=== PATIENT | female | born 1960 | race Caucasian/White ===

== ENCOUNTER 2018-08-18 11:15 | Outpatient (RCR) | payer OTHER, MEDICAID, SELFPAY ==
--- NOTE | 2018-04-06 16:31 | PT.OPPOC ---
Current Diagnoses Intervertebral disc disorders with radiculopathy, lumbar region (04/06/18) Other intervertebral disc degeneration, lumbosacral region (04/06/18) Low back pain (04/06/18) Difficulty in walking, not elsewhere classified (04/06/18) Weakness (04/06/18) Sprain of ligaments of lumbar spine, subsequent encounter (04/06/18) Provider Visit Care Team Role Provider Type Apolinar Garvin MD Attending Provider Non-Staff Primary Care Provider Specialty: Medical Address: [facility] [address], [place], [address] Email: Plan Of Care PT-OP-T Assessment and Plan Start: 04/06/18 15:16 Freq: Status: Active Protocol: Document 04/06/18 15:52 SAK (Rec: 04/06/18 16:28 SAK [id number]) Physical Therapy Assessment Rehab Potential Rehabilitation Potential Fair Evaluation Complexity Number of Personal Factors/Comorbidities 3 or More Number of Body Systems Impaired 4 or More Clinical Presentation at Evaluation Evolving Impairments Impairments Activity Tolerance Pain ROM Strength Goals activity tolerance Impairment activity tolerance Fdc Goal (LTG) Patient able to tolerate 45 min aquatic exercise program without an increase in pain LTG Duration 2 months 4 Impairment Strength Fdc Goal (LTG) Improve strength bilateral LE' s and trunk to at least 4+/5 LTG Duration 2 months 3 Impairment ROM Fdc Goal (LTG) Improve lumbar ROM to WNL LTG Duration 2 months 2 Impairment LBP as high as 7/10 Short Term Goal (STG) Decrease LBP to no greater than 5/10 with usual activities STG Duration 1 month Bench Manager Goal (LTG) Decrease pain to no greater than 3/10 LTG Duration 2 months 1 Impairment Oswestry disability index score 40% Short Term Goal (STG) Decrease Oswestry disability index score to 30% STG Duration 1 month Bench Manager Goal (LTG) Decrease Oswestry disability index score to 20% with patient able to return to work LTG Duration 2 months Physical Therapy Plan Frequency and Duration Frequency of Treatment 2x/Week Duration of Treatment 12 visits Plan of Care Start Date 04/06/18 Plan of Care End Date 06/04/18 Therapeutic Interventions Therapeutic Interventions Aquatic Therapy Patient/Caregiver Education Self-Care/Home Management Next Visit Focus/Plan Next Note Type Treatment Note Next Visit Plan Initiate aquatic therapy Plan of Care Dates Plan of Care Start Date 04/06/18 Plan of Care End Date 06/04/18 Please Sign and Return: I have reviewed this Plan of Care and certify that the skilled therapy services above are required to meet the patient?s needs. Physician Signature Date Printed Name and Credentials Clinical Instructor Signature Printed Name and Credentials
--- NOTE | 2018-04-06 16:31 | PT.OIE ---
Current Diagnoses Intervertebral disc disorders with radiculopathy, lumbar region (04/06/18) Other intervertebral disc degeneration, lumbosacral region (04/06/18) Low back pain (04/06/18) Difficulty in walking, not elsewhere classified (04/06/18) Weakness (04/06/18) Sprain of ligaments of lumbar spine, subsequent encounter (04/06/18) Provider Visit Care Team Role Provider Type Apolinar Garvin MD Attending Provider Non-Staff Primary Care Provider Specialty: Medical Address: [address] [place], [place] [address], [place], [address] Email: Physical Therapy Initial Evaluation PT-OP-A Visit Information Start: 04/06/18 15:16 Freq: Status: Active Protocol: Document 04/06/18 15:52 SAK (Rec: 04/06/18 16:28 SAK [id number]) Out-Patient Physical Therapy Visit Information Visit Information Visit Type Initial Evaluation Visit Start Time 15:10 Visit Stop Time 15:50 Total Visit Minutes 40 Visit Number 1 Number of 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 Reports during a work shift her pain gradually worsened, severe pain that night. Hasn' t been able to work since. 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 At this time patient reports employer not willing to do any accomodation of light duty, shorter shifts, etc. Prior to exacerbation of pain September 2017 patient reports she was working 4 days per week. Long history LBP, history of knee injury with resulting complex regional pain syndrome left knee. Starting accupuncture trial today through L&I. Previously seen by this PT for aquatic PT. Patient unable to do aquatic exercise independently due to cost. Treatment Goals Patient/Caregiver Goals Decrease pain, improve activity tolerance including ability to return to work. Prior Functional Status Baseline Function- ADL's Independent Baseline Function- Mobility Independent Baseline Function- Gait indep no device Baseline Function- Work/School working 4 days per week Baseline Function- Recreation/Hobbies minimal Current Functional Impairments (Reported) Functional Limitations- ADL's painful Functional Limitations- Mobility/Gait painful Functional Limitations- Work/School unable due to pain Functional Limitations- Recreation/ painful Hobbies Personal Factors Other Personal Factors That May Effect Patient smokes 1/2 to 1 pack Therapy/Recovery per day PT-OP-C Subjective Start: 04/06/18 15:16 Freq: Status: Active Protocol: Document 04/06/18 15:52 [facility] (Rec: 04/06/18 16:28 [facility] [id number]) Patient Questionnaires Oswestry Low Back Index Oswestry Score 40 Oswestry Impairment 40 to 59% Impaired (Score 40- 59) OP-PT Pain Assessment Pain Assessment Grid Paper Pain Assessment Grid Completed Yes Location lumbar spine, radiation into rahul post thighs Pain Location Details 2-7/10 Scale Used Numeric (1 - 10) Description Aching Burning Chronic Pressure Radiating Spasm Tender Tightness Frequency Frequent Pain Aggravating Factors Activity Exercise Standing Walking Pain Alleviating Factors Medication Inactivity Home Pain Medication Use Pain Medications Used Yes Pain Behaviors Pain Behaviors Facial Grimacing Guarding Wincing PT-OP-G Mobility & Gait Start: 04/06/18 15:16 Freq: Status: Active Protocol: Document 04/06/18 15:52 [facility] (Rec: 04/06/18 16:28 [facility] [id number]) OP Gait Assessment Gait Deviations General Gait Pattern Antalgic Wide Based Gait Comments Gait Comments Increased ER bilateral LE's PT-OP-J Posture/Palpation/Skin Start: 04/06/18 15:16 Freq: Status: Active Protocol: Document 04/06/18 15:52 [facility] (Rec: 04/06/18 16:28 [facility] [id number]) Posture Evaluation Position Standing Head/C-Spine Posture Forward Head T-Spine Posture Increased Kyphosis L-Spine Posture Flattened Palpation Assessment Location bilateral lumbar spine Palpation Findings Soft Tissue Tightness Muscle Guarding PT-OP-K Range of Motion Start: 04/06/18 15:16 Freq: Status: Active Protocol: Document 04/06/18 15:52 [facility] (Rec: 04/06/18 16:28 [facility] [id number]) Lumbar Spine Range of Motion Lumbar Spine Active Testing Position Standing Flexion 70 Extension 0 Rotation Left 20 Rotation Right 20 Lateral Flexion Left 10 Lateral Flexion Right 20 ROM Limitations Soft Tissue Tightness Pain Comments flexion occurs at hips, not lumbar spine Hip Goniometric Range of Motion Hip Measured in Degrees rahul Hip ROM WFL Yes Hip ROM Limitations Comments patient hypermobile Knee Goniometric Range of Motion Knee Measured in Degrees rahul Knee ROM WFL Yes Ankle and Foot Goniometric Range of Motion Ankle and Foot Measured in Degrees rahul Ankle/Foot ROM WFL Yes PT-OP-L Special Tests Start: 04/06/18 15:16 Freq: Status: Active Protocol: Document 04/06/18 15:52 [facility] (Rec: 04/06/18 16:28 [facility] [id number]) Special Tests Lumbar Spine Special Tests Prone Press Up Test Results unable Straight Leg Raise Test Results positive rahul Neural Special Tests- Lower Body Sciatic Nerve Tension Test Results positive rahul PT-OP-M Strength Start: 04/06/18 15:16 Freq: Status: Active Protocol: Document 04/06/18 15:52 [facility] (Rec: 04/06/18 16:28 [facility] [id number]) Trunk Strength Trunk Manual Muscle Testing Core Stabilization fair Reason Not Measured Pain Hip Strength Hip Manual Muscle Testing Left Flexion (L2) 4- Good- Abduction 4- Good- External Rotation 4- Good- Internal Rotation 4 Good Comments back pain with all resisted motions Right Flexion (L2) 4 Good Abduction 4 Good External Rotation 4- Good- Internal Rotation 4- Good- Comments back pain with all resisted motions Knee Strength Knee Manual Muscle Testing Left Flexion (S2) 4- Good- Extension (L3) 4 Good Comments painful Right Flexion (S2) 4+ Good+ Extension (L3) 4+ Good+ Ankle/Foot Strength Ankle and Foot Manual Muscle Testing Left Dorsiflexion (L4) 4+ Good+ Plantarflexion (S1) 4+ Good+ Right Dorsiflexion (L4) 4+ Good+ Plantarflexion (S1) 4+ Good+ Toe Strength Toe Manual Muscle Testing Left Great Toe Flexion 4+ Good+ Extension 4+ Good+ Right Great Toe Flexion 4+ Good+ Extension 4+ Good+ PT-OP-Q Treatments Start: 04/06/18 15:16 Freq: Status: Active Protocol: Document 04/06/18 15:52 [facility] (Rec: 04/06/18 16:28 [facility] [id number]) Self-Care/Home Management Treatment Education Patient Education Home Exercise Program Other Education keep track of walking, gradually progressing distance /time Activities Self-Care/Home Management Activities use of heat PT-OP-T Assessment and Plan Start: 04/06/18 15:16 Freq: Status: Active Protocol: Document 04/06/18 15:52 [facility] (Rec: 04/06/18 16:28 [facility] [id number]) Physical Therapy Assessment Rehab Potential Rehabilitation Potential Fair Evaluation Complexity Number of Personal Factors/Comorbidities 3 or More Number of Body Systems Impaired 4 or More Clinical Presentation at Evaluation Evolving Impairments Impairments Activity Tolerance Pain ROM Strength Goals activity tolerance Impairment activity tolerance Child Care Attendant School Goal (LTG) Patient able to tolerate 45 min aquatic exercise program without an increase in pain LTG Duration 2 months 4 Impairment Strength Senior Care Goal (LTG) Improve strength bilateral LE' s and trunk to at least 4+/5 LTG Duration 2 months 3 Impairment ROM Child Care Attendant School Goal (LTG) Improve lumbar ROM to WNL LTG Duration 2 months 2 Impairment LBP as high as 7/10 Short Term Goal (STG) Decrease LBP to no greater than 5/10 with usual activities STG Duration 1 month Senior Care Goal (LTG) Decrease pain to no greater than 3/10 LTG Duration 2 months 1 Impairment Oswestry disability index score 40% Short Term Goal (STG) Decrease Oswestry disability index score to 30% STG Duration 1 month Senior Care Goal (LTG) Decrease Oswestry disability index score to 20% with patient able to return to work LTG Duration 2 months Physical Therapy Plan Frequency and Duration Frequency of Treatment 2x/Week Duration of Treatment 12 visits Plan of Care Start Date 04/06/18 Plan of Care End Date 06/04/18 Therapeutic Interventions Therapeutic Interventions Aquatic Therapy Patient/Caregiver Education Self-Care/Home Management Next Visit Focus/Plan Next Note Type Treatment Note Next Visit Plan Initiate aquatic therapy
--- NOTE | 2018-04-12 09:44 | PT.OTN ---
Current Diagnoses Intervertebral disc disorders with radiculopathy, lumbar region (04/11/18) Other intervertebral disc degeneration, lumbosacral region (04/11/18) Sprain of ligaments of lumbar spine, subsequent encounter (04/11/18) Physical Therapy Treatment Note PT-OP-A Visit Information Start: 04/06/18 15:16 Freq: Status: Active Protocol: Document 04/11/18 12:30 SAK (Rec: 04/12/18 09:40 SAK [id number]) Out-Patient Physical Therapy Visit Information Visit Information Visit Type Aquatic Treatment Note Visit Start Time 12:30 Visit Stop Time 13:15 Total Visit Minutes 45 Visit Number 2 Number of SHOTGUN SHELL ASSEMBLY MACHINE ADJUSTER Visits 0 PT-OP-B Current Condition Start: 04/06/18 15:16 Freq: Status: Active Protocol: Document 04/06/18 15:52 SAK (Rec: 04/06/18 16:28 SAK [id number]) Current Condition History of Current Condition Onset Date September 2017 Current Complaints low back pain with radicular symptoms History of Current Condition Patient reports gradual worsening of LBP starting in September 2017, no known cause. Reports during a work shift her pain gradually worsened, severe pain that night. Hasn' t been able to work since. 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 At this time patient reports employer not willing to do any accomodation of light duty, shorter shifts, etc. Prior to exacerbation of pain September 2017 patient reports she was working 4 days per week. Long history LBP, history of knee injury with resulting complex regional pain syndrome left knee. Starting accupuncture trial today through L&I. Previously seen by this PT for aquatic PT. Patient unable to do aquatic exercise independently due to cost. Treatment Goals Patient/Caregiver Goals Decrease pain, improve activity tolerance including ability to return to work. Prior Functional Status Baseline Function- ADL's Independent Baseline Function- Mobility Independent Baseline Function- Gait indep no device Baseline Function- Work/School working 4 days per week Baseline Function- Recreation/Hobbies minimal Current Functional Impairments (Reported) Functional Limitations- ADL's painful Functional Limitations- Mobility/Gait painful Functional Limitations- Work/School unable due to pain Functional Limitations- Recreation/ painful Hobbies Personal Factors Other Personal Factors That May Effect Patient smokes 1/2 to 1 pack Therapy/Recovery per day PT-OP-C Subjective Start: 04/06/18 15:16 Freq: Status: Active Protocol: Document 04/11/18 12:30 [facility] (Rec: 04/12/18 09:40 [facility] [id number]) OP-PT Subjective Patient Comments Patient Comments Went to first accupuncture appointment and reports good symptom relief, going back today after PT. PT-OP-G Mobility & Gait Start: 04/06/18 15:16 Freq: Status: Active Protocol: Document 04/06/18 15:52 [facility] (Rec: 04/06/18 16:28 [facility] [id number]) OP Gait Assessment Gait Deviations General Gait Pattern Antalgic Wide Based Gait Comments Gait Comments Increased ER bilateral LE's PT-OP-J Posture/Palpation/Skin Start: 04/06/18 15:16 Freq: Status: Active Protocol: Document 04/06/18 15:52 [facility] (Rec: 04/06/18 16:28 [facility] [id number]) Posture Evaluation Position Standing Head/C-Spine Posture Forward Head T-Spine Posture Increased Kyphosis L-Spine Posture Flattened Palpation Assessment Location bilateral lumbar spine Palpation Findings Soft Tissue Tightness Muscle Guarding PT-OP-K Range of Motion Start: 04/06/18 15:16 Freq: Status: Active Protocol: Document 04/06/18 15:52 [facility] (Rec: 04/06/18 16:28 [facility] [id number]) Lumbar Spine Range of Motion Lumbar Spine Active Testing Position Standing Flexion 70 Extension 0 Rotation Left 20 Rotation Right 20 Lateral Flexion Left 10 Lateral Flexion Right 20 ROM Limitations Soft Tissue Tightness Pain Comments flexion occurs at hips, not lumbar spine Hip Goniometric Range of Motion Hip Measured in Degrees rahul Hip ROM WFL Yes Hip ROM Limitations Comments patient hypermobile Knee Goniometric Range of Motion Knee Measured in Degrees rahul Knee ROM WFL Yes Ankle and Foot Goniometric Range of Motion Ankle and Foot Measured in Degrees rahul Ankle/Foot ROM WFL Yes PT-OP-L Special Tests Start: 04/06/18 15:16 Freq: Status: Active Protocol: Document 04/06/18 15:52 [facility] (Rec: 04/06/18 16:28 [facility] [id number]) Special Tests Lumbar Spine Special Tests Prone Press Up Test Results unable Straight Leg Raise Test Results positive rahul Neural Special Tests- Lower Body Sciatic Nerve Tension Test Results positive rahul PT-OP-M Strength Start: 04/06/18 15:16 Freq: Status: Active Protocol: Document 04/06/18 15:52 [facility] (Rec: 04/06/18 16:28 [facility] [id number]) Trunk Strength Trunk Manual Muscle Testing Core Stabilization fair Reason Not Measured Pain Hip Strength Hip Manual Muscle Testing Left Flexion (L2) 4- Good- Abduction 4- Good- External Rotation 4- Good- Internal Rotation 4 Good Comments back pain with all resisted motions Right Flexion (L2) 4 Good Abduction 4 Good External Rotation 4- Good- Internal Rotation 4- Good- Comments back pain with all resisted motions Knee Strength Knee Manual Muscle Testing Left Flexion (S2) 4- Good- Extension (L3) 4 Good Comments painful Right Flexion (S2) 4+ Good+ Extension (L3) 4+ Good+ Ankle/Foot Strength Ankle and Foot Manual Muscle Testing Left Dorsiflexion (L4) 4+ Good+ Plantarflexion (S1) 4+ Good+ Right Dorsiflexion (L4) 4+ Good+ Plantarflexion (S1) 4+ Good+ Toe Strength Toe Manual Muscle Testing Left Great Toe Flexion 4+ Good+ Extension 4+ Good+ Right Great Toe Flexion 4+ Good+ Extension 4+ Good+ PT-OP-Q Treatments Start: 04/06/18 15:16 Freq: Status: Active Protocol: Document 04/06/18 15:52 [facility] (Rec: 04/06/18 16:28 [facility] [id number]) Self-Care/Home Management Treatment Education Patient Education Home Exercise Program Other Education keep track of walking, gradually progressing distance /time Activities Self-Care/Home Management Activities use of heat PT-OP-S Aquatic Treatment Start: 04/06/18 15:16 Freq: Status: Active Protocol: Document 04/11/18 12:30 [facility] (Rec: 04/12/18 09:43 [facility] [id number]) Aquatics Treatment Pool Entry/Exit Pool Entry/Exit Method Stairs Assistance Independent Water Walking straight leg may Comments painful fwd,bck,side,may Water Level Chest Level Level of Assistance Verbal Cues Lower Extremity Exercises circles Details CW and CCW Body Position Standing Reps/Duration 10x ea hip ab/ad, flex/ext Body Position Standing Water Level Chest Level Reps/Duration 10xea Lower Extremity Stretches HS Body Position Standing Water Level [place] Reps/Duration 2 Comments wall Upper Extremity Exercises hor ab/ad, flex/ext Details DLS emphasis, rahul and unil Body Position Standing Water Level Chest Level Reps/Duration 10x ea [place] Activities [place] Activities Bicycle Bicycle Backwards [place] Running Hip Abduction/Adduction Equipment large noodle Duration 20 min Comments cues for core stabilization and postural alignment PT-OP-T Assessment and Plan Start: 04/06/18 15:16 Freq: Status: Active Protocol: Document 04/11/18 12:30 SAK (Rec: 04/12/18 09:40 SAK [id number]) Physical Therapy Assessment Goals activity tolerance Impairment activity tolerance Novelty Twister Operator Goal (LTG) Patient able to tolerate 45 min aquatic exercise program without an increase in pain LTG Duration 2 months 4 Impairment Strength Novelty Twister Operator Goal (LTG) Improve strength bilateral LE' s and trunk to at least 4+/5 LTG Duration 2 months 3 Impairment ROM Intermediate Goal (LTG) Improve lumbar ROM to WNL LTG Duration 2 months 2 Impairment LBP as high as 7/10 Short Term Goal (STG) Decrease LBP to no greater than 5/10 with usual activities STG Duration 1 month Novelty Twister Operator Goal (LTG) Decrease pain to no greater than 3/10 LTG Duration 2 months 1 Impairment Oswestry disability index score 40% Short Term Goal (STG) Decrease Oswestry disability index score to 30% STG Duration 1 month Novelty Twister Operator Goal (LTG) Decrease Oswestry disability index score to 20% with patient able to return to work LTG Duration 2 months Assessment Summary Assessment good tolerance for aquatic therapy session today, only activity painful was straight leg march in shallow Physical Therapy Plan Frequency and Duration Frequency of Treatment 2x/Week Duration of Treatment 12 visits Plan of Care Start Date 04/06/18 Plan of Care End Date 06/04/18 Next Visit Focus/Plan Next Note Type Treatment Note Next Visit Plan Progress aquatic therapy activities as tolerated. Manual techniques as needed for pain management.
--- NOTE | 2018-04-20 14:49 | PT.OTN ---
Current Diagnoses Intervertebral disc disorders with radiculopathy, lumbar region (04/20/18) Other intervertebral disc degeneration, lumbosacral region (04/20/18) Sprain of ligaments of lumbar spine, subsequent encounter (04/20/18) Physical Therapy Treatment Note PT-OP-A Visit Information Start: 04/06/18 15:16 Freq: Status: Active Protocol: Document 04/20/18 10:15 LJ (Rec: 04/20/18 14:48 LJ [id number]) Out-Patient Physical Therapy Visit Information Visit Information Visit Type Aquatic Treatment Note Visit Start Time 10:15 Visit Stop Time 11:00 Total Visit Minutes 45 Visit Number 3 Number of REGISTERED PUBLIC SUR[employer]YOR Visits 1 PT-OP-B Current Condition Start: 04/06/18 15:16 Freq: Status: Active Protocol: Document 04/06/18 15:52 SAK (Rec: 04/06/18 16:28 SAK [id number]) Current Condition History of Current Condition Onset Date September 2017 Current Complaints low back pain with radicular symptoms History of Current Condition Patient reports gradual worsening of LBP starting in September 2017, no known cause. Reports during a work shift her pain gradually worsened, severe pain that night. Hasn' t been able to work since. 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 At this time patient reports employer not willing to do any accomodation of light duty, shorter shifts, etc. Prior to exacerbation of pain September 2017 patient reports she was working 4 days per week. Long history LBP, history of knee injury with resulting complex regional pain syndrome left knee. Starting accupuncture trial today through [facility]. Previously seen by this PT for aquatic PT. Patient unable to do aquatic exercise independently due to cost. Treatment Goals Patient/Caregiver Goals Decrease pain, improve activity tolerance including ability to return to work. Prior Functional Status Baseline Function- ADL's Independent Baseline Function- Mobility Independent Baseline Function- Gait indep no device Baseline Function- Work/School working 4 days per week Baseline Function- Recreation/Hobbies minimal Current Functional Impairments (Reported) Functional Limitations- ADL's painful Functional Limitations- Mobility/Gait painful Functional Limitations- Work/School unable due to pain Functional Limitations- Recreation/ painful Hobbies Personal Factors Other Personal Factors That May Effect Patient smokes 1/2 to 1 pack Therapy/Recovery per day PT-OP-C Subjective Start: 04/06/18 15:16 Freq: Status: Active Protocol: Document 04/11/18 12:30 SAK (Rec: 04/12/18 09:40 [facility] [id number]) OP-PT Subjective Patient Comments Patient Comments Went to first accupuncture appointment and reports good symptom relief, going back today after PT. PT-OP-G Mobility & Gait Start: 04/06/18 15:16 Freq: Status: Active Protocol: Document 04/06/18 15:52 SAK (Rec: 04/06/18 16:28 [facility] [id number]) OP Gait Assessment Gait Deviations General Gait Pattern Antalgic Wide Based Gait Comments Gait Comments Increased ER bilateral LE's PT-OP-J Posture/Palpation/Skin Start: 04/06/18 15:16 Freq: Status: Active Protocol: Document 04/06/18 15:52 [facility] (Rec: 04/06/18 16:28 [facility] [id number]) Posture Evaluation Position Standing Head/C-Spine Posture Forward Head T-Spine Posture Increased Kyphosis L-Spine Posture Flattened Palpation Assessment Location bilateral lumbar spine Palpation Findings Soft Tissue Tightness Muscle Guarding PT-OP-K Range of Motion Start: 04/06/18 15:16 Freq: Status: Active Protocol: Document 04/06/18 15:52 [facility] (Rec: 04/06/18 16:28 [facility] [id number]) Lumbar Spine Range of Motion Lumbar Spine Active Testing Position Standing Flexion 70 Extension 0 Rotation Left 20 Rotation Right 20 Lateral Flexion Left 10 Lateral Flexion Right 20 ROM Limitations Soft Tissue Tightness Pain Comments flexion occurs at hips, not lumbar spine Hip Goniometric Range of Motion Hip Measured in Degrees rahul Hip ROM WFL Yes Hip ROM Limitations Comments patient hypermobile Knee Goniometric Range of Motion Knee Measured in Degrees rahul Knee ROM WFL Yes Ankle and Foot Goniometric Range of Motion Ankle and Foot Measured in Degrees rahul Ankle/Foot ROM WFL Yes PT-OP-L Special Tests Start: 04/06/18 15:16 Freq: Status: Active Protocol: Document 04/06/18 15:52 [facility] (Rec: 04/06/18 16:28 [facility] [id number]) Special Tests Lumbar Spine Special Tests Prone Press Up Test Results unable Straight Leg Raise Test Results positive rahul Neural Special Tests- Lower Body Sciatic Nerve Tension Test Results positive rahul PT-OP-M Strength Start: 04/06/18 15:16 Freq: Status: Active Protocol: Document 04/06/18 15:52 SAK (Rec: 04/06/18 16:28 SAK [id number]) Trunk Strength Trunk Manual Muscle Testing Core Stabilization fair Reason Not Measured Pain Hip Strength Hip Manual Muscle Testing Left Flexion (L2) 4- Good- Abduction 4- Good- External Rotation 4- Good- Internal Rotation 4 Good Comments back pain with all resisted motions Right Flexion (L2) 4 Good Abduction 4 Good External Rotation 4- Good- Internal Rotation 4- Good- Comments back pain with all resisted motions Knee Strength Knee Manual Muscle Testing Left Flexion (S2) 4- Good- Extension (L3) 4 Good Comments painful Right Flexion (S2) 4+ Good+ Extension (L3) 4+ Good+ Ankle/Foot Strength Ankle and Foot Manual Muscle Testing Left Dorsiflexion (L4) 4+ Good+ Plantarflexion (S1) 4+ Good+ Right Dorsiflexion (L4) 4+ Good+ Plantarflexion (S1) 4+ Good+ Toe Strength Toe Manual Muscle Testing Left Great Toe Flexion 4+ Good+ Extension 4+ Good+ Right Great Toe Flexion 4+ Good+ Extension 4+ Good+ PT-OP-Q Treatments Start: 04/06/18 15:16 Freq: Status: Active Protocol: Document 04/06/18 15:52 [facility] (Rec: 04/06/18 16:28 [facility] [id number]) Self-Care/Home Management Treatment Education Patient Education Home Exercise Program Other Education keep track of walking, gradually progressing distance /time Activities Self-Care/Home Management Activities use of heat PT-OP-S Aquatic Treatment Start: 04/06/18 15:16 Freq: Status: Active Protocol: Document 04/20/18 10:15 WILLIAM (Rec: 04/20/18 14:48 LJ [id number]) Aquatics Treatment Pool Entry/Exit Pool Entry/Exit Method Stairs Assistance Independent Water Walking fwd,bck, Water Level Chest Level Lower Extremity Exercises circles Details CW and CCW Body Position Standing Reps/Duration 10x ea hip ab/ad, flex/ext Body Position Standing Water Level Chest Level Reps/Duration 10xea Lower Extremity Stretches HS Water Level [place] Reps/Duration 2 Comments wall Upper Extremity Exercises lateral pull downs w/lg buoys Water Level [place] Reps/Duration 2 x5 reps [place] Activities [place] Activities Bicycle Bicycle Backwards [place] Running Hip Abduction/Adduction Sit Kicks Other Activities pendulum ab curls SLR in corner x 10 Equipment large noodle Duration 20 min Comments cues for core stabilization and postural alignment Manual Techniques Erin Bourne For lumbar flexibility and relaxation PT-OP-T Assessment and Plan Start: 04/06/18 15:16 Freq: Status: Active Protocol: Document 04/20/18 10:15 WILLIAM (Rec: 04/20/18 14:48 WILLIAM [id number]) Physical Therapy Assessment Rehab Potential Rehabilitation Potential Fair Evaluation Complexity Number of Personal Factors/Comorbidities 3 or More Number of Body Systems Impaired 4 or More Clinical Presentation at Evaluation Evolving Impairments Impairments Activity Tolerance Pain ROM Strength Goals activity tolerance Impairment activity tolerance Snf Goal (LTG) Patient able to tolerate 45 min aquatic exercise program without an increase in pain. Reluctant to attempt activities recommended by therapist. Tended to do what she had been doing in the past LTG Duration 2 months 4 Impairment Strength Snf Goal (LTG) Improve strength bilateral LE' s and trunk to at least 4+/5 LTG Duration 2 months 3 Impairment ROM Snf Goal (LTG) Improve lumbar ROM to WNL LTG Duration 2 months 2 Impairment LBP as high as 7/10 Short Term Goal (STG) Decrease LBP to no greater than 5/10 with usual activities STG Duration 1 month Baggage Clerk Goal (LTG) Decrease pain to no greater than 3/10 LTG Duration 2 months 1 Impairment Oswestry disability index score 40% Short Term Goal (STG) Decrease Oswestry disability index score to 30% STG Duration 1 month Snf Goal (LTG) Decrease Oswestry disability index score to 20% with patient able to return to work LTG Duration 2 months Assessment Summary Assessment Pt tolerated gentle exercises in deep and shallow. Tended to do the exercises she waned rather than exercises recommended by therapist. No c /o pain. Pt remained in pool to continue workout on her own . Demonstrated good body awareness and posture. Physical Therapy Plan Next Visit Focus/Plan Next Note Type Treatment Note Next Visit Plan Progress aquatic therapy activities as tolerated. Manual techniques as needed for pain management.
--- NOTE | 2018-04-20 14:49 | PT.OTN ---
Current Diagnoses Intervertebral disc disorders with radiculopathy, lumbar region (04/20/18) Other intervertebral disc degeneration, lumbosacral region (04/20/18) Sprain of ligaments of lumbar spine, subsequent encounter (04/20/18) Physical Therapy Treatment Note PT-OP-A Visit Information Start: 04/06/18 15:16 Freq: Status: Active Protocol: Document 04/20/18 10:15 LJ (Rec: 04/20/18 14:48 LJ [id number]) Out-Patient Physical Therapy Visit Information Visit Information Visit Type Aquatic Treatment Note Visit Start Time 10:15 Visit Stop Time 11:00 Total Visit Minutes 45 Visit Number 3 Number of ENVIRONMENTAL DEPARTMENT MANAGER Visits 1 PT-OP-B Current Condition Start: 04/06/18 15:16 Freq: Status: Active Protocol: Document 04/06/18 15:52 SAK (Rec: 04/06/18 16:28 SAK [id number]) Current Condition History of Current Condition Onset Date September 2017 Current Complaints low back pain with radicular symptoms History of Current Condition Patient reports gradual worsening of LBP starting in September 2017, no known cause. Reports during a work shift her pain gradually worsened, severe pain that night. Hasn' t been able to work since. 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 At this time patient reports employer not willing to do any accomodation of light duty, shorter shifts, etc. Prior to exacerbation of pain September 2017 patient reports she was working 4 days per week. Long history LBP, history of knee injury with resulting complex regional pain syndrome left knee. Starting accupuncture trial today through [facility]. Previously seen by this PT for aquatic PT. Patient unable to do aquatic exercise independently due to cost. Treatment Goals Patient/Caregiver Goals Decrease pain, improve activity tolerance including ability to return to work. Prior Functional Status Baseline Function- ADL's Independent Baseline Function- Mobility Independent Baseline Function- Gait indep no device Baseline Function- Work/School working 4 days per week Baseline Function- Recreation/Hobbies minimal Current Functional Impairments (Reported) Functional Limitations- ADL's painful Functional Limitations- Mobility/Gait painful Functional Limitations- Work/School unable due to pain Functional Limitations- Recreation/ painful Hobbies Personal Factors Other Personal Factors That May Effect Patient smokes 1/2 to 1 pack Therapy/Recovery per day PT-OP-C Subjective Start: 04/06/18 15:16 Freq: Status: Active Protocol: Document 04/20/18 14:48 LJ (Rec: 04/20/18 14:49 LJ [email or web address]) OP-PT Subjective Patient Comments Patient Comments no new complaints. 04/20/18 14:49 PT OP Treatment Note by Gertrudis Joseph Current Diagnoses Intervertebral disc disorders with radiculopathy, lumbar region (04/20/18) Other intervertebral disc degeneration, lumbosacral region (04/20/18) Sprain of ligaments of lumbar spine, subsequent encounter (04/20/18) Physical Therapy Treatment Note PT-OP-A Visit Information Start: 04/06/18 15:16 Freq: Status: Active Protocol: Document 04/20/18 10:15 LJ (Rec: 04/20/18 14:48 LJ [email or web address]) Out-Patient Physical Therapy Visit Information Visit Information Visit Type Aquatic Treatment Note Visit Start Time 10:15 Visit Stop Time 11:00 Total Visit Minutes 45 Visit Number 3 Number of ENVIRONMENTAL DEPARTMENT MANAGER Visits 1 PT-OP-B Current Condition Start: 04/06/18 15:16 Freq: Status: Active Protocol: Document 04/06/18 15:52 SAK (Rec: 04/06/18 16:28 SAK [id number]) Current Condition History of Current Condition Onset Date September 2017 Current Complaints low back pain with radicular symptoms History of Current Condition Patient reports gradual worsening of LBP starting in September 2017, no known cause. Reports during a work shift her pain gradually worsened, severe pain that night. Hasn' t been able to work since. 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 At this time patient reports employer not willing to do any accomodation of light duty, shorter shifts, etc. Prior to exacerbation of pain September 2017 patient reports she was working 4 days per week. Long history LBP, history of knee injury with resulting complex regional pain syndrome left knee. Starting accupuncture trial today through [facility]. Previously seen by this PT for aquatic PT. Patient unable to do aquatic exercise independently due to cost. Treatment Goals Patient/Caregiver Goals Decrease pain, improve activity tolerance including ability to return to work. Prior Functional Status Baseline Function- ADL's Independent Baseline Function- Mobility Independent Baseline Function- Gait indep no device Baseline Function- Work/School working 4 days per week Baseline Function- Recreation/Hobbies minimal Current Functional Impairments (Reported) Functional Limitations- ADL's painful Functional Limitations- Mobility/Gait painful Functional Limitations- Work/School unable due to pain Functional Limitations- Recreation/ painful Hobbies Personal Factors Other Personal Factors That May Effect Patient smokes 1/2 to 1 pack Therapy/Recovery per day PT-OP-C Subjective Start: 04/06/18 15:16 Freq: Status: Active Protocol: Document 04/11/18 12:30 SAK (Rec: 04/12/18 09:40 [facility] [id number]) OP-PT Subjective Patient Comments Patient Comments Went to first accupuncture appointment and reports good symptom relief, going back today after PT. PT-OP-G Mobility & Gait Start: 04/06/18 15:16 Freq: Status: Active Protocol: Document 04/06/18 15:52 SAK (Rec: 04/06/18 16:28 [facility] [id number]) OP Gait Assessment Gait Deviations General Gait Pattern Antalgic Wide Based Gait Comments Gait Comments Increased ER bilateral LE's PT-OP-J Posture/Palpation/Skin Start: 04/06/18 15:16 Freq: Status: Active Protocol: Document 04/06/18 15:52 SAK (Rec: 04/06/18 16:28 [facility] [id number]) Posture Evaluation Position Standing Head/C-Spine Posture Forward Head T-Spine Posture Increased Kyphosis L-Spine Posture Flattened Palpation Assessment Location bilateral lumbar spine Palpation Findings Soft Tissue Tightness Muscle Guarding PT-OP-K Range of Motion Start: 04/06/18 15:16 Freq: Status: Active Protocol: Document 04/06/18 15:52 [facility] (Rec: 04/06/18 16:28 [facility] [id number]) Lumbar Spine Range of Motion Lumbar Spine Active Testing Position Standing Flexion 70 Extension 0 Rotation Left 20 Rotation Right 20 Lateral Flexion Left 10 Lateral Flexion Right 20 ROM Limitations Soft Tissue Tightness Pain Comments flexion occurs at hips, not lumbar spine Hip Goniometric Range of Motion Hip Measured in Degrees rahul Hip ROM WFL Yes Hip ROM Limitations Comments patient hypermobile Knee Goniometric Range of Motion Knee Measured in Degrees rahul Knee ROM WFL Yes Ankle and Foot Goniometric Range of Motion Ankle and Foot Measured in Degrees rahul Ankle/Foot ROM WFL Yes PT-OP-L Special Tests Start: 04/06/18 15:16 Freq: Status: Active Protocol: Document 04/06/18 15:52 [facility] (Rec: 04/06/18 16:28 [facility] [id number]) Special Tests Lumbar Spine Special Tests Prone Press Up Test Results unable Straight Leg Raise Test Results positive rahul Neural Special Tests- Lower Body Sciatic Nerve Tension Test Results positive rahul PT-OP-M Strength Start: 04/06/18 15:16 Freq: Status: Active Protocol: Document 04/06/18 15:52 [facility] (Rec: 04/06/18 16:28 [facility] [id number]) Trunk Strength Trunk Manual Muscle Testing Core Stabilization fair Reason Not Measured Pain Hip Strength Hip Manual Muscle Testing Left Flexion (L2) 4- Good- Abduction 4- Good- External Rotation 4- Good- Internal Rotation 4 Good Comments back pain with all resisted motions Right Flexion (L2) 4 Good Abduction 4 Good External Rotation 4- Good- Internal Rotation 4- Good- Comments back pain with all resisted motions Knee Strength Knee Manual Muscle Testing Left Flexion (S2) 4- Good- Extension (L3) 4 Good Comments painful Right Flexion (S2) 4+ Good+ Extension (L3) 4+ Good+ Ankle/Foot Strength Ankle and Foot Manual Muscle Testing Left Dorsiflexion (L4) 4+ Good+ Plantarflexion (S1) 4+ Good+ Right Dorsiflexion (L4) 4+ Good+ Plantarflexion (S1) 4+ Good+ Toe Strength Toe Manual Muscle Testing Left Great Toe Flexion 4+ Good+ Extension 4+ Good+ Right Great Toe Flexion 4+ Good+ Extension 4+ Good+ PT-OP-Q Treatments Start: 04/06/18 15:16 Freq: Status: Active Protocol: Document 04/06/18 15:52 [facility] (Rec: 04/06/18 16:28 [facility] [id number]) Self-Care/Home Management Treatment Education Patient Education Home Exercise Program Other Education keep track of walking, gradually progressing distance /time Activities Self-Care/Home Management Activities use of heat PT-OP-S Aquatic Treatment Start: 04/06/18 15:16 Freq: Status: Active Protocol: Document 04/20/18 10:15 WILLIAM (Rec: 04/20/18 14:48 LJ [id number]) Aquatics Treatment Pool Entry/Exit Pool Entry/Exit Method Stairs Assistance Independent Water Walking fwd,bck, Water Level Chest Level Lower Extremity Exercises circles Details CW and CCW Body Position Standing Reps/Duration 10x ea hip ab/ad, flex/ext Body Position Standing Water Level Chest Level Reps/Duration 10xea Lower Extremity Stretches HS Water Level [place] Reps/Duration 2 Comments wall Upper Extremity Exercises lateral pull downs w/lg buoys Water Level [place] Reps/Duration 2 x5 reps [place] Activities [place] Activities Bicycle Bicycle Backwards [place] Running Hip Abduction/Adduction Sit Kicks Other Activities pendulum ab curls SLR in corner x 10 Equipment large noodle Duration 20 min Comments cues for core stabilization and postural alignment Manual Techniques Bad Ragaz For lumbar flexibility and relaxation PT-OP-T Assessment and Plan Start: 04/06/18 15:16 Freq: Status: Active Protocol: Document 04/20/18 10:15 WILLIAM (Rec: 04/20/18 14:48 WILLIAM [email or web address]) Physical Therapy Assessment Rehab Potential Rehabilitation Potential Fair Evaluation Complexity Number of Personal Factors/Comorbidities 3 or More Number of Body Systems Impaired 4 or More Clinical Presentation at Evaluation Evolving Impairments Impairments Activity Tolerance Pain ROM Strength Goals activity tolerance Impairment activity tolerance Jail Goal (LTG) Patient able to tolerate 45 min aquatic exercise program without an increase in pain. Reluctant to attempt activities recommended by therapist. Tended to do what she had been doing in the past LTG Duration 2 months 4 Impairment Strength Rn Internship Goal (LTG) Improve strength bilateral LE' s and trunk to at least 4+/5 LTG Duration 2 months 3 Impairment ROM Rn Internship Goal (LTG) Improve lumbar ROM to WNL LTG Duration 2 months 2 Impairment LBP as high as 7/10 Short Term Goal (STG) Decrease LBP to no greater than 5/10 with usual activities STG Duration 1 month Rn Internship Goal (LTG) Decrease pain to no greater than 3/10 LTG Duration 2 months 1 Impairment Oswestry disability index score 40% Short Term Goal (STG) Decrease Oswestry disability index score to 30% STG Duration 1 month Jail Goal (LTG) Decrease Oswestry disability index score to 20% with patient able to return to work LTG Duration 2 months Assessment Summary Assessment Pt tolerated gentle exercises in deep and shallow. Tended to do the exercises she waned rather than exercises recommended by therapist. No c /o pain. Pt remained in pool to continue workout on her own . Demonstrated good body awareness and posture. Physical Therapy Plan Next Visit Focus/Plan Next Note Type Treatment Note Next Visit Plan Progress aquatic therapy activities as tolerated. Manual techniques as needed for pain management. Initialized on 04/20/18 14:49 - END OF NOTE PT-OP-G Mobility & Gait Start: 04/06/18 15:16 Freq: Status: Active Protocol: Document 04/06/18 15:52 SAK (Rec: 04/06/18 16:28 SAK [id number]) OP Gait Assessment Gait Deviations General Gait Pattern Antalgic Wide Based Gait Comments Gait Comments Increased ER bilateral LE's PT-OP-J Posture/Palpation/Skin Start: 04/06/18 15:16 Freq: Status: Active Protocol: Document 04/06/18 15:52 SAK (Rec: 04/06/18 16:28 [facility] [id number]) Posture Evaluation Position Standing Head/C-Spine Posture Forward Head T-Spine Posture Increased Kyphosis L-Spine Posture Flattened Palpation Assessment Location bilateral lumbar spine Palpation Findings Soft Tissue Tightness Muscle Guarding PT-OP-K Range of Motion Start: 04/06/18 15:16 Freq: Status: Active Protocol: Document 04/06/18 15:52 SAK (Rec: 04/06/18 16:28 [facility] [id number]) Lumbar Spine Range of Motion Lumbar Spine Active Testing Position Standing Flexion 70 Extension 0 Rotation Left 20 Rotation Right 20 Lateral Flexion Left 10 Lateral Flexion Right 20 ROM Limitations Soft Tissue Tightness Pain Comments flexion occurs at hips, not lumbar spine Hip Goniometric Range of Motion Hip Measured in Degrees rahul Hip ROM WFL Yes Hip ROM Limitations Comments patient hypermobile Knee Goniometric Range of Motion Knee Measured in Degrees rahul Knee ROM WFL Yes Ankle and Foot Goniometric Range of Motion Ankle and Foot Measured in Degrees rahul Ankle/Foot ROM WFL Yes PT-OP-L Special Tests Start: 04/06/18 15:16 Freq: Status: Active Protocol: Document 04/06/18 15:52 SAK (Rec: 04/06/18 16:28 [facility] [id number]) Special Tests Lumbar Spine Special Tests Prone Press Up Test Results unable Straight Leg Raise Test Results positive rahul Neural Special Tests- Lower Body Sciatic Nerve Tension Test Results positive rahul PT-OP-M Strength Start: 04/06/18 15:16 Freq: Status: Active Protocol: Document 04/06/18 15:52 [facility] (Rec: 04/06/18 16:28 [facility] [id number]) Trunk Strength Trunk Manual Muscle Testing Core Stabilization fair Reason Not Measured Pain Hip Strength Hip Manual Muscle Testing Left Flexion (L2) 4- Good- Abduction 4- Good- External Rotation 4- Good- Internal Rotation 4 Good Comments back pain with all resisted motions Right Flexion (L2) 4 Good Abduction 4 Good External Rotation 4- Good- Internal Rotation 4- Good- Comments back pain with all resisted motions Knee Strength Knee Manual Muscle Testing Left Flexion (S2) 4- Good- Extension (L3) 4 Good Comments painful Right Flexion (S2) 4+ Good+ Extension (L3) 4+ Good+ Ankle/Foot Strength Ankle and Foot Manual Muscle Testing Left Dorsiflexion (L4) 4+ Good+ Plantarflexion (S1) 4+ Good+ Right Dorsiflexion (L4) 4+ Good+ Plantarflexion (S1) 4+ Good+ Toe Strength Toe Manual Muscle Testing Left Great Toe Flexion 4+ Good+ Extension 4+ Good+ Right Great Toe Flexion 4+ Good+ Extension 4+ Good+ PT-OP-Q Treatments Start: 04/06/18 15:16 Freq: Status: Active Protocol: Document 04/06/18 15:52 [facility] (Rec: 04/06/18 16:28 [facility] [id number]) Self-Care/Home Management Treatment Education Patient Education Home Exercise Program Other Education keep track of walking, gradually progressing distance /time Activities Self-Care/Home Management Activities use of heat PT-OP-S Aquatic Treatment Start: 04/06/18 15:16 Freq: Status: Active Protocol: Document 04/20/18 10:15 WILLIAM (Rec: 04/20/18 14:48 WILLIAM [email or web address]) Aquatics Treatment Pool Entry/Exit Pool Entry/Exit Method Stairs Assistance Independent Water Walking fwd,bck,,may Water Level Chest Level Lower Extremity Exercises circles Details CW and CCW Body Position Standing Reps/Duration 10x ea hip ab/ad, flex/ext Body Position Standing Water Level Chest Level Reps/Duration 10xea Lower Extremity Stretches HS Water Level [place] Reps/Duration 2 Comments wall Upper Extremity Exercises lateral pull downs w/lg buoys Water Level [place] Reps/Duration 2 x5 reps [place] Activities [place] Activities Bicycle Bicycle Backwards [place] Running Hip Abduction/Adduction Sit Kicks Other Activities pendulum ab curls SLR in corner x 10 Equipment large noodle Duration 20 min Comments cues for core stabilization and postural alignment Manual Techniques Erin Bourne For lumbar flexibility and relaxation PT-OP-T Assessment and Plan Start: 04/06/18 15:16 Freq: Status: Active Protocol: Document 04/20/18 10:15 WILLIAM (Rec: 04/20/18 14:48 WILLIAM [email or web address]) Physical Therapy Assessment Rehab Potential Rehabilitation Potential Fair Evaluation Complexity Number of Personal Factors/Comorbidities 3 or More Number of Body Systems Impaired 4 or More Clinical Presentation at Evaluation Evolving Impairments Impairments Activity Tolerance Pain ROM Strength Goals activity tolerance Impairment activity tolerance Rn Internship Goal (LTG) Patient able to tolerate 45 min aquatic exercise program without an increase in pain. Reluctant to attempt activities recommended by therapist. Tended to do what she had been doing in the past LTG Duration 2 months 4 Impairment Strength Jail Goal (LTG) Improve strength bilateral LE' s and trunk to at least 4+/5 LTG Duration 2 months 3 Impairment ROM Jail Goal (LTG) Improve lumbar ROM to WNL LTG Duration 2 months 2 Impairment LBP as high as 7/10 Short Term Goal (STG) Decrease LBP to no greater than 5/10 with usual activities STG Duration 1 month Rn Internship Goal (LTG) Decrease pain to no greater than 3/10 LTG Duration 2 months 1 Impairment Oswestry disability index score 40% Short Term Goal (STG) Decrease Oswestry disability index score to 30% STG Duration 1 month Jail Goal (LTG) Decrease Oswestry disability index score to 20% with patient able to return to work LTG Duration 2 months Assessment Summary Assessment Pt tolerated gentle exercises in deep and shallow. Tended to do the exercises she waned rather than exercises recommended by therapist. No c /o pain. Pt remained in pool to continue workout on her own . Demonstrated good body awareness and posture. Physical Therapy Plan Next Visit Focus/Plan Next Note Type Treatment Note Next Visit Plan Progress aquatic therapy activities as tolerated. Manual techniques as needed for pain management.
--- NOTE | 2018-04-25 15:14 | PT.OTN ---
Current Diagnoses Intervertebral disc disorders with radiculopathy, lumbar region (04/25/18) Other intervertebral disc degeneration, lumbosacral region (04/25/18) Sprain of ligaments of lumbar spine, subsequent encounter (04/25/18) Physical Therapy Treatment Note PT-OP-A Visit Information Start: 04/06/18 15:16 Freq: Status: Active Protocol: Document 04/25/18 12:30 [facility]AK (Rec: 04/25/18 15:14 [facility]AK [id number]) Out-Patient Physical Therapy Visit Information Visit Information Visit Type Aquatic Treatment Note Visit Start Time 12:30 Visit Stop Time 13:15 Total Visit Minutes 45 Visit Number 4 Number of POWER SYSTEM ELECTRICAL ENGINEER Visits 0 PT-OP-B Current Condition Start: 04/06/18 15:16 Freq: Status: Active Protocol: Document 04/06/18 15:52 SAK (Rec: 04/06/18 16:28 SAK [id number]) Current Condition History of Current Condition Onset Date September 2017 Current Complaints low back pain with radicular symptoms History of Current Condition Patient reports gradual worsening of LBP starting in September 2017, no known cause. Reports during a work shift her pain gradually worsened, severe pain that night. Hasn' t been able to work since. 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 At this time patient reports employer not willing to do any accomodation of light duty, shorter shifts, etc. Prior to exacerbation of pain September 2017 patient reports she was working 4 days per week. Long history LBP, history of knee injury with resulting complex regional pain syndrome left knee. Starting accupuncture trial today through L&I. Previously seen by this PT for aquatic PT. Patient unable to do aquatic exercise independently due to cost. Treatment Goals Patient/Caregiver Goals Decrease pain, improve activity tolerance including ability to return to work. Prior Functional Status Baseline Function- ADL's Independent Baseline Function- Mobility Independent Baseline Function- Gait indep no device Baseline Function- Work/School working 4 days per week Baseline Function- Recreation/Hobbies minimal Current Functional Impairments (Reported) Functional Limitations- ADL's painful Functional Limitations- Mobility/Gait painful Functional Limitations- Work/School unable due to pain Functional Limitations- Recreation/ painful Hobbies Personal Factors Other Personal Factors That May Effect Patient smokes 1/2 to 1 pack Therapy/Recovery per day PT-OP-C Subjective Start: 04/06/18 15:16 Freq: Status: Active Protocol: Document 04/25/18 12:30 SAK (Rec: 04/25/18 15:14 [facility] [id number]) OP-PT Subjective Patient Comments Patient Comments Reports it has been a hard week but is seeing her accupuncturist after PT today, feels that was very helpful. PT-OP-G Mobility & Gait Start: 04/06/18 15:16 Freq: Status: Active Protocol: Document 04/06/18 15:52 SAK (Rec: 04/06/18 16:28 [facility] [id number]) OP Gait Assessment Gait Deviations General Gait Pattern Antalgic Wide Based Gait Comments Gait Comments Increased ER bilateral LE's PT-OP-J Posture/Palpation/Skin Start: 04/06/18 15:16 Freq: Status: Active Protocol: Document 04/06/18 15:52 SAK (Rec: 04/06/18 16:28 [facility] [id number]) Posture Evaluation Position Standing Head/C-Spine Posture Forward Head T-Spine Posture Increased Kyphosis L-Spine Posture Flattened Palpation Assessment Location bilateral lumbar spine Palpation Findings Soft Tissue Tightness Muscle Guarding PT-OP-K Range of Motion Start: 04/06/18 15:16 Freq: Status: Active Protocol: Document 04/06/18 15:52 SAK (Rec: 04/06/18 16:28 [facility] [id number]) Lumbar Spine Range of Motion Lumbar Spine Active Testing Position Standing Flexion 70 Extension 0 Rotation Left 20 Rotation Right 20 Lateral Flexion Left 10 Lateral Flexion Right 20 ROM Limitations Soft Tissue Tightness Pain Comments flexion occurs at hips, not lumbar spine Hip Goniometric Range of Motion Hip Measured in Degrees rahul Hip ROM WFL Yes Hip ROM Limitations Comments patient hypermobile Knee Goniometric Range of Motion Knee Measured in Degrees rahul Knee ROM WFL Yes Ankle and Foot Goniometric Range of Motion Ankle and Foot Measured in Degrees rahul Ankle/Foot ROM WFL Yes PT-OP-L Special Tests Start: 04/06/18 15:16 Freq: Status: Active Protocol: Document 04/06/18 15:52 [facility] (Rec: 04/06/18 16:28 [facility] [id number]) Special Tests Lumbar Spine Special Tests Prone Press Up Test Results unable Straight Leg Raise Test Results positive rahul Neural Special Tests- Lower Body Sciatic Nerve Tension Test Results positive rahul PT-OP-M Strength Start: 04/06/18 15:16 Freq: Status: Active Protocol: Document 04/06/18 15:52 [facility] (Rec: 04/06/18 16:28 [facility] [id number]) Trunk Strength Trunk Manual Muscle Testing Core Stabilization fair Reason Not Measured Pain Hip Strength Hip Manual Muscle Testing Left Flexion (L2) 4- Good- Abduction 4- Good- External Rotation 4- Good- Internal Rotation 4 Good Comments back pain with all resisted motions Right Flexion (L2) 4 Good Abduction 4 Good External Rotation 4- Good- Internal Rotation 4- Good- Comments back pain with all resisted motions Knee Strength Knee Manual Muscle Testing Left Flexion (S2) 4- Good- Extension (L3) 4 Good Comments painful Right Flexion (S2) 4+ Good+ Extension (L3) 4+ Good+ Ankle/Foot Strength Ankle and Foot Manual Muscle Testing Left Dorsiflexion (L4) 4+ Good+ Plantarflexion (S1) 4+ Good+ Right Dorsiflexion (L4) 4+ Good+ Plantarflexion (S1) 4+ Good+ Toe Strength Toe Manual Muscle Testing Left Great Toe Flexion 4+ Good+ Extension 4+ Good+ Right Great Toe Flexion 4+ Good+ Extension 4+ Good+ PT-OP-Q Treatments Start: 04/06/18 15:16 Freq: Status: Active Protocol: Document 04/06/18 15:52 [facility] (Rec: 04/06/18 16:28 [facility] [id number]) Self-Care/Home Management Treatment Education Patient Education Home Exercise Program Other Education keep track of walking, gradually progressing distance /time Activities Self-Care/Home Management Activities use of heat PT-OP-S Aquatic Treatment Start: 04/06/18 15:16 Freq: Status: Active Protocol: Document 04/25/18 12:30 [facility] (Rec: 04/25/18 15:14 [facility] [id number]) Aquatics Treatment Pool Entry/Exit Pool Entry/Exit Method Stairs Assistance Independent Water Walking straight leg may Comments painful fwd,bck,side,may Water Level Chest Level Lower Extremity Exercises circles Details CW and CCW Body Position Standing Reps/Duration 10x ea hip ab/ad, flex/ext Body Position Standing Water Level Chest Level Reps/Duration 10xea Lower Extremity Stretches HS Water Level [place] Reps/Duration 2 Comments wall Upper Extremity Exercises lateral pull downs w/lg buoys Water Level [place] Reps/Duration 2 x5 reps hor ab/ad, flex/ext Details DLS emphasis, rahul and unil Body Position Standing Water Level Chest Level Reps/Duration 10x ea [place] Activities [place] Activities Bicycle Bicycle Backwards Cross [place] Running Hip Abduction/Adduction Sit Kicks Other Activities pendulum ab curls SLR in corner x 10 Equipment large noodle Duration 20 min Comments cues for core stabilization and postural alignment Manual Techniques Bad Ragaz For lumbar flexibility and relaxation WATSU for muscle relaxation, pain and pain management. Aquatic Massage for decreased paraspinal muscle spasm and pain PT-OP-T Assessment and Plan Start: 04/06/18 15:16 Freq: Status: Active Protocol: Document 04/25/18 12:30 SAK (Rec: 04/25/18 15:14 [facility] [id number]) Physical Therapy Assessment Goals activity tolerance Impairment activity tolerance [facility] Goal (LTG) Patient able to tolerate 45 min aquatic exercise program without an increase in pain. Reluctant to attempt activities recommended by therapist. Tended to do what she had been doing in the past LTG Duration 2 months 4 Impairment Strength Outside Machinist Supervisor Goal (LTG) Improve strength bilateral LE' s and trunk to at least 4+/5 LTG Duration 2 months 3 Impairment ROM Outside Machinist Supervisor Goal (LTG) Improve lumbar ROM to WNL LTG Duration 2 months 2 Impairment LBP as high as 7/10 Short Term Goal (STG) Decrease LBP to no greater than 5/10 with usual activities STG Duration 1 month Outside Machinist Supervisor Goal (LTG) Decrease pain to no greater than 3/10 LTG Duration 2 months 1 Impairment Oswestry disability index score 40% Short Term Goal (STG) Decrease Oswestry disability index score to 30% STG Duration 1 month [facility] Goal (LTG) Decrease Oswestry disability index score to 20% with patient able to return to work LTG Duration 2 months Assessment Summary Assessment Patient reported decreased ability to relax in PT today possibly due to cold air. Mod cues for alignment and exercise performance. Physical Therapy Plan Frequency and Duration Frequency of Treatment 2x/Week Duration of Treatment 12 visits Plan of Care Start Date 04/06/18 Plan of Care End Date 06/04/18 Next Visit Focus/Plan Next Note Type Treatment Note Next Visit Plan Initiate intervals in deep water.
--- NOTE | 2018-04-28 08:13 | PT.OTN ---
Current Diagnoses Intervertebral disc disorders with radiculopathy, lumbar region (04/27/18) Other intervertebral disc degeneration, lumbosacral region (04/27/18) Sprain of ligaments of lumbar spine, subsequent encounter (04/27/18) Physical Therapy Treatment Note PT-OP-A Visit Information Start: 04/06/18 15:16 Freq: Status: Active Protocol: Document 04/27/18 10:15 SAK (Rec: 04/28/18 08:13 [facility] [id number]) Out-Patient Physical Therapy Visit Information Visit Information Visit Type Aquatic Treatment Note Visit Start Time 10:15 Visit Stop Time 11:00 Total Visit Minutes 45 Visit Number 5 Number of AUDITOR Visits 0 PT-OP-B Current Condition Start: 04/06/18 15:16 Freq: Status: Active Protocol: Document 04/06/18 15:52 SAK (Rec: 04/06/18 16:28 [facility] [id number]) Current Condition History of Current Condition Onset Date September 2017 Current Complaints low back pain with radicular symptoms History of Current Condition Patient reports gradual worsening of LBP starting in September 2017, no known cause. Reports during a work shift her pain gradually worsened, severe pain that night. Hasn' t been able to work since. 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 At this time patient reports employer not willing to do any accomodation of light duty, shorter shifts, etc. Prior to exacerbation of pain September 2017 patient reports she was working 4 days per week. Long history LBP, history of knee injury with resulting complex regional pain syndrome left knee. Starting accupuncture trial today through [facility]I. Previously seen by this PT for aquatic PT. Patient unable to do aquatic exercise independently due to cost. Treatment Goals Patient/Caregiver Goals Decrease pain, improve activity tolerance including ability to return to work. Prior Functional Status Baseline Function- ADL's Independent Baseline Function- Mobility Independent Baseline Function- Gait indep no device Baseline Function- Work/School working 4 days per week Baseline Function- Recreation/Hobbies minimal Current Functional Impairments (Reported) Functional Limitations- ADL's painful Functional Limitations- Mobility/Gait painful Functional Limitations- Work/School unable due to pain Functional Limitations- Recreation/ painful Hobbies Personal Factors Other Personal Factors That May Effect Patient smokes 1/2 to 1 pack Therapy/Recovery per day PT-OP-C Subjective Start: 04/06/18 15:16 Freq: Status: Active Protocol: Document 04/27/18 10:15 SAK (Rec: 04/28/18 08:13 [facility] [id number]) OP-PT Subjective Patient Comments Patient Comments Reports didn't respond as well as usual to aquatic therapy due to cold temperature of air , was unable to fully relax during manual techniques PT-OP-G Mobility & Gait Start: 04/06/18 15:16 Freq: Status: Active Protocol: Document 04/06/18 15:52 SAK (Rec: 04/06/18 16:28 [facility] [id number]) OP Gait Assessment Gait Deviations General Gait Pattern Antalgic Wide Based Gait Comments Gait Comments Increased ER bilateral LE's PT-OP-J Posture/Palpation/Skin Start: 04/06/18 15:16 Freq: Status: Active Protocol: Document 04/06/18 15:52 SAK (Rec: 04/06/18 16:28 [facility] [id number]) Posture Evaluation Position Standing Head/C-Spine Posture Forward Head T-Spine Posture Increased Kyphosis L-Spine Posture Flattened Palpation Assessment Location bilateral lumbar spine Palpation Findings Soft Tissue Tightness Muscle Guarding PT-OP-K Range of Motion Start: 04/06/18 15:16 Freq: Status: Active Protocol: Document 04/06/18 15:52 [facility] (Rec: 04/06/18 16:28 [facility] [id number]) Lumbar Spine Range of Motion Lumbar Spine Active Testing Position Standing Flexion 70 Extension 0 Rotation Left 20 Rotation Right 20 Lateral Flexion Left 10 Lateral Flexion Right 20 ROM Limitations Soft Tissue Tightness Pain Comments flexion occurs at hips, not lumbar spine Hip Goniometric Range of Motion Hip Measured in Degrees rahul Hip ROM WFL Yes Hip ROM Limitations Comments patient hypermobile Knee Goniometric Range of Motion Knee Measured in Degrees rahul Knee ROM WFL Yes Ankle and Foot Goniometric Range of Motion Ankle and Foot Measured in Degrees rahul Ankle/Foot ROM WFL Yes PT-OP-L Special Tests Start: 04/06/18 15:16 Freq: Status: Active Protocol: Document 04/06/18 15:52 [facility] (Rec: 04/06/18 16:28 [facility] [id number]) Special Tests Lumbar Spine Special Tests Prone Press Up Test Results unable Straight Leg Raise Test Results positive rahul Neural Special Tests- Lower Body Sciatic Nerve Tension Test Results positive rahul PT-OP-M Strength Start: 04/06/18 15:16 Freq: Status: Active Protocol: Document 04/06/18 15:52 [facility] (Rec: 04/06/18 16:28 [facility] [id number]) Trunk Strength Trunk Manual Muscle Testing Core Stabilization fair Reason Not Measured Pain Hip Strength Hip Manual Muscle Testing Left Flexion (L2) 4- Good- Abduction 4- Good- External Rotation 4- Good- Internal Rotation 4 Good Comments back pain with all resisted motions Right Flexion (L2) 4 Good Abduction 4 Good External Rotation 4- Good- Internal Rotation 4- Good- Comments back pain with all resisted motions Knee Strength Knee Manual Muscle Testing Left Flexion (S2) 4- Good- Extension (L3) 4 Good Comments painful Right Flexion (S2) 4+ Good+ Extension (L3) 4+ Good+ Ankle/Foot Strength Ankle and Foot Manual Muscle Testing Left Dorsiflexion (L4) 4+ Good+ Plantarflexion (S1) 4+ Good+ Right Dorsiflexion (L4) 4+ Good+ Plantarflexion (S1) 4+ Good+ Toe Strength Toe Manual Muscle Testing Left Great Toe Flexion 4+ Good+ Extension 4+ Good+ Right Great Toe Flexion 4+ Good+ Extension 4+ Good+ PT-OP-Q Treatments Start: 04/06/18 15:16 Freq: Status: Active Protocol: Document 04/06/18 15:52 [facility] (Rec: 04/06/18 16:28 [facility] [id number]) Self-Care/Home Management Treatment Education Patient Education Home Exercise Program Other Education keep track of walking, gradually progressing distance /time Activities Self-Care/Home Management Activities use of heat PT-OP-S Aquatic Treatment Start: 04/06/18 15:16 Freq: Status: Active Protocol: Document 04/27/18 10:15 [facility] (Rec: 04/28/18 08:13 [facility] [id number]) Aquatics Treatment Pool Entry/Exit Pool Entry/Exit Method Stairs Assistance Independent Water Walking straight leg may Comments painful fwd,bck,side,may Water Level Chest Level Lower Extremity Exercises circles Details CW and CCW Body Position Standing Reps/Duration 10x ea hip ab/ad, flex/ext Body Position Standing Water Level Chest Level Reps/Duration 10xea Lower Extremity Stretches HS Water Level [place] Reps/Duration 2 Comments wall Upper Extremity Exercises lateral pull downs w/lg buoys Water Level [place] Reps/Duration 2 x5 reps hor ab/ad, flex/ext Details DLS emphasis, rahul and unil Body Position Standing Water Level Chest Level Reps/Duration 10x ea [place] Activities [place] Activities Bicycle Bicycle Backwards [place] Running Hip Abduction/Adduction Sit Kicks Other Activities pendulum ab curls SLR in corner x 10 Equipment large noodle, resistance fins Duration 20 min Comments Added 5 rounds 30:30 intervals. cues for core stabilization and postural alignment Manual Techniques Bad Ragaz For lumbar flexibility and relaxation WATSU for muscle relaxation, pain and pain management. Aquatic Massage for decreased paraspinal muscle spasm and pain PT-OP-T Assessment and Plan Start: 04/06/18 15:16 Freq: Status: Active Protocol: Document 04/27/18 10:15 [facility] (Rec: 04/28/18 08:13 [facility] [id number]) Physical Therapy Assessment Goals activity tolerance Impairment activity tolerance Compressed Gas Equipment Mechanic Goal (LTG) Patient able to tolerate 45 min aquatic exercise program without an increase in pain. Reluctant to attempt activities recommended by therapist. Tended to do what she had been doing in the past LTG Duration 2 months 4 Impairment Strength [facility] Goal (LTG) Improve strength bilateral LE' s and trunk to at least 4+/5 LTG Duration 2 months 3 Impairment ROM [facility] Goal (LTG) Improve lumbar ROM to WNL LTG Duration 2 months 2 Impairment LBP as high as 7/10 Short Term Goal (STG) Decrease LBP to no greater than 5/10 with usual activities STG Duration 1 month [employer] Equipment Mechanic Goal (LTG) Decrease pain to no greater than 3/10 LTG Duration 2 months 1 Impairment Oswestry disability index score 40% Short Term Goal (STG) Decrease Oswestry disability index score to 30% STG Duration 1 month [employer]ressed [employer] Equipment Mechanic Goal (LTG) Decrease Oswestry disability index score to 20% with patient able to return to work LTG Duration 2 months Assessment Summary Assessment Better tolerance today. Added 5 rounds of intervals in deep water today as well as small resistance fins to deep water activity with good tolerance. Physical Therapy Plan Frequency and Duration Frequency of Treatment 2x/Week Duration of Treatment 12 visits Plan of Care Start Date 04/06/18 Plan of Care End Date 06/04/18 Next Visit Focus/Plan Next Note Type Treatment Note Next Visit Plan Progress intervals as tolerated.
--- NOTE | 2018-05-11 15:14 | PT.OTN ---
Current Diagnoses Intervertebral disc disorders with radiculopathy, lumbar region (05/11/18) Other intervertebral disc degeneration, lumbosacral region (05/11/18) Sprain of ligaments of lumbar spine, subsequent encounter (05/11/18) Physical Therapy Treatment Note PT-OP-A Visit Information Start: 04/06/18 15:16 Freq: Status: Active Protocol: Document 05/11/18 15:10 SAK (Rec: 05/11/18 15:14 SAK [id number]) Out-Patient Physical Therapy Visit Information Visit Information Visit Type Treatment Note Visit Start Time 11:00 Visit Stop Time 11:45 Total Visit Minutes 45 Visit Number 6 Number of DIRECTOR OF EVENTS Visits 0 PT-OP-B Current Condition Start: 04/06/18 15:16 Freq: Status: Active Protocol: Document 04/06/18 15:52 SAK (Rec: 04/06/18 16:28 SAK [id number]) Current Condition History of Current Condition Onset Date September 2017 Current Complaints low back pain with radicular symptoms History of Current Condition Patient reports gradual worsening of LBP starting in September 2017, no known cause. Reports during a work shift her pain gradually worsened, severe pain that night. Hasn' t been able to work since. 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 At this time patient reports employer not willing to do any accomodation of light duty, shorter shifts, etc. Prior to exacerbation of pain September 2017 patient reports she was working 4 days per week. Long history LBP, history of knee injury with resulting complex regional pain syndrome left knee. Starting accupuncture trial today through [facility]&I. Previously seen by this PT for aquatic PT. Patient unable to do aquatic exercise independently due to cost. Treatment Goals Patient/Caregiver Goals Decrease pain, improve activity tolerance including ability to return to work. Prior Functional Status Baseline Function- ADL's Independent Baseline Function- Mobility Independent Baseline Function- Gait indep no device Baseline Function- Work/School working 4 days per week Baseline Function- Recreation/Hobbies minimal Current Functional Impairments (Reported) Functional Limitations- ADL's painful Functional Limitations- Mobility/Gait painful Functional Limitations- Work/School unable due to pain Functional Limitations- Recreation/ painful Hobbies Personal Factors Other Personal Factors That May Effect Patient smokes 1/2 to 1 pack Therapy/Recovery per day PT-OP-C Subjective Start: 04/06/18 15:16 Freq: Status: Active Protocol: Document 05/11/18 15:10 SAK (Rec: 05/11/18 15:14 [facility] [id number]) OP-PT Subjective Patient Comments Patient Comments Cancelled last visit due to snow. Has seen accupuncturist again with good response, less pain. PT-OP-G Mobility & Gait Start: 04/06/18 15:16 Freq: Status: Active Protocol: Document 04/06/18 15:52 SAK (Rec: 04/06/18 16:28 [facility] [id number]) OP Gait Assessment Gait Deviations General Gait Pattern Antalgic Wide Based Gait Comments Gait Comments Increased ER bilateral LE's PT-OP-J Posture/Palpation/Skin Start: 04/06/18 15:16 Freq: Status: Active Protocol: Document 04/06/18 15:52 [facility] (Rec: 04/06/18 16:28 [facility] [id number]) Posture Evaluation Position Standing Head/C-Spine Posture Forward Head T-Spine Posture Increased Kyphosis L-Spine Posture Flattened Palpation Assessment Location bilateral lumbar spine Palpation Findings Soft Tissue Tightness Muscle Guarding PT-OP-K Range of Motion Start: 04/06/18 15:16 Freq: Status: Active Protocol: Document 04/06/18 15:52 [facility] (Rec: 04/06/18 16:28 [facility] [id number]) Lumbar Spine Range of Motion Lumbar Spine Active Testing Position Standing Flexion 70 Extension 0 Rotation Left 20 Rotation Right 20 Lateral Flexion Left 10 Lateral Flexion Right 20 ROM Limitations Soft Tissue Tightness Pain Comments flexion occurs at hips, not lumbar spine Hip Goniometric Range of Motion Hip Measured in Degrees rahul Hip ROM WFL Yes Hip ROM Limitations Comments patient hypermobile Knee Goniometric Range of Motion Knee Measured in Degrees rahul Knee ROM WFL Yes Ankle and Foot Goniometric Range of Motion Ankle and Foot Measured in Degrees rahul Ankle/Foot ROM WFL Yes PT-OP-L Special Tests Start: 04/06/18 15:16 Freq: Status: Active Protocol: Document 04/06/18 15:52 [facility] (Rec: 04/06/18 16:28 [facility] [id number]) Special Tests Lumbar Spine Special Tests Prone Press Up Test Results unable Straight Leg Raise Test Results positive rahul Neural Special Tests- Lower Body Sciatic Nerve Tension Test Results positive rahul PT-OP-M Strength Start: 04/06/18 15:16 Freq: Status: Active Protocol: Document 04/06/18 15:52 [facility] (Rec: 04/06/18 16:28 [facility] [id number]) Trunk Strength Trunk Manual Muscle Testing Core Stabilization fair Reason Not Measured Pain Hip Strength Hip Manual Muscle Testing Left Flexion (L2) 4- Good- Abduction 4- Good- External Rotation 4- Good- Internal Rotation 4 Good Comments back pain with all resisted motions Right Flexion (L2) 4 Good Abduction 4 Good External Rotation 4- Good- Internal Rotation 4- Good- Comments back pain with all resisted motions Knee Strength Knee Manual Muscle Testing Left Flexion (S2) 4- Good- Extension (L3) 4 Good Comments painful Right Flexion (S2) 4+ Good+ Extension (L3) 4+ Good+ Ankle/Foot Strength Ankle and Foot Manual Muscle Testing Left Dorsiflexion (L4) 4+ Good+ Plantarflexion (S1) 4+ Good+ Right Dorsiflexion (L4) 4+ Good+ Plantarflexion (S1) 4+ Good+ Toe Strength Toe Manual Muscle Testing Left Great Toe Flexion 4+ Good+ Extension 4+ Good+ Right Great Toe Flexion 4+ Good+ Extension 4+ Good+ PT-OP-Q Treatments Start: 04/06/18 15:16 Freq: Status: Active Protocol: Document 04/06/18 15:52 [facility] (Rec: 04/06/18 16:28 [facility] [id number]) Self-Care/Home Management Treatment Education Patient Education Home Exercise Program Other Education keep track of walking, gradually progressing distance /time Activities Self-Care/Home Management Activities use of heat PT-OP-S Aquatic Treatment Start: 04/06/18 15:16 Freq: Status: Active Protocol: Document 05/11/18 15:10 [facility] (Rec: 05/11/18 15:14 [facility] [id number]) Aquatics Treatment Pool Entry/Exit Pool Entry/Exit Method Stairs Assistance Independent Water Walking straight leg may Comments painful fwd,bck,side,may Water Level Chest Level Lower Extremity Exercises circles Details CW and CCW Body Position Standing Reps/Duration 10x ea hip ab/ad, flex/ext Body Position Standing Water Level Chest Level Reps/Duration 10xea Lower Extremity Stretches HS Water Level [place] Reps/Duration 2 Comments wall Upper Extremity Exercises lateral pull downs w/lg buoys Water Level [place] Reps/Duration 2 x5 reps hor ab/ad, flex/ext Details DLS emphasis, rahul and unil Body Position Standing Water Level Chest Level Reps/Duration 10x ea [place] Activities [place] Activities Bicycle Bicycle Backwards [place] Running Hip Abduction/Adduction Sit Kicks Other Activities pendulum ab curls Equipment large noodle Duration 20 min Comments 11 rounds 30:30 intervals. cues for core stabilization and postural alignment Manual Techniques Bad Ragaz Active isometrics for core strengthening Passive for lumbar flexibility and relaxation Aquatic Massage for decreased paraspinal muscle spasm and pain PT-OP-T Assessment and Plan Start: 04/06/18 15:16 Freq: Status: Active Protocol: Document 05/11/18 15:10 [facility] (Rec: 05/11/18 15:14 [facility] [id number]) Physical Therapy Assessment Goals activity tolerance Impairment activity tolerance Nursery Nurse Goal (LTG) Patient able to tolerate 45 min aquatic exercise program without an increase in pain. Reluctant to attempt activities recommended by therapist. Tended to do what she had been doing in the past LTG Duration 2 months 4 Impairment Strength Nursery Nurse Goal (LTG) Improve strength bilateral LE' s and trunk to at least 4+/5 LTG Duration 2 months 3 Impairment ROM Nursery Nurse Goal (LTG) Improve lumbar ROM to WNL LTG Duration 2 months 2 Impairment LBP as high as 7/10 Short Term Goal (STG) Decrease LBP to no greater than 5/10 with usual activities STG Duration 1 month [facility] Goal (LTG) Decrease pain to no greater than 3/10 LTG Duration 2 months 1 Impairment Oswestry disability index score 40% Short Term Goal (STG) Decrease Oswestry disability index score to 30% STG Duration 1 month [facility] Goal (LTG) Decrease Oswestry disability index score to 20% with patient able to return to work LTG Duration 2 months Assessment Summary Assessment Tolerated progression of exercises well today, decreased pain with accupuncture. Physical Therapy Plan Frequency and Duration Frequency of Treatment 2x/Week Duration of Treatment 12 visits Plan of Care Start Date 04/06/18 Plan of Care End Date 06/04/18 Next Visit Focus/Plan Next Note Type Treatment Note Next Visit Plan Continue to progress ther ex and Bad Ragaz ex.
--- NOTE | 2018-05-16 17:13 | PT.OTN ---
Current Diagnoses Intervertebral disc disorders with radiculopathy, lumbar region (05/16/18) Other intervertebral disc degeneration, lumbosacral region (05/16/18) Sprain of ligaments of lumbar spine, subsequent encounter (05/16/18) Physical Therapy Treatment Note PT-OP-A Visit Information Start: 04/06/18 15:16 Freq: Status: Active Protocol: Document 05/16/18 17:08 SAK (Rec: 05/16/18 17:13 SAK [id number]) Out-Patient Physical Therapy Visit Information Visit Information Visit Type Aquatic Treatment Note Visit Start Time 11:00 Visit Stop Time 11:45 Total Visit Minutes 45 Visit Number 7 Number of INVESTMENT OFFICER Visits 0 PT-OP-B Current Condition Start: 04/06/18 15:16 Freq: Status: Active Protocol: Document 04/06/18 15:52 SAK (Rec: 04/06/18 16:28 SAK [id number]) Current Condition History of Current Condition Onset Date September 2017 Current Complaints low back pain with radicular symptoms History of Current Condition Patient reports gradual worsening of LBP starting in September 2017, no known cause. Reports during a work shift her pain gradually worsened, severe pain that night. Hasn' t been able to work since. 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 At this time patient reports employer not willing to do any accomodation of light duty, shorter shifts, etc. Prior to exacerbation of pain September 2017 patient reports she was working 4 days per week. Long history LBP, history of knee injury with resulting complex regional pain syndrome left knee. Starting accupuncture trial today through [facility]. Previously seen by this PT for aquatic PT. Patient unable to do aquatic exercise independently due to cost. Treatment Goals Patient/Caregiver Goals Decrease pain, improve activity tolerance including ability to return to work. Prior Functional Status Baseline Function- ADL's Independent Baseline Function- Mobility Independent Baseline Function- Gait indep no device Baseline Function- Work/School working 4 days per week Baseline Function- Recreation/Hobbies minimal Current Functional Impairments (Reported) Functional Limitations- ADL's painful Functional Limitations- Mobility/Gait painful Functional Limitations- Work/School unable due to pain Functional Limitations- Recreation/ painful Hobbies Personal Factors Other Personal Factors That May Effect Patient smokes 1/2 to 1 pack Therapy/Recovery per day PT-OP-C Subjective Start: 04/06/18 15:16 Freq: Status: Active Protocol: Document 05/16/18 17:08 [facility] (Rec: 05/16/18 17:13 [facility] [id number]) OP-PT Subjective Patient Comments Patient Comments Reports some muscle soreness after last session with addition of intervals but no increase in pain. PT-OP-G Mobility & Gait Start: 04/06/18 15:16 Freq: Status: Active Protocol: Document 04/06/18 15:52 [facility] (Rec: 04/06/18 16:28 [facility] [id number]) OP Gait Assessment Gait Deviations General Gait Pattern Antalgic Wide Based Gait Comments Gait Comments Increased ER bilateral LE's PT-OP-J Posture/Palpation/Skin Start: 04/06/18 15:16 Freq: Status: Active Protocol: Document 04/06/18 15:52 [facility] (Rec: 04/06/18 16:28 [facility] [id number]) Posture Evaluation Position Standing Head/C-Spine Posture Forward Head T-Spine Posture Increased Kyphosis L-Spine Posture Flattened Palpation Assessment Location bilateral lumbar spine Palpation Findings Soft Tissue Tightness Muscle Guarding PT-OP-K Range of Motion Start: 04/06/18 15:16 Freq: Status: Active Protocol: Document 04/06/18 15:52 [facility] (Rec: 04/06/18 16:28 [facility] [id number]) Lumbar Spine Range of Motion Lumbar Spine Active Testing Position Standing Flexion 70 Extension 0 Rotation Left 20 Rotation Right 20 Lateral Flexion Left 10 Lateral Flexion Right 20 ROM Limitations Soft Tissue Tightness Pain Comments flexion occurs at hips, not lumbar spine Hip Goniometric Range of Motion Hip Measured in Degrees rahul Hip ROM WFL Yes Hip ROM Limitations Comments patient hypermobile Knee Goniometric Range of Motion Knee Measured in Degrees rahul Knee ROM WFL Yes Ankle and Foot Goniometric Range of Motion Ankle and Foot Measured in Degrees rahul Ankle/Foot ROM WFL Yes PT-OP-L Special Tests Start: 04/06/18 15:16 Freq: Status: Active Protocol: Document 04/06/18 15:52 [facility] (Rec: 04/06/18 16:28 [facility] [id number]) Special Tests Lumbar Spine Special Tests Prone Press Up Test Results unable Straight Leg Raise Test Results positive rahul Neural Special Tests- Lower Body Sciatic Nerve Tension Test Results positive rahul PT-OP-M Strength Start: 04/06/18 15:16 Freq: Status: Active Protocol: Document 04/06/18 15:52 [facility] (Rec: 04/06/18 16:28 [facility] [id number]) Trunk Strength Trunk Manual Muscle Testing Core Stabilization fair Reason Not Measured Pain Hip Strength Hip Manual Muscle Testing Left Flexion (L2) 4- Good- Abduction 4- Good- External Rotation 4- Good- Internal Rotation 4 Good Comments back pain with all resisted motions Right Flexion (L2) 4 Good Abduction 4 Good External Rotation 4- Good- Internal Rotation 4- Good- Comments back pain with all resisted motions Knee Strength Knee Manual Muscle Testing Left Flexion (S2) 4- Good- Extension (L3) 4 Good Comments painful Right Flexion (S2) 4+ Good+ Extension (L3) 4+ Good+ Ankle/Foot Strength Ankle and Foot Manual Muscle Testing Left Dorsiflexion (L4) 4+ Good+ Plantarflexion (S1) 4+ Good+ Right Dorsiflexion (L4) 4+ Good+ Plantarflexion (S1) 4+ Good+ Toe Strength Toe Manual Muscle Testing Left Great Toe Flexion 4+ Good+ Extension 4+ Good+ Right Great Toe Flexion 4+ Good+ Extension 4+ Good+ PT-OP-Q Treatments Start: 04/06/18 15:16 Freq: Status: Active Protocol: Document 04/06/18 15:52 [facility] (Rec: 04/06/18 16:28 [facility] [id number]) Self-Care/Home Management Treatment Education Patient Education Home Exercise Program Other Education keep track of walking, gradually progressing distance /time Activities Self-Care/Home Management Activities use of heat PT-OP-S Aquatic Treatment Start: 04/06/18 15:16 Freq: Status: Active Protocol: Document 05/16/18 17:08 [facility] (Rec: 05/16/18 17:13 [facility] [id number]) Aquatics Treatment Pool Entry/Exit Pool Entry/Exit Method Stairs Assistance Independent Water Walking straight leg may Comments painful fwd,bck,side,may Water Level Chest Level Lower Extremity Exercises circles Details CW and CCW Body Position Standing Reps/Duration 10x ea hip ab/ad, flex/ext Body Position Standing Water Level Chest Level Reps/Duration 10xea Lower Extremity Stretches HS Water Level [place] Reps/Duration 2 Comments wall Upper Extremity Exercises lateral pull downs w/lg buoys Water Level [place] Reps/Duration 2 x5 reps hor ab/ad, flex/ext Details DLS emphasis, rahul and unil Body Position Standing Water Level Chest Level Reps/Duration 10x ea [place] Activities [place] Activities Bicycle Bicycle Backwards [place] Running Hip Abduction/Adduction Sit Kicks Other Activities pendulum ab curls Equipment large noodle Duration 20 min Comments 11 rounds 30:30 intervals. cues for core stabilization and postural alignment Manual Techniques Bad Ragaz Active isometrics for core strengthening Passive for lumbar flexibility and relaxation Aquatic Massage for decreased paraspinal muscle spasm and pain PT-OP-T Assessment and Plan Start: 04/06/18 15:16 Freq: Status: Active Protocol: Document 05/16/18 17:08 [facility] (Rec: 05/16/18 17:13 [facility] [id number]) Physical Therapy Assessment Goals activity tolerance Impairment activity tolerance [facility] Goal (LTG) Patient able to tolerate 45 min aquatic exercise program without an increase in pain. Reluctant to attempt activities recommended by therapist. Tended to do what she had been doing in the past LTG Duration 2 months 4 Impairment Strength Gravel Machine Operator Goal (LTG) Improve strength bilateral LE' s and trunk to at least 4+/5 LTG Duration 2 months 3 Impairment ROM [facility] Goal (LTG) Improve lumbar ROM to WNL LTG Duration 2 months 2 Impairment LBP as high as 7/10 Short Term Goal (STG) Decrease LBP to no greater than 5/10 with usual activities STG Duration 1 month [facility] Goal (LTG) Decrease pain to no greater than 3/10 LTG Duration 2 months 1 Impairment Oswestry disability index score 40% Short Term Goal (STG) Decrease Oswestry disability index score to 30% STG Duration 1 month [facility] Goal (LTG) Decrease Oswestry disability index score to 20% with patient able to return to work LTG Duration 2 months Assessment Summary Assessment Good tolerance for increasing intensity of aquatic exercise. Physical Therapy Plan Frequency and Duration Frequency of Treatment 2x/Week Duration of Treatment 12 visits Plan of Care Start Date 04/06/18 Plan of Care End Date 06/04/18 Next Visit Focus/Plan Next Note Type Treatment Note Next Visit Plan Continue to progress ther ex and Bad Ragaz ex.
--- NOTE | 2018-05-25 14:37 | PT.OTN ---
Current Diagnoses Intervertebral disc disorders with radiculopathy, lumbar region (05/25/18) Other intervertebral disc degeneration, lumbosacral region (05/25/18) Sprain of ligaments of lumbar spine, subsequent encounter (05/25/18) Physical Therapy Treatment Note PT-OP-A Visit Information Start: 04/06/18 15:16 Freq: Status: Active Protocol: Document 05/20/18 12:30 LJ (Rec: 05/25/18 14:37 LJ [id number]) Out-Patient Physical Therapy Visit Information Visit Information Visit Type Aquatic Treatment Note Visit Start Time 12:30 Visit Stop Time 13:15 Total Visit Minutes 45 Visit Number 8 Number of CATERING ASSOCIATE Visits 1 PT-OP-B Current Condition Start: 04/06/18 15:16 Freq: Status: Active Protocol: Document 04/06/18 15:52 SAK (Rec: 04/06/18 16:28 SAK [id number]) Current Condition History of Current Condition Onset Date September 2017 Current Complaints low back pain with radicular symptoms History of Current Condition Patient reports gradual worsening of LBP starting in September 2017, no known cause. Reports during a work shift her pain gradually worsened, severe pain that night. Hasn' t been able to work since. 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 At this time patient reports employer not willing to do any accomodation of light duty, shorter shifts, etc. Prior to exacerbation of pain September 2017 patient reports she was working 4 days per week. Long history LBP, history of knee injury with resulting complex regional pain syndrome left knee. Starting accupuncture trial today through L&I. Previously seen by this PT for aquatic PT. Patient unable to do aquatic exercise independently due to cost. Treatment Goals Patient/Caregiver Goals Decrease pain, improve activity tolerance including ability to return to work. Prior Functional Status Baseline Function- ADL's Independent Baseline Function- Mobility Independent Baseline Function- Gait indep no device Baseline Function- Work/School working 4 days per week Baseline Function- Recreation/Hobbies minimal Current Functional Impairments (Reported) Functional Limitations- ADL's painful Functional Limitations- Mobility/Gait painful Functional Limitations- Work/School unable due to pain Functional Limitations- Recreation/ painful Hobbies Personal Factors Other Personal Factors That May Effect Patient smokes 1/2 to 1 pack Therapy/Recovery per day PT-OP-C Subjective Start: 04/06/18 15:16 Freq: Status: Active Protocol: Document 05/20/18 12:30 LJ (Rec: 05/25/18 14:37 LJ [id number]) OP-PT Subjective Patient Comments Patient Comments Pt reports she is having pain in L knee due to an issue which has been going on for years. PT-OP-G Mobility & Gait Start: 04/06/18 15:16 Freq: Status: Active Protocol: Document 04/06/18 15:52 SAK (Rec: 04/06/18 16:28 SAK [id number]) OP Gait Assessment Gait Deviations General Gait Pattern Antalgic Wide Based Gait Comments Gait Comments Increased ER bilateral LE's PT-OP-J Posture/Palpation/Skin Start: 04/06/18 15:16 Freq: Status: Active Protocol: Document 04/06/18 15:52 SAK (Rec: 04/06/18 16:28 SAK [id number]) Posture Evaluation Position Standing Head/C-Spine Posture Forward Head T-Spine Posture Increased Kyphosis L-Spine Posture Flattened Palpation Assessment Location bilateral lumbar spine Palpation Findings Soft Tissue Tightness Muscle Guarding PT-OP-K Range of Motion Start: 04/06/18 15:16 Freq: Status: Active Protocol: Document 04/06/18 15:52 SAK (Rec: 04/06/18 16:28 SAK [id number]) Lumbar Spine Range of Motion Lumbar Spine Active Testing Position Standing Flexion 70 Extension 0 Rotation Left 20 Rotation Right 20 Lateral Flexion Left 10 Lateral Flexion Right 20 ROM Limitations Soft Tissue Tightness Pain Comments flexion occurs at hips, not lumbar spine Hip Goniometric Range of Motion Hip Measured in Degrees rahul Hip ROM WFL Yes Hip ROM Limitations Comments patient hypermobile Knee Goniometric Range of Motion Knee Measured in Degrees rahul Knee ROM WFL Yes Ankle and Foot Goniometric Range of Motion Ankle and Foot Measured in Degrees arhul Ankle/Foot ROM WFL Yes PT-OP-L Special Tests Start: 04/06/18 15:16 Freq: Status: Active Protocol: Document 04/06/18 15:52 SAK (Rec: 04/06/18 16:28 SAK [id number]) Special Tests Lumbar Spine Special Tests Prone Press Up Test Results unable Straight Leg Raise Test Results positive rahul Neural Special Tests- Lower Body Sciatic Nerve Tension Test Results positive rahul PT-OP-M Strength Start: 04/06/18 15:16 Freq: Status: Active Protocol: Document 04/06/18 15:52 SAK (Rec: 04/06/18 16:28 [facility] [id number]) Trunk Strength Trunk Manual Muscle Testing Core Stabilization fair Reason Not Measured Pain Hip Strength Hip Manual Muscle Testing Left Flexion (L2) 4- Good- Abduction 4- Good- External Rotation 4- Good- Internal Rotation 4 Good Comments back pain with all resisted motions Right Flexion (L2) 4 Good Abduction 4 Good External Rotation 4- Good- Internal Rotation 4- Good- Comments back pain with all resisted motions Knee Strength Knee Manual Muscle Testing Left Flexion (S2) 4- Good- Extension (L3) 4 Good Comments painful Right Flexion (S2) 4+ Good+ Extension (L3) 4+ Good+ Ankle/Foot Strength Ankle and Foot Manual Muscle Testing Left Dorsiflexion (L4) 4+ Good+ Plantarflexion (S1) 4+ Good+ Right Dorsiflexion (L4) 4+ Good+ Plantarflexion (S1) 4+ Good+ Toe Strength Toe Manual Muscle Testing Left Great Toe Flexion 4+ Good+ Extension 4+ Good+ Right Great Toe Flexion 4+ Good+ Extension 4+ Good+ PT-OP-Q Treatments Start: 04/06/18 15:16 Freq: Status: Active Protocol: Document 04/06/18 15:52 [facility] (Rec: 04/06/18 16:28 [facility] [id number]) Self-Care/Home Management Treatment Education Patient Education Home Exercise Program Other Education keep track of walking, gradually progressing distance /time Activities Self-Care/Home Management Activities use of heat PT-OP-S Aquatic Treatment Start: 04/06/18 15:16 Freq: Status: Active Protocol: Document 05/20/18 12:30 LJ (Rec: 05/25/18 14:37 LJ [id number]) Aquatics Treatment Pool Entry/Exit Pool Entry/Exit Method Stairs Assistance Independent Water Walking straight leg may Comments painful fwd,bck,side,may Water Level Chest Level Lower Extremity Exercises circles Details CW and CCW Body Position Standing Reps/Duration 10x ea hip ab/ad, flex/ext Body Position Standing Water Level Chest Level Reps/Duration 10xea Lower Extremity Stretches HS Water Level [place]ace Reps/Duration 2 Comments wall Upper Extremity Exercises lateral pull downs w/lg buoys Water Level [place]ace Reps/Duration 2 x5 reps hor ab/ad, flex/ext Details DLS emphasis, rahul and unil Body Position Standing Water Level Chest Level Reps/Duration 10x ea Pace Activities Pace Activities Bicycle Bicycle Backwards [place] Running Hip Abduction/Adduction Sit Kicks Other Activities pendulum ab curls Equipment large noodle Duration 20 min Comments 8 rounds 30:30 intervals. cues for core stabilization and postural alignment Manual Techniques Aquatic Manual Traction 10 min using lg blue float, neck float, and #2.5 on ankles PT-OP-T Assessment and Plan Start: 04/06/18 15:16 Freq: Status: Active Protocol: Document 05/20/18 12:30 LJ (Rec: 05/25/18 14:37 LJ [email or web address]) Physical Therapy Assessment Goals activity tolerance Impairment activity tolerance [place] Goal (LTG) Patient able to tolerate 45 min aquatic exercise program without an increase in pain. Reluctant to attempt activities recommended by therapist. Tended to do what she had been doing in the past LTG Duration 2 months 4 Impairment Strength [place] Goal (LTG) Improve strength bilateral LE' s and trunk to at least 4+/5 LTG Duration 2 months 3 Impairment ROM [place] Goal (LTG) Improve lumbar ROM to WNL LTG Duration 2 months 2 Impairment LBP as high as 7/10 Short Term Goal (STG) Decrease LBP to no greater than 5/10 with usual activities STG Duration 1 month [employer] Goal (LTG) Decrease pain to no greater than 3/10 LTG Duration 2 months 1 Impairment Oswestry disability index score 40% Short Term Goal (STG) Decrease Oswestry disability index score to 30% STG Duration 1 month [employer]cher Goal (LTG) Decrease Oswestry disability index score to 20% with patient able to return to work LTG Duration 2 months Assessment Summary Assessment Pt is self-directed with aquatic therapy. Uninterestedin deviating from exercises she always performs in the pool. Physical Therapy Plan Next Visit Focus/Plan Next Visit Plan Continue to progress ther ex and Bad Ragaz ex.
--- NOTE | 2018-05-25 16:37 | PT.OTN ---
Current Diagnoses Intervertebral disc disorders with radiculopathy, lumbar region (05/25/18) Other intervertebral disc degeneration, lumbosacral region (05/25/18) Sprain of ligaments of lumbar spine, subsequent encounter (05/25/18) Physical Therapy Treatment Note PT-OP-A Visit Information Start: 04/06/18 15:16 Freq: Status: Active Protocol: Document 05/25/18 11:00 SAK (Rec: 05/25/18 16:37 SAK [id number]) Out-Patient Physical Therapy Visit Information Visit Information Visit Type Aquatic Treatment Note Visit Start Time 11:00 Visit Stop Time 12:30 Total Visit Minutes 45 Visit Number 9 Number of TRAFFIC I MANAGER Visits 1 PT-OP-B Current Condition Start: 04/06/18 15:16 Freq: Status: Active Protocol: Document 04/06/18 15:52 SAK (Rec: 04/06/18 16:28 SAK [id number]) Current Condition History of Current Condition Onset Date September 2017 Current Complaints low back pain with radicular symptoms History of Current Condition Patient reports gradual worsening of LBP starting in September 2017, no known cause. Reports during a work shift her pain gradually worsened, severe pain that night. Hasn' t been able to work since. 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 At this time patient reports employer not willing to do any accomodation of light duty, shorter shifts, etc. Prior to exacerbation of pain September 2017 patient reports she was working 4 days per week. Long history LBP, history of knee injury with resulting complex regional pain syndrome left knee. Starting accupuncture trial today through L&I. Previously seen by this PT for aquatic PT. Patient unable to do aquatic exercise independently due to cost. Treatment Goals Patient/Caregiver Goals Decrease pain, improve activity tolerance including ability to return to work. Prior Functional Status Baseline Function- ADL's Independent Baseline Function- Mobility Independent Baseline Function- Gait indep no device Baseline Function- Work/School working 4 days per week Baseline Function- Recreation/Hobbies minimal Current Functional Impairments (Reported) Functional Limitations- ADL's painful Functional Limitations- Mobility/Gait painful Functional Limitations- Work/School unable due to pain Functional Limitations- Recreation/ painful Hobbies Personal Factors Other Personal Factors That May Effect Patient smokes 1/2 to 1 pack Therapy/Recovery per day PT-OP-C Subjective Start: 04/06/18 15:16 Freq: Status: Active Protocol: Document 05/25/18 11:00 SAK (Rec: 05/25/18 16:37 [facility] [id number]) OP-PT Subjective Patient Comments Patient Comments Reports didn't tolerate cooler water of pool last session. Poor sleep last night. PT-OP-G Mobility & Gait Start: 04/06/18 15:16 Freq: Status: Active Protocol: Document 04/06/18 15:52 SAK (Rec: 04/06/18 16:28 [facility] [id number]) OP Gait Assessment Gait Deviations General Gait Pattern Antalgic Wide Based Gait Comments Gait Comments Increased ER bilateral LE's PT-OP-J Posture/Palpation/Skin Start: 04/06/18 15:16 Freq: Status: Active Protocol: Document 04/06/18 15:52 [facility] (Rec: 04/06/18 16:28 [facility] [id number]) Posture Evaluation Position Standing Head/C-Spine Posture Forward Head T-Spine Posture Increased Kyphosis L-Spine Posture Flattened Palpation Assessment Location bilateral lumbar spine Palpation Findings Soft Tissue Tightness Muscle Guarding PT-OP-K Range of Motion Start: 04/06/18 15:16 Freq: Status: Active Protocol: Document 04/06/18 15:52 [facility] (Rec: 04/06/18 16:28 [facility] [id number]) Lumbar Spine Range of Motion Lumbar Spine Active Testing Position Standing Flexion 70 Extension 0 Rotation Left 20 Rotation Right 20 Lateral Flexion Left 10 Lateral Flexion Right 20 ROM Limitations Soft Tissue Tightness Pain Comments flexion occurs at hips, not lumbar spine Hip Goniometric Range of Motion Hip Measured in Degrees rahul Hip ROM WFL Yes Hip ROM Limitations Comments patient hypermobile Knee Goniometric Range of Motion Knee Measured in Degrees rahul Knee ROM WFL Yes Ankle and Foot Goniometric Range of Motion Ankle and Foot Measured in Degrees rahul Ankle/Foot ROM WFL Yes PT-OP-L Special Tests Start: 04/06/18 15:16 Freq: Status: Active Protocol: Document 04/06/18 15:52 [facility] (Rec: 04/06/18 16:28 [facility] [id number]) Special Tests Lumbar Spine Special Tests Prone Press Up Test Results unable Straight Leg Raise Test Results positive rahul Neural Special Tests- Lower Body Sciatic Nerve Tension Test Results positive rahul PT-OP-M Strength Start: 04/06/18 15:16 Freq: Status: Active Protocol: Document 04/06/18 15:52 [facility] (Rec: 04/06/18 16:28 [facility] [id number]) Trunk Strength Trunk Manual Muscle Testing Core Stabilization fair Reason Not Measured Pain Hip Strength Hip Manual Muscle Testing Left Flexion (L2) 4- Good- Abduction 4- Good- External Rotation 4- Good- Internal Rotation 4 Good Comments back pain with all resisted motions Right Flexion (L2) 4 Good Abduction 4 Good External Rotation 4- Good- Internal Rotation 4- Good- Comments back pain with all resisted motions Knee Strength Knee Manual Muscle Testing Left Flexion (S2) 4- Good- Extension (L3) 4 Good Comments painful Right Flexion (S2) 4+ Good+ Extension (L3) 4+ Good+ Ankle/Foot Strength Ankle and Foot Manual Muscle Testing Left Dorsiflexion (L4) 4+ Good+ Plantarflexion (S1) 4+ Good+ Right Dorsiflexion (L4) 4+ Good+ Plantarflexion (S1) 4+ Good+ Toe Strength Toe Manual Muscle Testing Left Great Toe Flexion 4+ Good+ Extension 4+ Good+ Right Great Toe Flexion 4+ Good+ Extension 4+ Good+ PT-OP-Q Treatments Start: 04/06/18 15:16 Freq: Status: Active Protocol: Document 04/06/18 15:52 [facility] (Rec: 04/06/18 16:28 [facility] [id number]) Self-Care/Home Management Treatment Education Patient Education Home Exercise Program Other Education keep track of walking, gradually progressing distance /time Activities Self-Care/Home Management Activities use of heat PT-OP-S Aquatic Treatment Start: 04/06/18 15:16 Freq: Status: Active Protocol: Document 05/25/18 11:00 [facility] (Rec: 05/25/18 16:37 [facility] [id number]) Aquatics Treatment Pool Entry/Exit Pool Entry/Exit Method Stairs Assistance Independent Lower Extremity Stretches HS Water Level [place] Reps/Duration 2 Comments wall Upper Extremity Exercises lateral pull downs w/lg buoys Water Level [place] Reps/Duration 2 x5 reps hor ab/ad, flex/ext Details DLS emphasis, rahul and unil Body Position Standing Water Level Chest Level Reps/Duration 10x ea [place] Activities [place] Activities Bicycle Bicycle Backwards [place] Running Hip Abduction/Adduction Sit Kicks Other Activities pendulum ab curls Equipment large noodle Duration 20 min Comments 12 rounds 30:30 intervals Manual Techniques Bad Ragaz Active isometrics for core strengthening Passive for lumbar flexibility and relaxation WATSU for muscle relaxation, pain and pain management. [ End ] Aquatic Massage for decreased paraspinal muscle spasm and pain PT-OP-T Assessment and Plan Start: 04/06/18 15:16 Freq: Status: Active Protocol: Document 05/25/18 11:00 SAK (Rec: 05/25/18 16:37 SAK [id number]) Physical Therapy Assessment Goals activity tolerance Impairment activity tolerance [employer]visor [employer] Goal (LTG) Patient able to tolerate 45 min aquatic exercise program without an increase in pain. Reluctant to attempt activities recommended by therapist. Tended to do what she had been doing in the past LTG Duration 2 months 4 Impairment Strength Supervisor [employer] Goal (LTG) Improve strength bilateral LE' s and trunk to at least 4+/5 LTG Duration 2 months 3 Impairment ROM Supervisor [employer] Goal (LTG) Improve lumbar ROM to WNL LTG Duration 2 months 2 Impairment LBP as high as 7/10 Short Term Goal (STG) Decrease LBP to no greater than 5/10 with usual activities STG Duration 1 month [facility] Goal (LTG) Decrease pain to no greater than 3/10 LTG Duration 2 months 1 Impairment Oswestry disability index score 40% Short Term Goal (STG) Decrease Oswestry disability index score to 30% STG Duration 1 month [employer]visor [employer] Goal (LTG) Decrease Oswestry disability index score to 20% with patient able to return to work LTG Duration 2 months Physical Therapy Plan Frequency and Duration Frequency of Treatment 2x/Week Duration of Treatment 12 visits Plan of Care Start Date 04/06/18 Plan of Care End Date 06/04/18 Next Visit Focus/Plan Next Note Type Treatment Note Next Visit Plan Continue aquatic PT per POC to decrease pain, improve strength and functional activity tolerance with goal of returning patient to work.
--- NOTE | 2018-06-02 08:25 | PT.OTN ---
Current Diagnoses Intervertebral disc disorders with radiculopathy, lumbar region (06/01/18) Other intervertebral disc degeneration, lumbosacral region (06/01/18) Sprain of ligaments of lumbar spine, subsequent encounter (06/01/18) Physical Therapy Treatment Note PT-OP-A Visit Information Start: 04/06/18 15:16 Freq: Status: Active Protocol: Document 06/01/18 12:30 [facility] (Rec: 06/02/18 08:22 [facility]AK [id number]) Out-Patient Physical Therapy Visit Information Visit Information Visit Type Aquatic Treatment Note Visit Start Time 12:30 Visit Stop Time 13:15 Total Visit Minutes 45 Visit Number 10 Number of NUCLEAR REACTOR OPERATOR Visits 1 PT-OP-B Current Condition Start: 04/06/18 15:16 Freq: Status: Active Protocol: Document 04/06/18 15:52 SAK (Rec: 04/06/18 16:28 SAK [id number]) Current Condition History of Current Condition Onset Date September 2017 Current Complaints low back pain with radicular symptoms History of Current Condition Patient reports gradual worsening of LBP starting in September 2017, no known cause. Reports during a work shift her pain gradually worsened, severe pain that night. Hasn' t been able to work since. 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 At this time patient reports employer not willing to do any accomodation of light duty, shorter shifts, etc. Prior to exacerbation of pain September 2017 patient reports she was working 4 days per week. Long history LBP, history of knee injury with resulting complex regional pain syndrome left knee. Starting accupuncture trial today through L&I. Previously seen by this PT for aquatic PT. Patient unable to do aquatic exercise independently due to cost. Treatment Goals Patient/Caregiver Goals Decrease pain, improve activity tolerance including ability to return to work. Prior Functional Status Baseline Function- ADL's Independent Baseline Function- Mobility Independent Baseline Function- Gait indep no device Baseline Function- Work/School working 4 days per week Baseline Function- Recreation/Hobbies minimal Current Functional Impairments (Reported) Functional Limitations- ADL's painful Functional Limitations- Mobility/Gait painful Functional Limitations- Work/School unable due to pain Functional Limitations- Recreation/ painful Hobbies Personal Factors Other Personal Factors That May Effect Patient smokes 1/2 to 1 pack Therapy/Recovery per day PT-OP-C Subjective Start: 04/06/18 15:16 Freq: Status: Active Protocol: Document 06/01/18 12:30 SAK (Rec: 06/02/18 08:22 [facility] [id number]) OP-PT Subjective Patient Comments Patient Comments Reports not having a good day, poor sleep last night. Feeling stressed about some financial issues and other things. PT-OP-G Mobility & Gait Start: 04/06/18 15:16 Freq: Status: Active Protocol: Document 04/06/18 15:52 [facility] (Rec: 04/06/18 16:28 [facility] [id number]) OP Gait Assessment Gait Deviations General Gait Pattern Antalgic Wide Based Gait Comments Gait Comments Increased ER bilateral LE's PT-OP-J Posture/Palpation/Skin Start: 04/06/18 15:16 Freq: Status: Active Protocol: Document 04/06/18 15:52 [facility] (Rec: 04/06/18 16:28 [facility] [id number]) Posture Evaluation Position Standing Head/C-Spine Posture Forward Head T-Spine Posture Increased Kyphosis L-Spine Posture Flattened Palpation Assessment Location bilateral lumbar spine Palpation Findings Soft Tissue Tightness Muscle Guarding PT-OP-K Range of Motion Start: 04/06/18 15:16 Freq: Status: Active Protocol: Document 04/06/18 15:52 [facility] (Rec: 04/06/18 16:28 [facility] [id number]) Lumbar Spine Range of Motion Lumbar Spine Active Testing Position Standing Flexion 70 Extension 0 Rotation Left 20 Rotation Right 20 Lateral Flexion Left 10 Lateral Flexion Right 20 ROM Limitations Soft Tissue Tightness Pain Comments flexion occurs at hips, not lumbar spine Hip Goniometric Range of Motion Hip Measured in Degrees rahul Hip ROM WFL Yes Hip ROM Limitations Comments patient hypermobile Knee Goniometric Range of Motion Knee Measured in Degrees rahul Knee ROM WFL Yes Ankle and Foot Goniometric Range of Motion Ankle and Foot Measured in Degrees rahul Ankle/Foot ROM WFL Yes PT-OP-L Special Tests Start: 04/06/18 15:16 Freq: Status: Active Protocol: Document 04/06/18 15:52 [facility] (Rec: 04/06/18 16:28 [facility] [id number]) Special Tests Lumbar Spine Special Tests Prone Press Up Test Results unable Straight Leg Raise Test Results positive rahul Neural Special Tests- Lower Body Sciatic Nerve Tension Test Results positive rahul PT-OP-M Strength Start: 04/06/18 15:16 Freq: Status: Active Protocol: Document 04/06/18 15:52 [facility] (Rec: 04/06/18 16:28 [facility] [id number]) Trunk Strength Trunk Manual Muscle Testing Core Stabilization fair Reason Not Measured Pain Hip Strength Hip Manual Muscle Testing Left Flexion (L2) 4- Good- Abduction 4- Good- External Rotation 4- Good- Internal Rotation 4 Good Comments back pain with all resisted motions Right Flexion (L2) 4 Good Abduction 4 Good External Rotation 4- Good- Internal Rotation 4- Good- Comments back pain with all resisted motions Knee Strength Knee Manual Muscle Testing Left Flexion (S2) 4- Good- Extension (L3) 4 Good Comments painful Right Flexion (S2) 4+ Good+ Extension (L3) 4+ Good+ Ankle/Foot Strength Ankle and Foot Manual Muscle Testing Left Dorsiflexion (L4) 4+ Good+ Plantarflexion (S1) 4+ Good+ Right Dorsiflexion (L4) 4+ Good+ Plantarflexion (S1) 4+ Good+ Toe Strength Toe Manual Muscle Testing Left Great Toe Flexion 4+ Good+ Extension 4+ Good+ Right Great Toe Flexion 4+ Good+ Extension 4+ Good+ PT-OP-Q Treatments Start: 04/06/18 15:16 Freq: Status: Active Protocol: Document 04/06/18 15:52 [facility] (Rec: 04/06/18 16:28 [facility] [id number]) Self-Care/Home Management Treatment Education Patient Education Home Exercise Program Other Education keep track of walking, gradually progressing distance /time Activities Self-Care/Home Management Activities use of heat PT-OP-S Aquatic Treatment Start: 04/06/18 15:16 Freq: Status: Active Protocol: Document 06/01/18 12:30 [facility] (Rec: 06/02/18 08:22 [facility] [id number]) Aquatics Treatment Pool Entry/Exit Pool Entry/Exit Method Stairs Assistance Independent Lower Extremity Exercises circles Details CW and CCW Body Position Standing Reps/Duration 10x ea hip ab/ad, flex/ext Body Position Standing Water Level Chest Level Reps/Duration 10xea Lower Extremity Stretches piriformis stretch Body Position Standing Water Level Chest Level DKTC, SKTC Water Level [place] Reps/Duration 2x Comments wall HS Water Level [place] Reps/Duration 2 Comments wall [place] Activities [place] Activities Bicycle Bicycle Backwards Cross Country Running Duration 15 min Comments during deep water x-country patient reported spasm left buttock Manual Techniques Bad [place]az Passive for lumbar flexibility and relaxation WATSU for muscle relaxation, pain and pain management. [ End ] Aquatic Massage for decreased paraspinal and buttock muscle spasm and pain PT-OP-T Assessment and Plan Start: 04/06/18 15:16 Freq: Status: Active Protocol: Document 06/01/18 12:30 [facility]AK (Rec: 06/02/18 08:22 [facility] [id number]) Physical Therapy Assessment Goals activity tolerance Impairment activity tolerance Software Performance Engineer Goal (LTG) Patient able to tolerate 45 min aquatic exercise program without an increase in pain. Reluctant to attempt activities recommended by therapist. Tended to do what she had been doing in the past LTG Duration 2 months 4 Impairment Strength Care Home Goal (LTG) Improve strength bilateral LE' s and trunk to at least 4+/5 LTG Duration 2 months 3 Impairment ROM Software Performance Engineer Goal (LTG) Improve lumbar ROM to WNL (06/01/18: had been making good progress, but muscle spasm limited all ROM today) LTG Duration 2 months 2 Impairment LBP as high as 7/10 Short Term Goal (STG) Decrease LBP to no greater than 5/10 with usual activities (06/01/18: had been making good progress, but activity very limited today due to muscle spasm) STG Duration 1 month Software Performance Engineer Goal (LTG) Decrease pain to no greater than 3/10 LTG Duration 2 months 1 Impairment Oswestry disability index score 40% Short Term Goal (STG) Decrease Oswestry disability index score to 30% (06/01/18: again making good progress overall until today) STG Duration 1 month Software Performance Engineer Goal (LTG) Decrease Oswestry disability index score to 20% with patient able to return to work LTG Duration 2 months Assessment Summary Assessment Patient started session very tense and stressed then experienced muscle spasms left buttock limiting tolerance to active exercise. Unable to achieve muscle relaxation or relief of muscle spasm left piriformis with stretching or manual techniques Physical Therapy Plan Frequency and Duration Frequency of Treatment 2x/Week Duration of Treatment 12 visits Plan of Care Start Date 04/06/18 Plan of Care End Date 06/04/18 Next Visit Focus/Plan Next Note Type Treatment Note Next Visit Plan Continue aquatic PT per POC to decrease pain, improve strength and functional activity tolerance with goal of returning patient to work.
--- NOTE | 2018-06-22 16:44 | PT.OTRE ---
Current Diagnoses Intervertebral disc disorders with radiculopathy, lumbar region (06/22/18) Other intervertebral disc degeneration, lumbosacral region (06/22/18) Sprain of ligaments of lumbar spine, subsequent encounter (06/22/18) Provider Visit Care Team Role Provider Type Apolinar Garvin MD Attending Provider Non-Staff Primary Care Provider Specialty: Medical Address: [facility] [address] , [place], [address] Email: Physical Therapy Re-Evaluation PT-OP-A Visit Information Start: 04/06/18 15:16 Freq: Status: Active Protocol: Document 06/22/18 11:45 [facility]AK (Rec: 06/26/18 09:26 [facility]AK [id number]) Out-Patient Physical Therapy Visit Information Visit Information Visit Type Re-Evaluation Visit Start Time 11:45 Visit Stop Time 12:30 Total Visit Minutes 45 Visit Number 11 Number of AVIONICS INTEGRATION ENGINEER Visits 0 PT-OP-B Current Condition Start: 04/06/18 15:16 Freq: Status: Active Protocol: Document 04/06/18 15:52 [facility]AK (Rec: 04/06/18 16:28 [facility]AK [id number]) Current Condition History of Current Condition Onset Date September 2017 Current Complaints low back pain with radicular symptoms History of Current Condition Patient reports gradual worsening of LBP starting in September 2017, no known cause. Reports during a work shift her pain gradually worsened, severe pain that night. Hasn' t been able to work since. 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 At this time patient reports employer not willing to do any accomodation of light duty, shorter shifts, etc. Prior to exacerbation of pain September 2017 patient reports she was working 4 days per week. Long history LBP, history of knee injury with resulting complex regional pain syndrome left knee. Starting accupuncture trial today through L&I. Previously seen by this PT for aquatic PT. Patient unable to do aquatic exercise independently due to cost. Treatment Goals Patient/Caregiver Goals Decrease pain, improve activity tolerance including ability to return to work. Prior Functional Status Baseline Function- ADL's Independent Baseline Function- Mobility Independent Baseline Function- Gait indep no device Baseline Function- Work/School working 4 days per week Baseline Function- Recreation/Hobbies minimal Current Functional Impairments (Reported) Functional Limitations- ADL's painful Functional Limitations- Mobility/Gait painful Functional Limitations- Work/School unable due to pain Functional Limitations- Recreation/ painful Hobbies Personal Factors Other Personal Factors That May Effect Patient smokes 1/2 to 1 pack Therapy/Recovery per day PT-OP-C Subjective Start: 04/06/18 15:16 Freq: Status: Active Protocol: Document 06/22/18 11:45 [facility] (Rec: 06/26/18 09:26 [facility] [id number]) OP-PT Subjective Patient Comments Patient Comments States she had some dental work done so had to cancel PT. No more L and I approval for accupuncture and she can't afford on her own. Reports pain persists at a high level, worse without accupuncture and aquatic therapy. Feels like injection has worn off and she is waiting for approval for another shot. Reports typically 1 day pain reduction after both accupuncture and aquatic PT PT-OP-G Mobility & Gait Start: 04/06/18 15:16 Freq: Status: Active Protocol: Document 04/06/18 15:52 [facility] (Rec: 04/06/18 16:28 [facility] [id number]) OP Gait Assessment Gait Deviations General Gait Pattern Antalgic Wide Based Gait Comments Gait Comments Increased ER bilateral LE's PT-OP-J Posture/Palpation/Skin Start: 04/06/18 15:16 Freq: Status: Active Protocol: Document 04/06/18 15:52 [facility] (Rec: 04/06/18 16:28 [facility] [id number]) Posture Evaluation Position Standing Head/C-Spine Posture Forward Head T-Spine Posture Increased Kyphosis L-Spine Posture Flattened Palpation Assessment Location bilateral lumbar spine Palpation Findings Soft Tissue Tightness Muscle Guarding PT-OP-K Range of Motion Start: 04/06/18 15:16 Freq: Status: Active Protocol: Document 04/06/18 15:52 [facility] (Rec: 04/06/18 16:28 [facility] [id number]) Lumbar Spine Range of Motion Lumbar Spine Active Testing Position Standing Flexion 70 Extension 0 Rotation Left 20 Rotation Right 20 Lateral Flexion Left 10 Lateral Flexion Right 20 ROM Limitations Soft Tissue Tightness Pain Comments flexion occurs at hips, not lumbar spine Hip Goniometric Range of Motion Hip Measured in Degrees rahul Hip ROM WFL Yes Hip ROM Limitations Comments patient hypermobile Knee Goniometric Range of Motion Knee Measured in Degrees rahul Knee ROM WFL Yes Ankle and Foot Goniometric Range of Motion Ankle and Foot Measured in Degrees rahul Ankle/Foot ROM WFL Yes PT-OP-L Special Tests Start: 04/06/18 15:16 Freq: Status: Active Protocol: Document 04/06/18 15:52 [facility] (Rec: 04/06/18 16:28 [facility] [id number]) Special Tests Lumbar Spine Special Tests Prone Press Up Test Results unable Straight Leg Raise Test Results positive rahul Neural Special Tests- Lower Body Sciatic Nerve Tension Test Results positive rahul PT-OP-M Strength Start: 04/06/18 15:16 Freq: Status: Active Protocol: Document 04/06/18 15:52 [facility] (Rec: 04/06/18 16:28 [facility] [id number]) Trunk Strength Trunk Manual Muscle Testing Core Stabilization fair Reason Not Measured Pain Hip Strength Hip Manual Muscle Testing Left Flexion (L2) 4- Good- Abduction 4- Good- External Rotation 4- Good- Internal Rotation 4 Good Comments back pain with all resisted motions Right Flexion (L2) 4 Good Abduction 4 Good External Rotation 4- Good- Internal Rotation 4- Good- Comments back pain with all resisted motions Knee Strength Knee Manual Muscle Testing Left Flexion (S2) 4- Good- Extension (L3) 4 Good Comments painful Right Flexion (S2) 4+ Good+ Extension (L3) 4+ Good+ Ankle/Foot Strength Ankle and Foot Manual Muscle Testing Left Dorsiflexion (L4) 4+ Good+ Plantarflexion (S1) 4+ Good+ Right Dorsiflexion (L4) 4+ Good+ Plantarflexion (S1) 4+ Good+ Toe Strength Toe Manual Muscle Testing Left Great Toe Flexion 4+ Good+ Extension 4+ Good+ Right Great Toe Flexion 4+ Good+ Extension 4+ Good+ PT-OP-Q Treatments Start: 04/06/18 15:16 Freq: Status: Active Protocol: Document 04/06/18 15:52 [facility] (Rec: 04/06/18 16:28 [facility] [id number]) Self-Care/Home Management Treatment Education Patient Education Home Exercise Program Other Education keep track of walking, gradually progressing distance /time Activities Self-Care/Home Management Activities use of heat PT-OP-T Assessment and Plan Start: 04/06/18 15:16 Freq: Status: Active Protocol: Document 06/22/18 11:45 [facility] (Rec: 06/26/18 09:26 [facility] [id number]) Physical Therapy Assessment Goals activity tolerance Impairment activity tolerance Fdc Goal (LTG) Patient able to tolerate 45 min aquatic ex program without an increase in pain 06/22/18: goal progress, sessions end with manual techniques for muscle relaxation and pain management which patient is not able to do on her own. Will need to progress to aquatic ex only to see how patient chelsie. LTG Duration 2 months 4 Impairment Strength Exploration Engineer Goal (LTG) Improve strength bilateral LE' s and trunk to at least 4+/5 06/22/18: goal progress, though reports pain with all resisted motions in trunk and hips, difficulty stabilizing core during testing LTG Duration 2 months 3 Impairment ROM Exploration Engineer Goal (LTG) Improve lumbar ROM to WNL (06/01/18: had been making good progress, but muscle spasm limited all ROM today) 06/22/18: goal progress all motions except spinal extension poor tolerance due to pain. LTG Duration 2 months 2 Impairment LBP as high as 7/10 Short Term Goal (STG) Decrease LBP to no greater than 5/10 with usual activities (06/01/18: had been making good progress, but activity very limited today due to muscle spasm) 06/22/18: not seen since 06/01/18 due to PT schedule and patient having dental work. Patient pain worsened back to at least 7/10 STG Duration 1 month Exploration Engineer Goal (LTG) Decrease pain to no greater than 3/10 (06/22/18: as above) LTG Duration 2 months 1 Impairment Oswestry disability index score 40% Short Term Goal (STG) Decrease Oswestry disability index score to 30% (06/01/18: again making good progress overall until today) STG Duration 1 month Exploration Engineer Goal (LTG) Decrease Oswestry disability index score to 20% with patient able to return to work LTG Duration 2 months Assessment Summary Assessment Patient returns to aquatic PT after not being seen for 3 wks and having accupuncture discontinued due to no further coverage. She is reporting an increase in pain and decrease in activity tolerance since last seen. She experiences 1 day of decrease in pain following aquatic PT sessions. She is waiting for approval for another injection to her spine. No significant progress in pain reduction or ability to return to work demonstrated today. Patient would benefit from continued aquatic exercise and manual techniques as it is the only activity she is able to tolerate, but at this time am doubtful patient will be able to return to her prior job without significant limitations but will require a job that is less physically demanding. Physical Therapy Plan Frequency and Duration Frequency of Treatment 2x/Week Duration of Treatment 12 visits Plan of Care Start Date 06/22/18 Plan of Care End Date 08/22/18 Next Visit Focus/Plan Next Note Type Treatment Note Next Visit Plan Aquatic PT with weaning of manual techniques, increased exercise component for further strengthening, core stabilization, progression of activity tolerance.
--- NOTE | 2018-06-26 09:26 | PT.OTRE ---
Current Diagnoses Intervertebral disc disorders with radiculopathy, lumbar region (06/22/18) Other intervertebral disc degeneration, lumbosacral region (06/22/18) Sprain of ligaments of lumbar spine, subsequent encounter (06/22/18) Provider Visit Care Team Role Provider Type Apolinar Garvin MD Attending Provider Non-Staff Primary Care Provider Specialty: Medical Address: [facility] [address] , [place], [address] Email: Physical Therapy Re-Evaluation PT-OP-A Visit Information Start: 04/06/18 15:16 Freq: Status: Active Protocol: Document 06/22/18 11:45 [facility]AK (Rec: 06/26/18 09:26 SAK [id number]) Out-Patient Physical Therapy Visit Information Visit Information Visit Type Re-Evaluation Visit Start Time 11:45 Visit Stop Time 12:30 Total Visit Minutes 45 Visit Number 11 Number of JAVA WEB SERVICES DEVELOPER Visits 0 PT-OP-B Current Condition Start: 04/06/18 15:16 Freq: Status: Active Protocol: Document 04/06/18 15:52 SAK (Rec: 04/06/18 16:28 SAK [id number]) Current Condition History of Current Condition Onset Date September 2017 Current Complaints low back pain with radicular symptoms History of Current Condition Patient reports gradual worsening of LBP starting in September 2017, no known cause. Reports during a work shift her pain gradually worsened, severe pain that night. Hasn' t been able to work since. 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 At this time patient reports employer not willing to do any accomodation of light duty, shorter shifts, etc. Prior to exacerbation of pain September 2017 patient reports she was working 4 days per week. Long history LBP, history of knee injury with resulting complex regional pain syndrome left knee. Starting accupuncture trial today through L&I. Previously seen by this PT for aquatic PT. Patient unable to do aquatic exercise independently due to cost. Treatment Goals Patient/Caregiver Goals Decrease pain, improve activity tolerance including ability to return to work. Prior Functional Status Baseline Function- ADL's Independent Baseline Function- Mobility Independent Baseline Function- Gait indep no device Baseline Function- Work/School working 4 days per week Baseline Function- Recreation/Hobbies minimal Current Functional Impairments (Reported) Functional Limitations- ADL's painful Functional Limitations- Mobility/Gait painful Functional Limitations- Work/School unable due to pain Functional Limitations- Recreation/ painful Hobbies Personal Factors Other Personal Factors That May Effect Patient smokes 1/2 to 1 pack Therapy/Recovery per day PT-OP-C Subjective Start: 04/06/18 15:16 Freq: Status: Active Protocol: Document 06/22/18 11:45 [facility] (Rec: 06/26/18 09:26 [facility] [id number]) OP-PT Subjective Patient Comments Patient Comments States she had some dental work done so had to cancel PT. No more L and I approval for accupuncture and she can't afford on her own. Reports pain persists at a high level, worse without accupuncture and aquatic therapy. Feels like injection has worn off and she is waiting for approval for another shot. Reports typically 1 day pain reduction after both accupuncture and aquatic PT PT-OP-G Mobility & Gait Start: 04/06/18 15:16 Freq: Status: Active Protocol: Document 04/06/18 15:52 [facility] (Rec: 04/06/18 16:28 [facility] [id number]) OP Gait Assessment Gait Deviations General Gait Pattern Antalgic Wide Based Gait Comments Gait Comments Increased ER bilateral LE's PT-OP-J Posture/Palpation/Skin Start: 04/06/18 15:16 Freq: Status: Active Protocol: Document 04/06/18 15:52 [facility] (Rec: 04/06/18 16:28 [facility] [id number]) Posture Evaluation Position Standing Head/C-Spine Posture Forward Head T-Spine Posture Increased Kyphosis L-Spine Posture Flattened Palpation Assessment Location bilateral lumbar spine Palpation Findings Soft Tissue Tightness Muscle Guarding PT-OP-K Range of Motion Start: 04/06/18 15:16 Freq: Status: Active Protocol: Document 04/06/18 15:52 [facility] (Rec: 04/06/18 16:28 [facility] [id number]) Lumbar Spine Range of Motion Lumbar Spine Active Testing Position Standing Flexion 70 Extension 0 Rotation Left 20 Rotation Right 20 Lateral Flexion Left 10 Lateral Flexion Right 20 ROM Limitations Soft Tissue Tightness Pain Comments flexion occurs at hips, not lumbar spine Hip Goniometric Range of Motion Hip Measured in Degrees rahul Hip ROM WFL Yes Hip ROM Limitations Comments patient hypermobile Knee Goniometric Range of Motion Knee Measured in Degrees rahul Knee ROM WFL Yes Ankle and Foot Goniometric Range of Motion Ankle and Foot Measured in Degrees rahul Ankle/Foot ROM WFL Yes PT-OP-L Special Tests Start: 04/06/18 15:16 Freq: Status: Active Protocol: Document 04/06/18 15:52 [facility]AK (Rec: 04/06/18 16:28 [facility] [id number]) Special Tests Lumbar Spine Special Tests Prone Press Up Test Results unable Straight Leg Raise Test Results positive rahul Neural Special Tests- Lower Body Sciatic Nerve Tension Test Results positive rahul PT-OP-M Strength Start: 04/06/18 15:16 Freq: Status: Active Protocol: Document 04/06/18 15:52 [facility]AK (Rec: 04/06/18 16:28 [facility] [id number]) Trunk Strength Trunk Manual Muscle Testing Core Stabilization fair Reason Not Measured Pain Hip Strength Hip Manual Muscle Testing Left Flexion (L2) 4- Good- Abduction 4- Good- External Rotation 4- Good- Internal Rotation 4 Good Comments back pain with all resisted motions Right Flexion (L2) 4 Good Abduction 4 Good External Rotation 4- Good- Internal Rotation 4- Good- Comments back pain with all resisted motions Knee Strength Knee Manual Muscle Testing Left Flexion (S2) 4- Good- Extension (L3) 4 Good Comments painful Right Flexion (S2) 4+ Good+ Extension (L3) 4+ Good+ Ankle/Foot Strength Ankle and Foot Manual Muscle Testing Left Dorsiflexion (L4) 4+ Good+ Plantarflexion (S1) 4+ Good+ Right Dorsiflexion (L4) 4+ Good+ Plantarflexion (S1) 4+ Good+ Toe Strength Toe Manual Muscle Testing Left Great Toe Flexion 4+ Good+ Extension 4+ Good+ Right Great Toe Flexion 4+ Good+ Extension 4+ Good+ PT-OP-Q Treatments Start: 04/06/18 15:16 Freq: Status: Active Protocol: Document 04/06/18 15:52 [facility] (Rec: 04/06/18 16:28 [facility] [id number]) Self-Care/Home Management Treatment Education Patient Education Home Exercise Program Other Education keep track of walking, gradually progressing distance /time Activities Self-Care/Home Management Activities use of heat PT-OP-T Assessment and Plan Start: 04/06/18 15:16 Freq: Status: Active Protocol: Document 06/22/18 11:45 [facility]AK (Rec: 06/26/18 09:26 [facility] [id number]) Physical Therapy Assessment Goals activity tolerance Impairment activity tolerance Long-Term Goal (LTG) Patient able to tolerate 45 min aquatic ex program without an increase in pain 06/22/18: goal progress, sessions end with manual techniques for muscle relaxation and pain management which patient is not able to do on her own. Will need to progress to aquatic ex only to see how patient chelsie. LTG Duration 2 months 4 Impairment Strength Social Services Director Goal (LTG) Improve strength bilateral LE' s and trunk to at least 4+/5 06/22/18: goal progress, though reports pain with all resisted motions in trunk and hips, difficulty stabilizing core during testing LTG Duration 2 months 3 Impairment ROM Social Services Director Goal (LTG) Improve lumbar ROM to WNL (06/01/18: had been making good progress, but muscle spasm limited all ROM today) 06/22/18: goal progress all motions except spinal extension poor tolerance due to pain. LTG Duration 2 months 2 Impairment LBP as high as 7/10 Short Term Goal (STG) Decrease LBP to no greater than 5/10 with usual activities (06/01/18: had been making good progress, but activity very limited today due to muscle spasm) 06/22/18: not seen since 06/01/18 due to PT schedule and patient having dental work. Patient pain worsened back to at least 7/10 STG Duration 1 month Social Services Director Goal (LTG) Decrease pain to no greater than 3/10 (06/22/18: as above) LTG Duration 2 months 1 Impairment Oswestry disability index score 40% Short Term Goal (STG) Decrease Oswestry disability index score to 30% (06/01/18: again making good progress overall until today) STG Duration 1 month Social Services Director Goal (LTG) Decrease Oswestry disability index score to 20% with patient able to return to work LTG Duration 2 months Assessment Summary Assessment Patient returns to aquatic PT after not being seen for 3 wks and having accupuncture discontinued due to no further coverage. She is reporting an increase in pain and decrease in activity tolerance since last seen. She experiences 1 day of decrease in pain following aquatic PT sessions. She is waiting for approval for another injection to her spine. No significant progress in pain reduction or ability to return to work demonstrated today. Patient would benefit from continued aquatic exercise and manual techniques as it is the only activity she is able to tolerate, but long-term return to work potential is questionable. Physical Therapy Plan Frequency and Duration Frequency of Treatment 2x/Week Duration of Treatment 12 visits Plan of Care Start Date 06/22/18 Plan of Care End Date 08/22/18 Next Visit Focus/Plan Next Note Type Treatment Note Next Visit Plan Aquatic PT with weaning of manual techniques, increased exercise component for further strengthening, core stabilization, progression of activity tolerance.
--- NOTE | 2018-06-29 13:32 | PT.OTN ---
Current Diagnoses Intervertebral disc disorders with radiculopathy, lumbar region (06/29/18) Other intervertebral disc degeneration, lumbosacral region (06/29/18) Sprain of ligaments of lumbar spine, subsequent encounter (06/29/18) Physical Therapy Treatment Note PT-OP-A Visit Information Start: 04/06/18 15:16 Freq: Status: Active Protocol: Document 06/29/18 11:45 [facility] (Rec: 06/30/18 13:31 [facility] [id number]) Out-Patient Physical Therapy Visit Information Visit Information Visit Type Treatment Note Visit Start Time 11:45 Visit Stop Time 12:30 Total Visit Minutes 45 Visit Number 12 Number of FORMATION FRACTURING OPERATOR Visits 0 PT-OP-B Current Condition Start: 04/06/18 15:16 Freq: Status: Active Protocol: Document 04/06/18 15:52 [facility]AK (Rec: 04/06/18 16:28 [facility] [id number]) Current Condition History of Current Condition Onset Date September 2017 Current Complaints low back pain with radicular symptoms History of Current Condition Patient reports gradual worsening of LBP starting in September 2017, no known cause. Reports during a work shift her pain gradually worsened, severe pain that night. Hasn' t been able to work since. 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 At this time patient reports employer not willing to do any accomodation of light duty, shorter shifts, etc. Prior to exacerbation of pain September 2017 patient reports she was working 4 days per week. Long history LBP, history of knee injury with resulting complex regional pain syndrome left knee. Starting accupuncture trial today through L&I. Previously seen by this PT for aquatic PT. Patient unable to do aquatic exercise independently due to cost. Treatment Goals Patient/Caregiver Goals Decrease pain, improve activity tolerance including ability to return to work. Prior Functional Status Baseline Function- ADL's Independent Baseline Function- Mobility Independent Baseline Function- Gait indep no device Baseline Function- Work/School working 4 days per week Baseline Function- Recreation/Hobbies minimal Current Functional Impairments (Reported) Functional Limitations- ADL's painful Functional Limitations- Mobility/Gait painful Functional Limitations- Work/School unable due to pain Functional Limitations- Recreation/ painful Hobbies Personal Factors Other Personal Factors That May Effect Patient smokes 1/2 to 1 pack Therapy/Recovery per day PT-OP-C Subjective Start: 04/06/18 15:16 Freq: Status: Active Protocol: Document 06/29/18 11:45 [facility]AK (Rec: 06/30/18 13:31 [facility] [id number]) OP-PT Subjective Patient Comments Patient Comments Reports she got good sleep last night, came to pool a couple days ago on her own. Decreased pain level today: it's so nice to feel relatively good. PT-OP-G Mobility & Gait Start: 04/06/18 15:16 Freq: Status: Active Protocol: Document 04/06/18 15:52 [facility]AK (Rec: 04/06/18 16:28 [facility] [id number]) OP Gait Assessment Gait Deviations General Gait Pattern Antalgic Wide Based Gait Comments Gait Comments Increased ER bilateral LE's PT-OP-J Posture/Palpation/Skin Start: 04/06/18 15:16 Freq: Status: Active Protocol: Document 04/06/18 15:52 [facility]AK (Rec: 04/06/18 16:28 [facility] [id number]) Posture Evaluation Position Standing Head/C-Spine Posture Forward Head T-Spine Posture Increased Kyphosis L-Spine Posture Flattened Palpation Assessment Location bilateral lumbar spine Palpation Findings Soft Tissue Tightness Muscle Guarding PT-OP-K Range of Motion Start: 04/06/18 15:16 Freq: Status: Active Protocol: Document 04/06/18 15:52 [facility] (Rec: 04/06/18 16:28 [facility] [id number]) Lumbar Spine Range of Motion Lumbar Spine Active Testing Position Standing Flexion 70 Extension 0 Rotation Left 20 Rotation Right 20 Lateral Flexion Left 10 Lateral Flexion Right 20 ROM Limitations Soft Tissue Tightness Pain Comments flexion occurs at hips, not lumbar spine Hip Goniometric Range of Motion Hip Measured in Degrees rahul Hip ROM WFL Yes Hip ROM Limitations Comments patient hypermobile Knee Goniometric Range of Motion Knee Measured in Degrees rahul Knee ROM WFL Yes Ankle and Foot Goniometric Range of Motion Ankle and Foot Measured in Degrees rahul Ankle/Foot ROM WFL Yes PT-OP-L Special Tests Start: 04/06/18 15:16 Freq: Status: Active Protocol: Document 04/06/18 15:52 [facility] (Rec: 04/06/18 16:28 [facility] [id number]) Special Tests Lumbar Spine Special Tests Prone Press Up Test Results unable Straight Leg Raise Test Results positive rahul Neural Special Tests- Lower Body Sciatic Nerve Tension Test Results positive rahul PT-OP-M Strength Start: 04/06/18 15:16 Freq: Status: Active Protocol: Document 04/06/18 15:52 [facility] (Rec: 04/06/18 16:28 [facility] [id number]) Trunk Strength Trunk Manual Muscle Testing Core Stabilization fair Reason Not Measured Pain Hip Strength Hip Manual Muscle Testing Left Flexion (L2) 4- Good- Abduction 4- Good- External Rotation 4- Good- Internal Rotation 4 Good Comments back pain with all resisted motions Right Flexion (L2) 4 Good Abduction 4 Good External Rotation 4- Good- Internal Rotation 4- Good- Comments back pain with all resisted motions Knee Strength Knee Manual Muscle Testing Left Flexion (S2) 4- Good- Extension (L3) 4 Good Comments painful Right Flexion (S2) 4+ Good+ Extension (L3) 4+ Good+ Ankle/Foot Strength Ankle and Foot Manual Muscle Testing Left Dorsiflexion (L4) 4+ Good+ Plantarflexion (S1) 4+ Good+ Right Dorsiflexion (L4) 4+ Good+ Plantarflexion (S1) 4+ Good+ Toe Strength Toe Manual Muscle Testing Left Great Toe Flexion 4+ Good+ Extension 4+ Good+ Right Great Toe Flexion 4+ Good+ Extension 4+ Good+ PT-OP-Q Treatments Start: 04/06/18 15:16 Freq: Status: Active Protocol: Document 04/06/18 15:52 [facility] (Rec: 04/06/18 16:28 [facility] [id number]) Self-Care/Home Management Treatment Education Patient Education Home Exercise Program Other Education keep track of walking, gradually progressing distance /time Activities Self-Care/Home Management Activities use of heat PT-OP-S Aquatic Treatment Start: 04/06/18 15:16 Freq: Status: Active Protocol: Document 06/29/18 11:45 [facility] (Rec: 06/30/18 13:31 [facility] [id number]) Aquatics Treatment Pool Entry/Exit Pool Entry/Exit Method Stairs Assistance Independent Lower Extremity Exercises circles Details CW and CCW Body Position Standing Reps/Duration 10x ea hip ab/ad, flex/ext Body Position Standing Water Level Chest Level Reps/Duration 10xea Lower Extremity Stretches piriformis stretch Body Position Standing Water Level Chest Level DKTC, SKTC Water Level Julian Reps/Duration 2x Comments wall HS Water Level Julian Reps/Duration 2 Comments wall Upper Extremity Exercises lateral pull downs w/lg buoys Water Level Julian Reps/Duration 10x hor ab/ad, flex/ext Details DLS emphasis, rahul and unil Body Position Standing Water Level Chest Level Reps/Duration 10x ea Julian Activities Julian Activities Bicycle Bicycle Backwards Cross [place] Running Hip Abduction/Adduction Sit Kicks Other Activities bicycle with arms at sides holding barbells submerged deep water DLS: med barbells ( added partial supine to partial prone pendulums) Duration 20 min Comments 10 rounds 30:30 intervals Manual Techniques Bad Ragaz Passive for lumbar flexibility and relaxation WATSU for muscle relaxation, pain and pain management. (no hip or trunk rotation) [ End ] Aquatic Massage for decreased paraspinal and buttock pain. PT-OP-T Assessment and Plan Start: 04/06/18 15:16 Freq: Status: Active Protocol: Document 06/29/18 11:45 [facility] (Rec: 06/30/18 13:31 [facility] [id number]) Physical Therapy Assessment Goals activity tolerance Impairment activity tolerance Senior Care Goal (LTG) Patient able to tolerate 45 min aquatic ex program without an increase in pain 06/22/18: goal progress, sessions end with manual techniques for muscle relaxation and pain management which patient is not able to do on her own. Will need to progress to aquatic ex only to see how patient chelsie. LTG Duration 2 months 4 Impairment Strength Senior Care Goal (LTG) Improve strength bilateral LE' s and trunk to at least 4+/5 06/22/18: goal progress, though reports pain with all resisted motions in trunk and hips, difficulty stabilizing core during testing LTG Duration 2 months 3 Impairment ROM Slab Lifting Engineer Goal (LTG) Improve lumbar ROM to WNL (06/01/18: had been making good progress, but muscle spasm limited all ROM today) 06/22/18: goal progress all motions except spinal extension poor tolerance due to pain. LTG Duration 2 months 2 Impairment LBP as high as 7/10 Short Term Goal (STG) Decrease LBP to no greater than 5/10 with usual activities (06/01/18: had been making good progress, but activity very limited today due to muscle spasm) 06/22/18: not seen since 06/01/18 due to PT schedule and patient having dental work. Patient pain worsened back to at least 7/10 STG Duration 1 month Slab Lifting Engineer Goal (LTG) Decrease pain to no greater than 3/10 (06/22/18: as above) LTG Duration 2 months 1 Impairment Oswestry disability index score 40% Short Term Goal (STG) Decrease Oswestry disability index score to 30% (06/01/18: again making good progress overall until today) STG Duration 1 month Senior Care Goal (LTG) Decrease Oswestry disability index score to 20% with patient able to return to work LTG Duration 2 months Assessment Summary Assessment Much improved today, lower stress level, positive affect, able to progress ther aquatic ex with no c/o pain. Physical Therapy Plan Hold Physical Therapy Reason For Hold awaiting insurance approval for more visits. Next Visit Focus/Plan Next Note Type Treatment Note Next Visit Plan await approval from L and I for more PT visits. Will progress to land-based PT as tolerated with continued PT to try to transition patient back to work.
--- NOTE | 2018-06-30 13:31 | PT.OTN ---
Current Diagnoses Intervertebral disc disorders with radiculopathy, lumbar region (06/29/18) Other intervertebral disc degeneration, lumbosacral region (06/29/18) Sprain of ligaments of lumbar spine, subsequent encounter (06/29/18) Physical Therapy Treatment Note PT-OP-A Visit Information Start: 04/06/18 15:16 Freq: Status: Active Protocol: Document 06/29/18 11:45 SAK (Rec: 06/30/18 13:31 SAK [id number]) Out-Patient Physical Therapy Visit Information Visit Information Visit Type Treatment Note Visit Start Time 11:45 Visit Stop Time 12:30 Total Visit Minutes 45 Visit Number 12 Number of CONCRETE SWIMMING POOL INSTALLER Visits 0 PT-OP-B Current Condition Start: 04/06/18 15:16 Freq: Status: Active Protocol: Document 04/06/18 15:52 SAK (Rec: 04/06/18 16:28 SAK [id number]) Current Condition History of Current Condition Onset Date September 2017 Current Complaints low back pain with radicular symptoms History of Current Condition Patient reports gradual worsening of LBP starting in September 2017, no known cause. Reports during a work shift her pain gradually worsened, severe pain that night. Hasn' t been able to work since. 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 At this time patient reports employer not willing to do any accomodation of light duty, shorter shifts, etc. Prior to exacerbation of pain September 2017 patient reports she was working 4 days per week. Long history LBP, history of knee injury with resulting complex regional pain syndrome left knee. Starting accupuncture trial today through [facility]I. Previously seen by this PT for aquatic PT. Patient unable to do aquatic exercise independently due to cost. Treatment Goals Patient/Caregiver Goals Decrease pain, improve activity tolerance including ability to return to work. Prior Functional Status Baseline Function- ADL's Independent Baseline Function- Mobility Independent Baseline Function- Gait indep no device Baseline Function- Work/School working 4 days per week Baseline Function- Recreation/Hobbies minimal Current Functional Impairments (Reported) Functional Limitations- ADL's painful Functional Limitations- Mobility/Gait painful Functional Limitations- Work/School unable due to pain Functional Limitations- Recreation/ painful Hobbies Personal Factors Other Personal Factors That May Effect Patient smokes 1/2 to 1 pack Therapy/Recovery per day PT-OP-C Subjective Start: 04/06/18 15:16 Freq: Status: Active Protocol: Document 06/29/18 11:45 SAK (Rec: 06/30/18 13:31 [facility] [id number]) OP-PT Subjective Patient Comments Patient Comments Reports she got good sleep last night, came to pool a couple days ago on her own. Decreased pain level today: it's so nice to feel relatively good. PT-OP-G Mobility & Gait Start: 04/06/18 15:16 Freq: Status: Active Protocol: Document 04/06/18 15:52 SAK (Rec: 04/06/18 16:28 [facility] [id number]) OP Gait Assessment Gait Deviations General Gait Pattern Antalgic Wide Based Gait Comments Gait Comments Increased ER bilateral LE's PT-OP-J Posture/Palpation/Skin Start: 04/06/18 15:16 Freq: Status: Active Protocol: Document 04/06/18 15:52 SAK (Rec: 04/06/18 16:28 [facility] [id number]) Posture Evaluation Position Standing Head/C-Spine Posture Forward Head T-Spine Posture Increased Kyphosis L-Spine Posture Flattened Palpation Assessment Location bilateral lumbar spine Palpation Findings Soft Tissue Tightness Muscle Guarding PT-OP-K Range of Motion Start: 04/06/18 15:16 Freq: Status: Active Protocol: Document 04/06/18 15:52 [facility] (Rec: 04/06/18 16:28 [facility] [id number]) Lumbar Spine Range of Motion Lumbar Spine Active Testing Position Standing Flexion 70 Extension 0 Rotation Left 20 Rotation Right 20 Lateral Flexion Left 10 Lateral Flexion Right 20 ROM Limitations Soft Tissue Tightness Pain Comments flexion occurs at hips, not lumbar spine Hip Goniometric Range of Motion Hip Measured in Degrees rahul Hip ROM WFL Yes Hip ROM Limitations Comments patient hypermobile Knee Goniometric Range of Motion Knee Measured in Degrees rahul Knee ROM WFL Yes Ankle and Foot Goniometric Range of Motion Ankle and Foot Measured in Degrees rahul Ankle/Foot ROM WFL Yes PT-OP-L Special Tests Start: 04/06/18 15:16 Freq: Status: Active Protocol: Document 04/06/18 15:52 SAK (Rec: 04/06/18 16:28 [facility] [id number]) Special Tests Lumbar Spine Special Tests Prone Press Up Test Results unable Straight Leg Raise Test Results positive rahul Neural Special Tests- Lower Body Sciatic Nerve Tension Test Results positive rahul PT-OP-M Strength Start: 04/06/18 15:16 Freq: Status: Active Protocol: Document 04/06/18 15:52 [facility] (Rec: 04/06/18 16:28 [facility] [id number]) Trunk Strength Trunk Manual Muscle Testing Core Stabilization fair Reason Not Measured Pain Hip Strength Hip Manual Muscle Testing Left Flexion (L2) 4- Good- Abduction 4- Good- External Rotation 4- Good- Internal Rotation 4 Good Comments back pain with all resisted motions Right Flexion (L2) 4 Good Abduction 4 Good External Rotation 4- Good- Internal Rotation 4- Good- Comments back pain with all resisted motions Knee Strength Knee Manual Muscle Testing Left Flexion (S2) 4- Good- Extension (L3) 4 Good Comments painful Right Flexion (S2) 4+ Good+ Extension (L3) 4+ Good+ Ankle/Foot Strength Ankle and Foot Manual Muscle Testing Left Dorsiflexion (L4) 4+ Good+ Plantarflexion (S1) 4+ Good+ Right Dorsiflexion (L4) 4+ Good+ Plantarflexion (S1) 4+ Good+ Toe Strength Toe Manual Muscle Testing Left Great Toe Flexion 4+ Good+ Extension 4+ Good+ Right Great Toe Flexion 4+ Good+ Extension 4+ Good+ PT-OP-Q Treatments Start: 04/06/18 15:16 Freq: Status: Active Protocol: Document 04/06/18 15:52 [facility] (Rec: 04/06/18 16:28 [facility] [id number]) Self-Care/Home Management Treatment Education Patient Education Home Exercise Program Other Education keep track of walking, gradually progressing distance /time Activities Self-Care/Home Management Activities use of heat PT-OP-S Aquatic Treatment Start: 04/06/18 15:16 Freq: Status: Active Protocol: Document 06/29/18 11:45 [facility] (Rec: 06/30/18 13:31 [facility] [id number]) Aquatics Treatment Pool Entry/Exit Pool Entry/Exit Method Stairs Assistance Independent Lower Extremity Exercises circles Details CW and CCW Body Position Standing Reps/Duration 10x ea hip ab/ad, flex/ext Body Position Standing Water Level Chest Level Reps/Duration 10xea Lower Extremity Stretches piriformis stretch Body Position Standing Water Level Chest Level DKTC, SKTC Water Level [place] Reps/Duration 2x Comments wall HS Water Level [place] Reps/Duration 2 Comments wall Upper Extremity Exercises lateral pull downs w/lg buoys Water Level [place] Reps/Duration 10x hor ab/ad, flex/ext Details DLS emphasis, rahul and unil Body Position Standing Water Level Chest Level Reps/Duration 10x ea [place] Activities [place] Activities Bicycle Bicycle Backwards [place] Running Hip Abduction/Adduction Sit Kicks Other Activities bicycle with arms at sides holding barbells submerged deep water DLS: med barbells ( added partial supine to partial prone pendulums) Duration 20 min Comments 10 rounds 30:30 intervals Manual Techniques Bad Ragaz Passive for lumbar flexibility and relaxation WATSU for muscle relaxation, pain and pain management. (no hip or trunk rotation) [ End ] Aquatic Massage for decreased paraspinal and buttock pain. PT-OP-T Assessment and Plan Start: 04/06/18 15:16 Freq: Status: Active Protocol: Document 06/29/18 11:45 SAK (Rec: 06/30/18 13:31 SAK [id number]) Physical Therapy Assessment Goals activity tolerance Impairment activity tolerance Assisted Goal (LTG) Patient able to tolerate 45 min aquatic ex program without an increase in pain 06/22/18: goal progress, sessions end with manual techniques for muscle relaxation and pain management which patient is not able to do on her own. Will need to progress to aquatic ex only to see how patient chelsie. LTG Duration 2 months 4 Impairment Strength Assisted Goal (LTG) Improve strength bilateral LE' s and trunk to at least 4+/5 06/22/18: goal progress, though reports pain with all resisted motions in trunk and hips, difficulty stabilizing core during testing LTG Duration 2 months 3 Impairment ROM Bead Filler Goal (LTG) Improve lumbar ROM to WNL (06/01/18: had been making good progress, but muscle spasm limited all ROM today) 06/22/18: goal progress all motions except spinal extension poor tolerance due to pain. LTG Duration 2 months 2 Impairment LBP as high as 7/10 Short Term Goal (STG) Decrease LBP to no greater than 5/10 with usual activities (06/01/18: had been making good progress, but activity very limited today due to muscle spasm) 06/22/18: not seen since 06/01/18 due to PT schedule and patient having dental work. Patient pain worsened back to at least 7/10 STG Duration 1 month Bead Filler Goal (LTG) Decrease pain to no greater than 3/10 (06/22/18: as above) LTG Duration 2 months 1 Impairment Oswestry disability index score 40% Short Term Goal (STG) Decrease Oswestry disability index score to 30% (06/01/18: again making good progress overall until today) STG Duration 1 month Assisted Goal (LTG) Decrease Oswestry disability index score to 20% with patient able to return to work LTG Duration 2 months Assessment Summary Assessment Much improved today, lower stress level, positive affect, able to progress ther aquatic ex with no c/o pain. Physical Therapy Plan Hold Physical Therapy Reason For Hold awaiting insurance approval for more visits. Next Visit Focus/Plan Next Note Type Treatment Note Next Visit Plan await approval from L and I for more PT visits. Will progress to land-based PT as tolerated with continued PT to try to transition patient back to work.
--- NOTE | 2018-07-08 14:45 | PT.OTN ---
Current Diagnoses Intervertebral disc disorders with radiculopathy, lumbar region (07/08/18) Other intervertebral disc degeneration, lumbosacral region (07/08/18) Sprain of ligaments of lumbar spine, subsequent encounter (07/08/18) Physical Therapy Treatment Note PT-OP-A Visit Information Start: 04/06/18 15:16 Freq: Status: Active Protocol: Document 07/08/18 14:37 SAK (Rec: 07/08/18 14:45 SAK [id number]) Out-Patient Physical Therapy Visit Information Visit Information Visit Type Treatment Note Visit Start Time 12:30 Visit Stop Time 13:15 Total Visit Minutes 45 Visit Number 13 Number of CLINIC PHYSICIAN DIRECTOR Visits 0 PT-OP-B Current Condition Start: 04/06/18 15:16 Freq: Status: Active Protocol: Document 04/06/18 15:52 SAK (Rec: 04/06/18 16:28 SAK [id number]) Current Condition History of Current Condition Onset Date September 2017 Current Complaints low back pain with radicular symptoms History of Current Condition Patient reports gradual worsening of LBP starting in September 2017, no known cause. Reports during a work shift her pain gradually worsened, severe pain that night. Hasn' t been able to work since. 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 At this time patient reports employer not willing to do any accomodation of light duty, shorter shifts, etc. Prior to exacerbation of pain September 2017 patient reports she was working 4 days per week. Long history LBP, history of knee injury with resulting complex regional pain syndrome left knee. Starting accupuncture trial today through [facility]. Previously seen by this PT for aquatic PT. Patient unable to do aquatic exercise independently due to cost. Treatment Goals Patient/Caregiver Goals Decrease pain, improve activity tolerance including ability to return to work. Prior Functional Status Baseline Function- ADL's Independent Baseline Function- Mobility Independent Baseline Function- Gait indep no device Baseline Function- Work/School working 4 days per week Baseline Function- Recreation/Hobbies minimal Current Functional Impairments (Reported) Functional Limitations- ADL's painful Functional Limitations- Mobility/Gait painful Functional Limitations- Work/School unable due to pain Functional Limitations- Recreation/ painful Hobbies Personal Factors Other Personal Factors That May Effect Patient smokes 1/2 to 1 pack Therapy/Recovery per day PT-OP-C Subjective Start: 04/06/18 15:16 Freq: Status: Active Protocol: Document 07/08/18 14:37 SAK (Rec: 07/08/18 14:45 [facility] [id number]) OP-PT Subjective Patient Comments Patient Comments States she is having an injection 07/12/18. Hoping to go back to work end of next month starting with light duty . PT-OP-G Mobility & Gait Start: 04/06/18 15:16 Freq: Status: Active Protocol: Document 04/06/18 15:52 SAK (Rec: 04/06/18 16:28 [facility] [id number]) OP Gait Assessment Gait Deviations General Gait Pattern Antalgic Wide Based Gait Comments Gait Comments Increased ER bilateral LE's PT-OP-J Posture/Palpation/Skin Start: 04/06/18 15:16 Freq: Status: Active Protocol: Document 04/06/18 15:52 SAK (Rec: 04/06/18 16:28 [facility] [id number]) Posture Evaluation Position Standing Head/C-Spine Posture Forward Head T-Spine Posture Increased Kyphosis L-Spine Posture Flattened Palpation Assessment Location bilateral lumbar spine Palpation Findings Soft Tissue Tightness Muscle Guarding PT-OP-K Range of Motion Start: 04/06/18 15:16 Freq: Status: Active Protocol: Document 04/06/18 15:52 SAK (Rec: 04/06/18 16:28 [facility] [id number]) Lumbar Spine Range of Motion Lumbar Spine Active Testing Position Standing Flexion 70 Extension 0 Rotation Left 20 Rotation Right 20 Lateral Flexion Left 10 Lateral Flexion Right 20 ROM Limitations Soft Tissue Tightness Pain Comments flexion occurs at hips, not lumbar spine Hip Goniometric Range of Motion Hip Measured in Degrees rahul Hip ROM WFL Yes Hip ROM Limitations Comments patient hypermobile Knee Goniometric Range of Motion Knee Measured in Degrees rahul Knee ROM WFL Yes Ankle and Foot Goniometric Range of Motion Ankle and Foot Measured in Degrees rahul Ankle/Foot ROM WFL Yes PT-OP-L Special Tests Start: 04/06/18 15:16 Freq: Status: Active Protocol: Document 04/06/18 15:52 SAK (Rec: 04/06/18 16:28 [facility] [id number]) Special Tests Lumbar Spine Special Tests Prone Press Up Test Results unable Straight Leg Raise Test Results positive rahul Neural Special Tests- Lower Body Sciatic Nerve Tension Test Results positive rahul PT-OP-M Strength Start: 04/06/18 15:16 Freq: Status: Active Protocol: Document 04/06/18 15:52 [facility] (Rec: 04/06/18 16:28 [facility] [id number]) Trunk Strength Trunk Manual Muscle Testing Core Stabilization fair Reason Not Measured Pain Hip Strength Hip Manual Muscle Testing Left Flexion (L2) 4- Good- Abduction 4- Good- External Rotation 4- Good- Internal Rotation 4 Good Comments back pain with all resisted motions Right Flexion (L2) 4 Good Abduction 4 Good External Rotation 4- Good- Internal Rotation 4- Good- Comments back pain with all resisted motions Knee Strength Knee Manual Muscle Testing Left Flexion (S2) 4- Good- Extension (L3) 4 Good Comments painful Right Flexion (S2) 4+ Good+ Extension (L3) 4+ Good+ Ankle/Foot Strength Ankle and Foot Manual Muscle Testing Left Dorsiflexion (L4) 4+ Good+ Plantarflexion (S1) 4+ Good+ Right Dorsiflexion (L4) 4+ Good+ Plantarflexion (S1) 4+ Good+ Toe Strength Toe Manual Muscle Testing Left Great Toe Flexion 4+ Good+ Extension 4+ Good+ Right Great Toe Flexion 4+ Good+ Extension 4+ Good+ PT-OP-Q Treatments Start: 04/06/18 15:16 Freq: Status: Active Protocol: Document 04/06/18 15:52 [facility] (Rec: 04/06/18 16:28 [facility] [id number]) Self-Care/Home Management Treatment Education Patient Education Home Exercise Program Other Education keep track of walking, gradually progressing distance /time Activities Self-Care/Home Management Activities use of heat PT-OP-S Aquatic Treatment Start: 04/06/18 15:16 Freq: Status: Active Protocol: Document 07/08/18 14:37 [facility] (Rec: 07/08/18 14:45 [facility] [id number]) Aquatics Treatment Pool Entry/Exit Pool Entry/Exit Method Stairs Assistance Independent Lower Extremity Stretches piriformis stretch Body Position Standing Water Level Chest Level DKTC, SKTC Water Level [place] Reps/Duration 2x Comments wall HS Water Level [place] Reps/Duration 2 Comments wall Upper Extremity Exercises lateral pull downs w/lg buoys Water Level [place] Reps/Duration 10x [place] Activities [place] Activities Bicycle Bicycle Backwards [place] Running Hip Abduction/Adduction Sit Kicks Other Activities bicycle with arms at sides holding barbells submerged deep water DLS: med barbells. Progressed side pendulums with isometric hold with lower leg lowering and raising. Duration 20 min Comments 12 rounds 30:30 intervals Manual Techniques Bad Ragaz Passive for lumbar flexibility and relaxation WATSU for muscle relaxation, pain and pain management. (no hip or trunk rotation) [ End ] Aquatic Joint Mobilizations counternutation of sacrum. Aquatic Massage for decreased paraspinal and buttock pain. PT-OP-T Assessment and Plan Start: 04/06/18 15:16 Freq: Status: Active Protocol: Document 07/08/18 14:37 SAK (Rec: 07/08/18 14:45 [facility] [id number]) Physical Therapy Assessment Goals activity tolerance Impairment activity tolerance Boat Driver Goal (LTG) Patient able to tolerate 45 min aquatic ex program without an increase in pain 06/22/18: goal progress, sessions end with manual techniques for muscle relaxation and pain management which patient is not able to do on her own. Will need to progress to aquatic ex only to see how patient chelsie. LTG Duration 2 months 4 Impairment Strength Mcfp Goal (LTG) Improve strength bilateral LE' s and trunk to at least 4+/5 06/22/18: goal progress, though reports pain with all resisted motions in trunk and hips, difficulty stabilizing core during testing LTG Duration 2 months 3 Impairment ROM Boat Driver Goal (LTG) Improve lumbar ROM to WNL (06/01/18: had been making good progress, but muscle spasm limited all ROM today) 06/22/18: goal progress all motions except spinal extension poor tolerance due to pain. LTG Duration 2 months 2 Impairment LBP as high as 7/10 Short Term Goal (STG) Decrease LBP to no greater than 5/10 with usual activities (06/01/18: had been making good progress, but activity very limited today due to muscle spasm) 06/22/18: not seen since 06/01/18 due to PT schedule and patient having dental work. Patient pain worsened back to at least 7/10 STG Duration 1 month Boat Driver Goal (LTG) Decrease pain to no greater than 3/10 (06/22/18: as above) LTG Duration 2 months 1 Impairment Oswestry disability index score 40% Short Term Goal (STG) Decrease Oswestry disability index score to 30% (06/01/18: again making good progress overall until today) STG Duration 1 month Mcfp Goal (LTG) Decrease Oswestry disability index score to 20% with patient able to return to work LTG Duration 2 months Assessment Summary Assessment Good tolerance for progression of ther ex with improved A/P pendulums. Physical Therapy Plan Frequency and Duration Frequency of Treatment 2x/Week Duration of Treatment 12 visits Plan of Care Start Date 06/22/18 Plan of Care End Date 08/22/18 Next Visit Focus/Plan Next Note Type Treatment Note Next Visit Plan Continue to progress aquatic exercise and transition to land-based PT as visits become available.
--- NOTE | 2018-07-11 15:26 | PT.OTN ---
Current Diagnoses Intervertebral disc disorders with radiculopathy, lumbar region (07/08/18) Other intervertebral disc degeneration, lumbosacral region (07/08/18) Sprain of ligaments of lumbar spine, subsequent encounter (07/08/18) Physical Therapy Treatment Note PT-OP-A Visit Information Start: 04/06/18 15:16 Freq: Status: Active Protocol: Document 07/11/18 12:30 LJ (Rec: 07/11/18 15:26 LJ [id number]) Out-Patient Physical Therapy Visit Information Visit Information Visit Type Aquatic Treatment Note Visit Start Time 12:30 Visit Stop Time 13:15 Total Visit Minutes 45 Visit Number 14 Number of CLINIC DIRECTOR Visits 1 PT-OP-B Current Condition Start: 04/06/18 15:16 Freq: Status: Active Protocol: Document 04/06/18 15:52 SAK (Rec: 04/06/18 16:28 SAK [id number]) Current Condition History of Current Condition Onset Date September 2017 Current Complaints low back pain with radicular symptoms History of Current Condition Patient reports gradual worsening of LBP starting in September 2017, no known cause. Reports during a work shift her pain gradually worsened, severe pain that night. Hasn' t been able to work since. 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 At this time patient reports employer not willing to do any accomodation of light duty, shorter shifts, etc. Prior to exacerbation of pain September 2017 patient reports she was working 4 days per week. Long history LBP, history of knee injury with resulting complex regional pain syndrome left knee. Starting accupuncture trial today through L&I. Previously seen by this PT for aquatic PT. Patient unable to do aquatic exercise independently due to cost. Treatment Goals Patient/Caregiver Goals Decrease pain, improve activity tolerance including ability to return to work. Prior Functional Status Baseline Function- ADL's Independent Baseline Function- Mobility Independent Baseline Function- Gait indep no device Baseline Function- Work/School working 4 days per week Baseline Function- Recreation/Hobbies minimal Current Functional Impairments (Reported) Functional Limitations- ADL's painful Functional Limitations- Mobility/Gait painful Functional Limitations- Work/School unable due to pain Functional Limitations- Recreation/ painful Hobbies Personal Factors Other Personal Factors That May Effect Patient smokes 1/2 to 1 pack Therapy/Recovery per day PT-OP-C Subjective Start: 04/06/18 15:16 Freq: Status: Active Protocol: Document 07/11/18 12:30 LJ (Rec: 07/11/18 15:26 LJ [id number]) OP-PT Subjective Patient Comments Patient Comments States she is having an injection 07/12/18. States she was sore for the weekend after Wednesday aquatic session. She wanted to take it easier today so as not to be so tight before the injection. PT-OP-G Mobility & Gait Start: 04/06/18 15:16 Freq: Status: Active Protocol: Document 04/06/18 15:52 SAK (Rec: 04/06/18 16:28 SAK [id number]) OP Gait Assessment Gait Deviations General Gait Pattern Antalgic Wide Based Gait Comments Gait Comments Increased ER bilateral LE's PT-OP-J Posture/Palpation/Skin Start: 04/06/18 15:16 Freq: Status: Active Protocol: Document 04/06/18 15:52 SAK (Rec: 04/06/18 16:28 SAK [id number]) Posture Evaluation Position Standing Head/C-Spine Posture Forward Head T-Spine Posture Increased Kyphosis L-Spine Posture Flattened Palpation Assessment Location bilateral lumbar spine Palpation Findings Soft Tissue Tightness Muscle Guarding PT-OP-K Range of Motion Start: 04/06/18 15:16 Freq: Status: Active Protocol: Document 04/06/18 15:52 SAK (Rec: 04/06/18 16:28 SAK [id number]) Lumbar Spine Range of Motion Lumbar Spine Active Testing Position Standing Flexion 70 Extension 0 Rotation Left 20 Rotation Right 20 Lateral Flexion Left 10 Lateral Flexion Right 20 ROM Limitations Soft Tissue Tightness Pain Comments flexion occurs at hips, not lumbar spine Hip Goniometric Range of Motion Hip Measured in Degrees rahul Hip ROM WFL Yes Hip ROM Limitations Comments patient hypermobile Knee Goniometric Range of Motion Knee Measured in Degrees rahul Knee ROM WFL Yes Ankle and Foot Goniometric Range of Motion Ankle and Foot Measured in Degrees rahul Ankle/Foot ROM WFL Yes PT-OP-L Special Tests Start: 04/06/18 15:16 Freq: Status: Active Protocol: Document 04/06/18 15:52 SAK (Rec: 04/06/18 16:28 SAK [id number]) Special Tests Lumbar Spine Special Tests Prone Press Up Test Results unable Straight Leg Raise Test Results positive rahul Neural Special Tests- Lower Body Sciatic Nerve Tension Test Results positive rahul PT-OP-M Strength Start: 04/06/18 15:16 Freq: Status: Active Protocol: Document 04/06/18 15:52 SAK (Rec: 04/06/18 16:28 SAK [id number]) Trunk Strength Trunk Manual Muscle Testing Core Stabilization fair Reason Not Measured Pain Hip Strength Hip Manual Muscle Testing Left Flexion (L2) 4- Good- Abduction 4- Good- External Rotation 4- Good- Internal Rotation 4 Good Comments back pain with all resisted motions Right Flexion (L2) 4 Good Abduction 4 Good External Rotation 4- Good- Internal Rotation 4- Good- Comments back pain with all resisted motions Knee Strength Knee Manual Muscle Testing Left Flexion (S2) 4- Good- Extension (L3) 4 Good Comments painful Right Flexion (S2) 4+ Good+ Extension (L3) 4+ Good+ Ankle/Foot Strength Ankle and Foot Manual Muscle Testing Left Dorsiflexion (L4) 4+ Good+ Plantarflexion (S1) 4+ Good+ Right Dorsiflexion (L4) 4+ Good+ Plantarflexion (S1) 4+ Good+ Toe Strength Toe Manual Muscle Testing Left Great Toe Flexion 4+ Good+ Extension 4+ Good+ Right Great Toe Flexion 4+ Good+ Extension 4+ Good+ PT-OP-Q Treatments Start: 04/06/18 15:16 Freq: Status: Active Protocol: Document 04/06/18 15:[address] [facility] (Rec: 04/06/18 16:[address] [facility] [id number]) Self-Care/Home Management Treatment Education Patient Education Home Exercise Program Other Education keep track of walking, gradually progressing distance /time Activities Self-Care/Home Management Activities use of heat PT-OP-S Aquatic Treatment Start: 04/06/18 15:16 Freq: Status: Active Protocol: Document 07/11/18 12:30 LJ (Rec: 07/11/18 15:26 LJ [id number]) Aquatics Treatment Pool Entry/Exit Pool Entry/Exit Method Stairs Assistance Independent Upper Extremity Exercises lateral pull downs w/lg buoys Water Level [place] Reps/Duration 10x Heath Activities Heath Activities Bicycle Bicycle Backwards Cross [place] Running Hip Abduction/Adduction Sit Kicks Other Activities bicycle with arms at sides holding barbells submerged deep water DLS: med barbells. Progressed side pendulums with isometric hold with lower leg lowering and raising. Duration 30 min Manual Techniques [place] Passive for lumbar flexibility and relaxation WATSU for muscle relaxation, pain and pain management. (no hip or trunk rotation) [ End ] PT-OP-T Assessment and Plan Start: 04/06/18 15:16 Freq: Status: Active Protocol: Document 07/11/18 12:30 WILLIAM (Rec: 07/11/18 15:26 LJ [id number]) Physical Therapy Assessment Goals activity tolerance Impairment activity tolerance Nursing Home Goal (LTG) Patient able to tolerate 45 min aquatic ex program without an increase in pain 06/22/18: goal progress, sessions end with manual techniques for muscle relaxation and pain management which patient is not able to do on her own. Will need to progress to aquatic ex only to see how patient chelsie. LTG Duration 2 months 4 Impairment Strength Nursing Home Goal (LTG) Improve strength bilateral LE' s and trunk to at least 4+/5 06/22/18: goal progress, though reports pain with all resisted motions in trunk and hips, difficulty stabilizing core during testing LTG Duration 2 months 3 Impairment ROM Nursing Home Goal (LTG) Improve lumbar ROM to WNL (06/01/18: had been making good progress, but muscle spasm limited all ROM today) 06/22/18: goal progress all motions except spinal extension poor tolerance due to pain. LTG Duration 2 months 2 Impairment LBP as high as 7/10 Short Term Goal (STG) Decrease LBP to no greater than 5/10 with usual activities (06/01/18: had been making good progress, but activity very limited today due to muscle spasm) 06/22/18: not seen since 06/01/18 due to PT schedule and patient having dental work. 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 No complaints of pain or fatigue Physical Therapy Plan Next Visit Focus/Plan Next Note Type Treatment Note Next Visit Plan Continue to progress aquatic exercise as tolerated. Transition to land-based PT as visits become available.
--- NOTE | 2018-07-15 14:53 | PT.OTN ---
Current Diagnoses Intervertebral disc disorders with radiculopathy, lumbar region (07/15/18) Other intervertebral disc degeneration, lumbosacral region (07/15/18) Sprain of ligaments of lumbar spine, subsequent encounter (07/15/18) Physical Therapy Treatment Note PT-OP-A Visit Information Start: 04/06/18 15:16 Freq: Status: Active Protocol: Document 07/15/18 14:47 SAK (Rec: 07/15/18 14:53 SAK [id number]) Out-Patient Physical Therapy Visit Information Visit Information Visit Type Aquatic Treatment Note Visit Start Time 11:45 Visit Stop Time 12:30 Total Visit Minutes 45 Visit Number 15 Number of COUNTER HOP Visits 0 PT-OP-B Current Condition Start: 04/06/18 15:16 Freq: Status: Active Protocol: Document 04/06/18 15:52 SAK (Rec: 04/06/18 16:28 SAK [id number]) Current Condition History of Current Condition Onset Date September 2017 Current Complaints low back pain with radicular symptoms History of Current Condition Patient reports gradual worsening of LBP starting in September 2017, no known cause. Reports during a work shift her pain gradually worsened, severe pain that night. Hasn' t been able to work since. 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 At this time patient reports employer not willing to do any accomodation of light duty, shorter shifts, etc. Prior to exacerbation of pain September 2017 patient reports she was working 4 days per week. Long history LBP, history of knee injury with resulting complex regional pain syndrome left knee. Starting accupuncture trial today through L&I. Previously seen by this PT for aquatic PT. Patient unable to do aquatic exercise independently due to cost. Treatment Goals Patient/Caregiver Goals Decrease pain, improve activity tolerance including ability to return to work. Prior Functional Status Baseline Function- ADL's Independent Baseline Function- Mobility Independent Baseline Function- Gait indep no device Baseline Function- Work/School working 4 days per week Baseline Function- Recreation/Hobbies minimal Current Functional Impairments (Reported) Functional Limitations- ADL's painful Functional Limitations- Mobility/Gait painful Functional Limitations- Work/School unable due to pain Functional Limitations- Recreation/ painful Hobbies Personal Factors Other Personal Factors That May Effect Patient smokes 1/2 to 1 pack Therapy/Recovery per day PT-OP-C Subjective Start: 04/06/18 15:16 Freq: Status: Active Protocol: Document 07/15/18 14:47 [facility] (Rec: 07/15/18 14:53 [facility] [id number]) OP-PT Subjective Patient Comments Patient Comments Had injection 07/12/18, pain dec to 05/01. Physician instructed gentle activity. PT-OP-G Mobility & Gait Start: 04/06/18 15:16 Freq: Status: Active Protocol: Document 04/06/18 15:52 [facility] (Rec: 04/06/18 16:28 [facility] [id number]) OP Gait Assessment Gait Deviations General Gait Pattern Antalgic Wide Based Gait Comments Gait Comments Increased ER bilateral LE's PT-OP-J Posture/Palpation/Skin Start: 04/06/18 15:16 Freq: Status: Active Protocol: Document 04/06/18 15:52 [facility] (Rec: 04/06/18 16:28 [facility] [id number]) Posture Evaluation Position Standing Head/C-Spine Posture Forward Head T-Spine Posture Increased Kyphosis L-Spine Posture Flattened Palpation Assessment Location bilateral lumbar spine Palpation Findings Soft Tissue Tightness Muscle Guarding PT-OP-K Range of Motion Start: 04/06/18 15:16 Freq: Status: Active Protocol: Document 04/06/18 15:52 [facility] (Rec: 04/06/18 16:28 [facility] [id number]) Lumbar Spine Range of Motion Lumbar Spine Active Testing Position Standing Flexion 70 Extension 0 Rotation Left 20 Rotation Right 20 Lateral Flexion Left 10 Lateral Flexion Right 20 ROM Limitations Soft Tissue Tightness Pain Comments flexion occurs at hips, not lumbar spine Hip Goniometric Range of Motion Hip Measured in Degrees rahul Hip ROM WFL Yes Hip ROM Limitations Comments patient hypermobile Knee Goniometric Range of Motion Knee Measured in Degrees rahul Knee ROM WFL Yes Ankle and Foot Goniometric Range of Motion Ankle and Foot Measured in Degrees rahul Ankle/Foot ROM WFL Yes PT-OP-L Special Tests Start: 04/06/18 15:16 Freq: Status: Active Protocol: Document 04/06/18 15:52 [facility] (Rec: 04/06/18 16:28 [facility] [id number]) Special Tests Lumbar Spine Special Tests Prone Press Up Test Results unable Straight Leg Raise Test Results positive rahul Neural Special Tests- Lower Body Sciatic Nerve Tension Test Results positive rahul PT-OP-M Strength Start: 04/06/18 15:16 Freq: Status: Active Protocol: Document 04/06/18 15:52 [facility] (Rec: 04/06/18 16:28 [facility] [id number]) Trunk Strength Trunk Manual Muscle Testing Core Stabilization fair Reason Not Measured Pain Hip Strength Hip Manual Muscle Testing Left Flexion (L2) 4- Good- Abduction 4- Good- External Rotation 4- Good- Internal Rotation 4 Good Comments back pain with all resisted motions Right Flexion (L2) 4 Good Abduction 4 Good External Rotation 4- Good- Internal Rotation 4- Good- Comments back pain with all resisted motions Knee Strength Knee Manual Muscle Testing Left Flexion (S2) 4- Good- Extension (L3) 4 Good Comments painful Right Flexion (S2) 4+ Good+ Extension (L3) 4+ Good+ Ankle/Foot Strength Ankle and Foot Manual Muscle Testing Left Dorsiflexion (L4) 4+ Good+ Plantarflexion (S1) 4+ Good+ Right Dorsiflexion (L4) 4+ Good+ Plantarflexion (S1) 4+ Good+ Toe Strength Toe Manual Muscle Testing Left Great Toe Flexion 4+ Good+ Extension 4+ Good+ Right Great Toe Flexion 4+ Good+ Extension 4+ Good+ PT-OP-Q Treatments Start: 04/06/18 15:16 Freq: Status: Active Protocol: Document 04/06/18 15:52 [facility] (Rec: 04/06/18 16:28 [facility] [id number]) Self-Care/Home Management Treatment Education Patient Education Home Exercise Program Other Education keep track of walking, gradually progressing distance /time Activities Self-Care/Home Management Activities use of heat PT-OP-S Aquatic Treatment Start: 04/06/18 15:16 Freq: Status: Active Protocol: Document 07/15/18 14:47 [facility] (Rec: 07/15/18 14:53 [facility] [id number]) Aquatics Treatment Pool Entry/Exit Pool Entry/Exit Method Stairs Assistance Independent Lower Extremity Stretches piriformis stretch Body Position Standing Water Level Chest Level Comments large noodle DKTC, SKTC Water Level [place] Reps/Duration 2x Comments wall HS Water Level [place] Reps/Duration 2 Comments wall, shallow with large noodle [place] Activities [place] Activities Bicycle Cross [place] Other Activities Gentle deep water DLS Comments decreased speed, emphasis on core stab Manual Techniques [place]az Passive for lumbar flexibility and relaxation WATSU for muscle relaxation, pain and pain management. (no hip or trunk rotation) [ End ] PT-OP-T Assessment and Plan Start: 04/06/18 15:16 Freq: Status: Active Protocol: Document 07/15/18 14:47 [facility] (Rec: 07/15/18 14:53 [facility] [id number]) Physical Therapy Assessment Goals activity tolerance Impairment activity tolerance [facility] Goal (LTG) Patient able to tolerate 45 min aquatic ex program without an increase in pain 06/22/18: goal progress, sessions end with manual techniques for muscle relaxation and pain management which patient is not able to do on her own. Will need to progress to aquatic ex only to see how patient chelsie. LTG Duration 2 months 4 Impairment Strength [facility] Goal (LTG) Improve strength bilateral LE' s and trunk to at least 4+/5 06/22/18: goal progress, though reports pain with all resisted motions in trunk and hips, difficulty stabilizing core during testing LTG Duration 2 months 3 Impairment ROM Alcohol Rubber Goal (LTG) Improve lumbar ROM to WNL (06/01/18: had been making good progress, but muscle spasm limited all ROM today) 06/22/18: goal progress all motions except spinal extension poor tolerance due to pain. LTG Duration 2 months 2 Impairment LBP as high as 7/10 Short Term Goal (STG) Decrease LBP to no greater than 5/10 with usual activities (06/01/18: had been making good progress, but activity very limited today due to muscle spasm) 06/22/18: not seen since 06/01/18 due to PT schedule and patient having dental work. Patient pain worsened back to at least 7/10 STG Duration 1 month [facility] Goal (LTG) Decrease pain to no greater than 3/10 (06/22/18: as above) LTG Duration 2 months 1 Impairment Oswestry disability index score 40% Short Term Goal (STG) Decrease Oswestry disability index score to 30% (06/01/18: again making good progress overall until today) STG Duration 1 month [facility] Goal (LTG) Decrease Oswestry disability index score to 20% with patient able to return to work LTG Duration 2 months Assessment Summary Assessment Cristela pleased with decrease in pain, hoping to get back to work next week. Cues for decreased intensity this session per physician order. She is highly motivated to return to work. Continues to attend PT sessions consistently, arriving early. Physical Therapy Plan Frequency and Duration Frequency of Treatment 2x/Week Duration of Treatment 12 visits Plan of Care Start Date 06/22/18 Plan of Care End Date 08/22/18 Therapeutic Interventions Therapeutic Interventions Aquatic Therapy Patient/Caregiver Education Self-Care/Home Management Next Visit Focus/Plan Next Note Type Treatment Note Next Visit Plan Transitioning to land-based PT as tolerated when appointments available.
--- NOTE | 2018-07-20 15:22 | PT.OTN ---
Current Diagnoses Intervertebral disc disorders with radiculopathy, lumbar region (07/20/18) Other intervertebral disc degeneration, lumbosacral region (07/20/18) Sprain of ligaments of lumbar spine, subsequent encounter (07/20/18) Physical Therapy Treatment Note PT-OP-A Visit Information Start: 04/06/18 15:16 Freq: Status: Active Protocol: Document 07/20/18 11:45 LJ (Rec: 07/20/18 15:22 LJ [id number]) Out-Patient Physical Therapy Visit Information Visit Information Visit Type Aquatic Treatment Note Visit Start Time 11:45 Visit Stop Time 12:30 Total Visit Minutes 45 Visit Number 16 Number of PAYMENT POSTER Visits 1 PT-OP-B Current Condition Start: 04/06/18 15:16 Freq: Status: Active Protocol: Document 04/06/18 15:52 SAK (Rec: 04/06/18 16:28 SAK [id number]) Current Condition History of Current Condition Onset Date September 2017 Current Complaints low back pain with radicular symptoms History of Current Condition Patient reports gradual worsening of LBP starting in September 2017, no known cause. Reports during a work shift her pain gradually worsened, severe pain that night. Hasn' t been able to work since. 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 At this time patient reports employer not willing to do any accomodation of light duty, shorter shifts, etc. Prior to exacerbation of pain September 2017 patient reports she was working 4 days per week. Long history LBP, history of knee injury with resulting complex regional pain syndrome left knee. Starting accupuncture trial today through L&I. Previously seen by this PT for aquatic PT. Patient unable to do aquatic exercise independently due to cost. Treatment Goals Patient/Caregiver Goals Decrease pain, improve activity tolerance including ability to return to work. Prior Functional Status Baseline Function- ADL's Independent Baseline Function- Mobility Independent Baseline Function- Gait indep no device Baseline Function- Work/School working 4 days per week Baseline Function- Recreation/Hobbies minimal Current Functional Impairments (Reported) Functional Limitations- ADL's painful Functional Limitations- Mobility/Gait painful Functional Limitations- Work/School unable due to pain Functional Limitations- Recreation/ painful Hobbies Personal Factors Other Personal Factors That May Effect Patient smokes 1/2 to 1 pack Therapy/Recovery per day PT-OP-C Subjective Start: 04/06/18 15:16 Freq: Status: Active Protocol: Document 07/20/18 11:45 LJ (Rec: 07/20/18 15:22 LJ [id number]) OP-PT Subjective Patient Comments Patient Comments Pt feeling better with injection. States she will work harder this session. PT-OP-G Mobility & Gait Start: 04/06/18 15:16 Freq: Status: Active Protocol: Document 04/06/18 15:52 SAK (Rec: 04/06/18 16:28 SAK [id number]) OP Gait Assessment Gait Deviations General Gait Pattern Antalgic Wide Based Gait Comments Gait Comments Increased ER bilateral LE's PT-OP-J Posture/Palpation/Skin Start: 04/06/18 15:16 Freq: Status: Active Protocol: Document 04/06/18 15:52 SAK (Rec: 04/06/18 16:28 SAK [id number]) Posture Evaluation Position Standing Head/C-Spine Posture Forward Head T-Spine Posture Increased Kyphosis L-Spine Posture Flattened Palpation Assessment Location bilateral lumbar spine Palpation Findings Soft Tissue Tightness Muscle Guarding PT-OP-K Range of Motion Start: 04/06/18 15:16 Freq: Status: Active Protocol: Document 04/06/18 15:52 SAK (Rec: 04/06/18 16:28 SAK [id number]) Lumbar Spine Range of Motion Lumbar Spine Active Testing Position Standing Flexion 70 Extension 0 Rotation Left 20 Rotation Right 20 Lateral Flexion Left 10 Lateral Flexion Right 20 ROM Limitations Soft Tissue Tightness Pain Comments flexion occurs at hips, not lumbar spine Hip Goniometric Range of Motion Hip Measured in Degrees rahul Hip ROM WFL Yes Hip ROM Limitations Comments patient hypermobile Knee Goniometric Range of Motion Knee Measured in Degrees rahul Knee ROM WFL Yes Ankle and Foot Goniometric Range of Motion Ankle and Foot Measured in Degrees rahul Ankle/Foot ROM WFL Yes PT-OP-L Special Tests Start: 04/06/18 15:16 Freq: Status: Active Protocol: Document 04/06/18 15:52 SAK (Rec: 04/06/18 16:28 SAK [id number]) Special Tests Lumbar Spine Special Tests Prone Press Up Test Results unable Straight Leg Raise Test Results positive rahul Neural Special Tests- Lower Body Sciatic Nerve Tension Test Results positive rahul PT-OP-M Strength Start: 04/06/18 15:16 Freq: Status: Active Protocol: Document 04/06/18 15:52 [facility] (Rec: 04/06/18 16:28 SAK [id number]) Trunk Strength Trunk Manual Muscle Testing Core Stabilization fair Reason Not Measured Pain Hip Strength Hip Manual Muscle Testing Left Flexion (L2) 4- Good- Abduction 4- Good- External Rotation 4- Good- Internal Rotation 4 Good Comments back pain with all resisted motions Right Flexion (L2) 4 Good Abduction 4 Good External Rotation 4- Good- Internal Rotation 4- Good- Comments back pain with all resisted motions Knee Strength Knee Manual Muscle Testing Left Flexion (S2) 4- Good- Extension (L3) 4 Good Comments painful Right Flexion (S2) 4+ Good+ Extension (L3) 4+ Good+ Ankle/Foot Strength Ankle and Foot Manual Muscle Testing Left Dorsiflexion (L4) 4+ Good+ Plantarflexion (S1) 4+ Good+ Right Dorsiflexion (L4) 4+ Good+ Plantarflexion (S1) 4+ Good+ Toe Strength Toe Manual Muscle Testing Left Great Toe Flexion 4+ Good+ Extension 4+ Good+ Right Great Toe Flexion 4+ Good+ Extension 4+ Good+ PT-OP-Q Treatments Start: 04/06/18 15:16 Freq: Status: Active Protocol: Document 04/06/18 15:52 [facility] (Rec: 04/06/18 16:28 [facility] [id number]) Self-Care/Home Management Treatment Education Patient Education Home Exercise Program Other Education keep track of walking, gradually progressing distance /time Activities Self-Care/Home Management Activities use of heat PT-OP-S Aquatic Treatment Start: 04/06/18 15:16 Freq: Status: Active Protocol: Document 07/20/18 11:45 WILLIAM (Rec: 07/20/18 15:22 LJ [id number]) Aquatics Treatment Pool Entry/Exit Pool Entry/Exit Method Stairs Assistance Independent Lower Extremity Exercises circles Details CW and CCW Body Position Standing Reps/Duration 10x ea hip ab/ad, flex/ext Body Position Standing Water Level Chest Level Reps/Duration 10xea Lower Extremity Stretches piriformis stretch Body Position Standing Water Level Chest Level Comments large noodle DKTC, SKTC Water Level [place] Reps/Duration 2x Comments wall HS Water Level [place] Reps/Duration 2 Comments wall, shallow with large noodle Upper Extremity Exercises lateral pull downs w/lg buoys Water Level [place] Reps/Duration 10x hor ab/ad, flex/ext Details DLS emphasis, rahul and unil Body Position Standing Water Level Chest Level Reps/Duration 10x ea [place] Activities [place] Activities Bicycle [place] Running Hip Abduction/Adduction Other Activities bicycle with arms at sides holding barbells submerged. side pendulums with isometric hold with lower leg lowering and raising. Plank with BBs held underwater PT-OP-T Assessment and Plan Start: 04/06/18 15:16 Freq: Status: Active Protocol: Document 07/20/18 11:45 WILLIAM (Rec: 07/20/18 15:22 LJ [id number]) Physical Therapy Assessment Goals activity tolerance Impairment activity tolerance Senior Care Goal (LTG) Patient able to tolerate 45 min aquatic ex program without an increase in pain 06/22/18: goal progress, sessions end with manual techniques for muscle relaxation and pain management which patient is not able to do on her own. Will need to progress to aquatic ex only to see how patient chelsie. LTG Duration 2 months 4 Impairment Strength Senior Care Goal (LTG) Improve strength bilateral LE' s and trunk to at least 4+/5 06/22/18: goal progress, though reports pain with all resisted motions in trunk and hips, difficulty stabilizing core during testing LTG Duration 2 months 3 Impairment ROM Senior Care Goal (LTG) Improve lumbar ROM to WNL (06/01/18: had been making good progress, but muscle spasm limited all ROM today) 06/22/18: goal progress all motions except spinal extension poor tolerance due to pain. LTG Duration 2 months 2 Impairment LBP as high as 7/10 Short Term Goal (STG) Decrease LBP to no greater than 5/10 with usual activities (06/01/18: had been making good progress, but activity very limited today due to muscle spasm) 06/22/18: not seen since 06/01/18 due to PT schedule and patient having dental work. Patient pain worsened back to at least 7/10 STG Duration 1 month Senior Care Goal (LTG) Decrease pain to no greater than 3/10 (06/22/18: as above) LTG Duration 2 months 1 Impairment Oswestry disability index score 40% Short Term Goal (STG) Decrease Oswestry disability index score to 30% (06/01/18: again making good progress overall until today) STG Duration 1 month Economic Historian Goal (LTG) Decrease Oswestry disability index score to 20% with patient able to return to work LTG Duration 2 months Assessment Summary Assessment Pt demonstrated ability to perform self-guided exercises and unwilling to perform other suggested beneficial exercises in deep water. Pt appropriate for aquatic HEP. Physical Therapy Plan Frequency and Duration Frequency of Treatment 2x/Week Duration of Treatment 12 visits Plan of Care Start Date 06/22/18 Plan of Care End Date 08/22/18 Therapeutic Interventions Therapeutic Interventions Aquatic Therapy Patient/Caregiver Education Self-Care/Home Management Next Visit Focus/Plan Next Note Type Treatment Note Next Visit Plan Transitioning to land-based PT as tolerated when appointments available.
--- NOTE | 2018-07-22 15:25 | PT.OTN ---
Current Diagnoses Intervertebral disc disorders with radiculopathy, lumbar region (07/22/18) Other intervertebral disc degeneration, lumbosacral region (07/22/18) Sprain of ligaments of lumbar spine, subsequent encounter (07/22/18) Physical Therapy Treatment Note PT-OP-A Visit Information Start: 04/06/18 15:16 Freq: Status: Active Protocol: Document 07/22/18 15:19 SAK (Rec: 07/22/18 15:25 SAK [id number]) Out-Patient Physical Therapy Visit Information Visit Information Visit Type Aquatic Treatment Note Visit Start Time 12:30 Visit Stop Time 13:20 Total Visit Minutes 45 Visit Number 17 Number of LINSEED OIL REFINER Visits 0 PT-OP-B Current Condition Start: 04/06/18 15:16 Freq: Status: Active Protocol: Document 04/06/18 15:52 SAK (Rec: 04/06/18 16:28 SAK [id number]) Current Condition History of Current Condition Onset Date September 2017 Current Complaints low back pain with radicular symptoms History of Current Condition Patient reports gradual worsening of LBP starting in September 2017, no known cause. Reports during a work shift her pain gradually worsened, severe pain that night. Hasn' t been able to work since. 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 At this time patient reports employer not willing to do any accomodation of light duty, shorter shifts, etc. Prior to exacerbation of pain September 2017 patient reports she was working 4 days per week. Long history LBP, history of knee injury with resulting complex regional pain syndrome left knee. Starting accupuncture trial today through L&I. Previously seen by this PT for aquatic PT. Patient unable to do aquatic exercise independently due to cost. Treatment Goals Patient/Caregiver Goals Decrease pain, improve activity tolerance including ability to return to work. Prior Functional Status Baseline Function- ADL's Independent Baseline Function- Mobility Independent Baseline Function- Gait indep no device Baseline Function- Work/School working 4 days per week Baseline Function- Recreation/Hobbies minimal Current Functional Impairments (Reported) Functional Limitations- ADL's painful Functional Limitations- Mobility/Gait painful Functional Limitations- Work/School unable due to pain Functional Limitations- Recreation/ painful Hobbies Personal Factors Other Personal Factors That May Effect Patient smokes 1/2 to 1 pack Therapy/Recovery per day PT-OP-C Subjective Start: 04/06/18 15:16 Freq: Status: Active Protocol: Document 07/22/18 15:19 [facility] (Rec: 07/22/18 15:25 [facility] [id number]) OP-PT Subjective Patient Comments Patient Comments Reports she feels like she may be getting her son's cold, very tired. C/o increased soreness and pain after last PT session, cold from pool temperature taking rest of day to warm up. PT-OP-G Mobility & Gait Start: 04/06/18 15:16 Freq: Status: Active Protocol: Document 04/06/18 15:52 [facility] (Rec: 04/06/18 16:28 [facility] [id number]) OP Gait Assessment Gait Deviations General Gait Pattern Antalgic Wide Based Gait Comments Gait Comments Increased ER bilateral LE's PT-OP-J Posture/Palpation/Skin Start: 04/06/18 15:16 Freq: Status: Active Protocol: Document 04/06/18 15:52 [facility] (Rec: 04/06/18 16:28 [facility] [id number]) Posture Evaluation Position Standing Head/C-Spine Posture Forward Head T-Spine Posture Increased Kyphosis L-Spine Posture Flattened Palpation Assessment Location bilateral lumbar spine Palpation Findings Soft Tissue Tightness Muscle Guarding PT-OP-K Range of Motion Start: 04/06/18 15:16 Freq: Status: Active Protocol: Document 04/06/18 15:52 [facility] (Rec: 04/06/18 16:28 [facility] [id number]) Lumbar Spine Range of Motion Lumbar Spine Active Testing Position Standing Flexion 70 Extension 0 Rotation Left 20 Rotation Right 20 Lateral Flexion Left 10 Lateral Flexion Right 20 ROM Limitations Soft Tissue Tightness Pain Comments flexion occurs at hips, not lumbar spine Hip Goniometric Range of Motion Hip Measured in Degrees rahul Hip ROM WFL Yes Hip ROM Limitations Comments patient hypermobile Knee Goniometric Range of Motion Knee Measured in Degrees rahul Knee ROM WFL Yes Ankle and Foot Goniometric Range of Motion Ankle and Foot Measured in Degrees rahul Ankle/Foot ROM WFL Yes PT-OP-L Special Tests Start: 04/06/18 15:16 Freq: Status: Active Protocol: Document 04/06/18 15:52 [facility] (Rec: 04/06/18 16:28 [facility] [id number]) Special Tests Lumbar Spine Special Tests Prone Press Up Test Results unable Straight Leg Raise Test Results positive rahul Neural Special Tests- Lower Body Sciatic Nerve Tension Test Results positive rahul PT-OP-M Strength Start: 04/06/18 15:16 Freq: Status: Active Protocol: Document 04/06/18 15:52 [facility] (Rec: 04/06/18 16:28 [facility] [id number]) Trunk Strength Trunk Manual Muscle Testing Core Stabilization fair Reason Not Measured Pain Hip Strength Hip Manual Muscle Testing Left Flexion (L2) 4- Good- Abduction 4- Good- External Rotation 4- Good- Internal Rotation 4 Good Comments back pain with all resisted motions Right Flexion (L2) 4 Good Abduction 4 Good External Rotation 4- Good- Internal Rotation 4- Good- Comments back pain with all resisted motions Knee Strength Knee Manual Muscle Testing Left Flexion (S2) 4- Good- Extension (L3) 4 Good Comments painful Right Flexion (S2) 4+ Good+ Extension (L3) 4+ Good+ Ankle/Foot Strength Ankle and Foot Manual Muscle Testing Left Dorsiflexion (L4) 4+ Good+ Plantarflexion (S1) 4+ Good+ Right Dorsiflexion (L4) 4+ Good+ Plantarflexion (S1) 4+ Good+ Toe Strength Toe Manual Muscle Testing Left Great Toe Flexion 4+ Good+ Extension 4+ Good+ Right Great Toe Flexion 4+ Good+ Extension 4+ Good+ PT-OP-Q Treatments Start: 04/06/18 15:16 Freq: Status: Active Protocol: Document 04/06/18 15:52 [facility] (Rec: 04/06/18 16:28 [facility] [id number]) Self-Care/Home Management Treatment Education Patient Education Home Exercise Program Other Education keep track of walking, gradually progressing distance /time Activities Self-Care/Home Management Activities use of heat PT-OP-S Aquatic Treatment Start: 04/06/18 15:16 Freq: Status: Active Protocol: Document 07/22/18 15:19 [facility] (Rec: 07/22/18 15:25 [facility] [id number]) Aquatics Treatment Pool Entry/Exit Pool Entry/Exit Method Stairs Assistance Independent Water Walking quick reverses walk Water Level Chest Level Comments for core engagement Lower Extremity Exercises step-ups Equipment 8 boxes Reps/Duration 10x Lower Extremity Stretches piriformis stretch Body Position Standing Water Level Chest Level Comments large noodle DKTC, SKTC Water Level [place] Reps/Duration 2x Comments wall HS Water Level [place] Reps/Duration 2 Comments wall, shallow with large noodle Upper Extremity Exercises forward pull downs Body Position Standing Water Level Chest Level Equipment med barbells Reps/Duration 12x Comments DLS emphasis hor ab/ad, flex/ext Details DLS emphasis, rahul and unil Body Position Standing Water Level Chest Level Reps/Duration 10x ea [place] Activities [place] Activities Bicycle Cross [place] Running Hip Abduction/Adduction Sit Kicks Other Activities bicycle with arms at sides holding barbells submerged. side pendulums with isometric hold with lower leg lowering and raising. Plank with BBs held underwater Comments 11 rounds intervals Manual Techniques [place] Passive for lumbar flexibility and relaxation WATSU for muscle relaxation, pain and pain management. (no hip or trunk rotation) [ End ] Aquatic Joint Mobilizations counternutation of sacrum Aquatic Massage for decreased paraspinal and buttock pain. PT-OP-T Assessment and Plan Start: 04/06/18 15:16 Freq: Status: Active Protocol: Document 07/22/18 15:19 [facility] (Rec: 07/22/18 15:25 [facility] [id number]) Physical Therapy Assessment Goals activity tolerance Impairment activity tolerance Fpc Goal (LTG) Patient able to tolerate 45 min aquatic ex program without an increase in pain 06/22/18: goal progress, sessions end with manual techniques for muscle relaxation and pain management which patient is not able to do on her own. Will need to progress to aquatic ex only to see how patient chelsie. LTG Duration 2 months 4 Impairment Strength Fpc Goal (LTG) Improve strength bilateral LE' s and trunk to at least 4+/5 06/22/18: goal progress, though reports pain with all resisted motions in trunk and hips, difficulty stabilizing core during testing LTG Duration 2 months 3 Impairment ROM Java Software Engineer Goal (LTG) Improve lumbar ROM to WNL (06/01/18: had been making good progress, but muscle spasm limited all ROM today) 06/22/18: goal progress all motions except spinal extension poor tolerance due to pain. LTG Duration 2 months 2 Impairment LBP as high as 7/10 Short Term Goal (STG) Decrease LBP to no greater than 5/10 with usual activities (06/01/18: had been making good progress, but activity very limited today due to muscle spasm) 06/22/18: not seen since 06/01/18 due to PT schedule and patient having dental work. Patient pain worsened back to at least 7/10 STG Duration 1 month Fpc Goal (LTG) Decrease pain to no greater than 3/10 (06/22/18: as above) LTG Duration 2 months 1 Impairment Oswestry disability index score 40% Short Term Goal (STG) Decrease Oswestry disability index score to 30% (06/01/18: again making good progress overall until today) STG Duration 1 month Java Software Engineer Goal (LTG) Decrease Oswestry disability index score to 20% with patient able to return to work LTG Duration 2 months Assessment Summary Assessment Patient tolerated all ex well except c/o pain with step-ups, was unable to complete using right LE. Physical Therapy Plan Frequency and Duration Frequency of Treatment 2x/Week Duration of Treatment 12 visits Plan of Care Start Date 06/22/18 Plan of Care End Date 08/22/18 Therapeutic Interventions Therapeutic Interventions Aquatic Therapy Patient/Caregiver Education Self-Care/Home Management Next Visit Focus/Plan Next Note Type Treatment Note Next Visit Plan Continue PT per POC, aquatic and land-based PT.
--- NOTE | 2018-08-03 16:19 | PT.OTN ---
Current Diagnoses Intervertebral disc disorders with radiculopathy, lumbar region (08/03/18) Other intervertebral disc degeneration, lumbosacral region (08/03/18) Sprain of ligaments of lumbar spine, subsequent encounter (08/03/18) Physical Therapy Treatment Note PT-OP-A Visit Information Start: 04/06/18 15:16 Freq: Status: Active Protocol: Document 08/03/18 16:09 [facility] (Rec: 08/03/18 16:19 [facility] [id number]) Out-Patient Physical Therapy Visit Information Visit Information Visit Type Aquatic Treatment Note Visit Start Time 12:30 Visit Stop Time 13:15 Total Visit Minutes 45 Visit Number 18 Number of GUARD DANCE HALL Visits 0 PT-OP-B Current Condition Start: 04/06/18 15:16 Freq: Status: Active Protocol: Document 04/06/18 15:52 [facility] (Rec: 04/06/18 16:28 [facility] [id number]) Current Condition History of Current Condition Onset Date September 2017 Current Complaints low back pain with radicular symptoms History of Current Condition Patient reports gradual worsening of LBP starting in September 2017, no known cause. Reports during a work shift her pain gradually worsened, severe pain that night. Hasn' t been able to work since. 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 At this time patient reports employer not willing to do any accomodation of light duty, shorter shifts, etc. Prior to exacerbation of pain September 2017 patient reports she was working 4 days per week. Long history LBP, history of knee injury with resulting complex regional pain syndrome left knee. Starting accupuncture trial today through L&I. Previously seen by this PT for aquatic PT. Patient unable to do aquatic exercise independently due to cost. Treatment Goals Patient/Caregiver Goals Decrease pain, improve activity tolerance including ability to return to work. Prior Functional Status Baseline Function- ADL's Independent Baseline Function- Mobility Independent Baseline Function- Gait indep no device Baseline Function- Work/School working 4 days per week Baseline Function- Recreation/Hobbies minimal Current Functional Impairments (Reported) Functional Limitations- ADL's painful Functional Limitations- Mobility/Gait painful Functional Limitations- Work/School unable due to pain Functional Limitations- Recreation/ painful Hobbies Personal Factors Other Personal Factors That May Effect Patient smokes 1/2 to 1 pack Therapy/Recovery per day PT-OP-C Subjective Start: 04/06/18 15:16 Freq: Status: Active Protocol: Document 08/03/18 16:09 [facility] (Rec: 08/03/18 16:19 [facility] [id number]) OP-PT Subjective Patient Comments Patient Comments Apologized for missing her PT appointments last week, had bad cold. Better but still some symptoms. Also missed appointment with Dr. Saunders; next appt with him now 08/17/18 . PT-OP-G Mobility & Gait Start: 04/06/18 15:16 Freq: Status: Active Protocol: Document 04/06/18 15:52 [facility] (Rec: 04/06/18 16:28 [facility] [id number]) OP Gait Assessment Gait Deviations General Gait Pattern Antalgic Wide Based Gait Comments Gait Comments Increased ER bilateral LE's PT-OP-J Posture/Palpation/Skin Start: 04/06/18 15:16 Freq: Status: Active Protocol: Document 04/06/18 15:52 [facility] (Rec: 04/06/18 16:28 [facility] [id number]) Posture Evaluation Position Standing Head/C-Spine Posture Forward Head T-Spine Posture Increased Kyphosis L-Spine Posture Flattened Palpation Assessment Location bilateral lumbar spine Palpation Findings Soft Tissue Tightness Muscle Guarding PT-OP-K Range of Motion Start: 04/06/18 15:16 Freq: Status: Active Protocol: Document 04/06/18 15:52 [facility] (Rec: 04/06/18 16:28 [facility] [id number]) Lumbar Spine Range of Motion Lumbar Spine Active Testing Position Standing Flexion 70 Extension 0 Rotation Left 20 Rotation Right 20 Lateral Flexion Left 10 Lateral Flexion Right 20 ROM Limitations Soft Tissue Tightness Pain Comments flexion occurs at hips, not lumbar spine Hip Goniometric Range of Motion Hip Measured in Degrees rahul Hip ROM WFL Yes Hip ROM Limitations Comments patient hypermobile Knee Goniometric Range of Motion Knee Measured in Degrees rahul Knee ROM WFL Yes Ankle and Foot Goniometric Range of Motion Ankle and Foot Measured in Degrees rahul Ankle/Foot ROM WFL Yes PT-OP-L Special Tests Start: 04/06/18 15:16 Freq: Status: Active Protocol: Document 04/06/18 15:52 [facility] (Rec: 04/06/18 16:28 [facility] [id number]) Special Tests Lumbar Spine Special Tests Prone Press Up Test Results unable Straight Leg Raise Test Results positive rahul Neural Special Tests- Lower Body Sciatic Nerve Tension Test Results positive rahul PT-OP-M Strength Start: 04/06/18 15:16 Freq: Status: Active Protocol: Document 04/06/18 15:52 [facility] (Rec: 04/06/18 16:28 [facility] [id number]) Trunk Strength Trunk Manual Muscle Testing Core Stabilization fair Reason Not Measured Pain Hip Strength Hip Manual Muscle Testing Left Flexion (L2) 4- Good- Abduction 4- Good- External Rotation 4- Good- Internal Rotation 4 Good Comments back pain with all resisted motions Right Flexion (L2) 4 Good Abduction 4 Good External Rotation 4- Good- Internal Rotation 4- Good- Comments back pain with all resisted motions Knee Strength Knee Manual Muscle Testing Left Flexion (S2) 4- Good- Extension (L3) 4 Good Comments painful Right Flexion (S2) 4+ Good+ Extension (L3) 4+ Good+ Ankle/Foot Strength Ankle and Foot Manual Muscle Testing Left Dorsiflexion (L4) 4+ Good+ Plantarflexion (S1) 4+ Good+ Right Dorsiflexion (L4) 4+ Good+ Plantarflexion (S1) 4+ Good+ Toe Strength Toe Manual Muscle Testing Left Great Toe Flexion 4+ Good+ Extension 4+ Good+ Right Great Toe Flexion 4+ Good+ Extension 4+ Good+ PT-OP-Q Treatments Start: 04/06/18 15:16 Freq: Status: Active Protocol: Document 04/06/18 15:52 [facility] (Rec: 04/06/18 16:28 [facility] [id number]) Self-Care/Home Management Treatment Education Patient Education Home Exercise Program Other Education keep track of walking, gradually progressing distance /time Activities Self-Care/Home Management Activities use of heat PT-OP-S Aquatic Treatment Start: 04/06/18 15:16 Freq: Status: Active Protocol: Document 08/03/18 16:09 [facility] (Rec: 08/03/18 16:19 [facility] [id number]) Aquatics Treatment Pool Entry/Exit Pool Entry/Exit Method Stairs Assistance Independent Water Walking lung walk Walking Equipment 5# Level of Assistance Standby Assistance Verbal Cues Comments reported increased LBP quick reverses walk Water Level Chest Level Comments for core engagement Lower Extremity Exercises squats Body Position Standing Water Level Chest Level Equipment 5# Reps/Duration 10x2 Comments reported increased LBP step-ups Equipment 8 boxes Reps/Duration 10x Lower Extremity Stretches piriformis stretch Body Position Standing Water Level Chest Level Comments large noodle DKTC, SKTC Water Level [place] Reps/Duration 2x Comments wall HS Water Level [place] Reps/Duration 2 Comments wall, shallow with large noodle Upper Extremity Exercises hor ab/ad, flex/ext Details DLS emphasis, rahul and unil Body Position Standing Water Level Chest Level Equipment paddles closed Reps/Duration 10x ea [place] Activities [place] Activities Bicycle Cross Country Running Hip Abduction/Adduction Sit Kicks Other Activities bicycle with arms at sides holding barbells submerged. side pendulums with isometric hold with lower leg lowering and raising. Plank with BBs held underwater Comments 11 rounds intervals PT-OP-T Assessment and Plan Start: 04/06/18 15:16 Freq: Status: Active Protocol: Document 08/03/18 16:09 [facility] (Rec: 08/03/18 16:19 [facility] [id number]) Physical Therapy Assessment Goals activity tolerance Impairment activity tolerance Retirement Goal (LTG) Patient able to tolerate 45 min aquatic ex program without an increase in pain 06/22/18: goal progress, sessions end with manual techniques for muscle relaxation and pain management which patient is not able to do on her own. Will need to progress to aquatic ex only to see how patient chelsie. LTG Duration 2 months 4 Impairment Strength Retirement Goal (LTG) Improve strength bilateral LE' s and trunk to at least 4+/5 06/22/18: goal progress, though reports pain with all resisted motions in trunk and hips, difficulty stabilizing core during testing LTG Duration 2 months 3 Impairment ROM Retirement Goal (LTG) Improve lumbar ROM to WNL (06/01/18: had been making good progress, but muscle spasm limited all ROM today) 06/22/18: goal progress all motions except spinal extension poor tolerance due to pain. LTG Duration 2 months 2 Impairment LBP as high as 7/10 Short Term Goal (STG) Decrease LBP to no greater than 5/10 with usual activities (06/01/18: had been making good progress, but activity very limited today due to muscle spasm) 06/22/18: not seen since 06/01/18 due to PT schedule and patient having dental work. Patient pain worsened back to at least 7/10 STG Duration 1 month Bump Grader Operator Goal (LTG) Decrease pain to no greater than 3/10 (4/3/19: as above) LTG Duration 2 months 1 Impairment Oswestry disability index score 40% Short Term Goal (STG) Decrease Oswestry disability index score to 30% (06/01/18: again making good progress overall until today) STG Duration 1 month Retirement Goal (LTG) Decrease Oswestry disability index score to 20% with patient able to return to work LTG Duration 2 months Assessment Summary Assessment Decreased exercise tolerance due to illness, c/o inc pain with squats and lunge walking. Continues to report that overall since her shot her pain has decreased to about 3/ 10. With squats and lunge walks today reports increased to 5/10. Has not been able to increase her activity level significantly outside of the pool especially due to illness . Physical Therapy Plan Frequency and Duration Frequency of Treatment 2x/Week Duration of Treatment 12 visits Plan of Care Start Date 06/22/18 Plan of Care End Date 08/22/18 Therapeutic Interventions Therapeutic Interventions Aquatic Therapy Patient/Caregiver Education Self-Care/Home Management Next Visit Focus/Plan Next Note Type Treatment Note Next Visit Plan next session land-based PT.
--- NOTE | 2018-08-05 14:04 | PT.OTN ---
Current Diagnoses Intervertebral disc disorders with radiculopathy, lumbar region (08/05/18) Other intervertebral disc degeneration, lumbosacral region (08/05/18) Sprain of ligaments of lumbar spine, subsequent encounter (08/05/18) Physical Therapy Treatment Note PT-OP-A Visit Information Start: 04/06/18 15:16 Freq: Status: Active Protocol: Document 08/05/18 13:12 [facility] (Rec: 08/05/18 13:16 [facility] [id number]) Out-Patient Physical Therapy Visit Information Visit Information Visit Type Treatment Note Visit Note 10 min late Visit Start Time 13:10 Visit Stop Time 13:45 Total Visit Minutes 35 Visit Number 19 Number of E LEARNING DEVELOPER Visits 0 PT-OP-B Current Condition Start: 04/06/18 15:16 Freq: Status: Active Protocol: Document 04/06/18 15:52 [facility] (Rec: 04/06/18 16:28 [facility] [id number]) Current Condition History of Current Condition Onset Date September 2017 Current Complaints low back pain with radicular symptoms History of Current Condition Patient reports gradual worsening of LBP starting in September 2017, no known cause. Reports during a work shift her pain gradually worsened, severe pain that night. Hasn' t been able to work since. 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 At this time patient reports employer not willing to do any accomodation of light duty, shorter shifts, etc. Prior to exacerbation of pain September 2017 patient reports she was working 4 days per week. Long history LBP, history of knee injury with resulting complex regional pain syndrome left knee. Starting accupuncture trial today through [facility]. Previously seen by this PT for aquatic PT. Patient unable to do aquatic exercise independently due to cost. Treatment Goals Patient/Caregiver Goals Decrease pain, improve activity tolerance including ability to return to work. Prior Functional Status Baseline Function- ADL's Independent Baseline Function- Mobility Independent Baseline Function- Gait indep no device Baseline Function- Work/School working 4 days per week Baseline Function- Recreation/Hobbies minimal Current Functional Impairments (Reported) Functional Limitations- ADL's painful Functional Limitations- Mobility/Gait painful Functional Limitations- Work/School unable due to pain Functional Limitations- Recreation/ painful Hobbies Personal Factors Other Personal Factors That May Effect Patient smokes 1/2 to 1 pack Therapy/Recovery per day PT-OP-C Subjective Start: 04/06/18 15:16 Freq: Status: Active Protocol: Document 08/05/18 13:12 [facility] (Rec: 08/05/18 13:16 [facility] [id number]) OP-PT Subjective Patient Comments Patient Comments Patient reports increased pain after last session with trial of squats and lunge walk. Has bands and ball at home for exercises. Unable to quantify how much she is able to stand or walk on land. Sees Dr. Garvin 08/17/18 to discuss possible return to work with [employer]. C /o stress at home with her son , COLEEN upset, still getting over her cold. not feeling well, don't want to do anything that might hurt me. PT-OP-G Mobility & Gait Start: 04/06/18 15:16 Freq: Status: Active Protocol: Document 04/06/18 15:52 [facility] (Rec: 04/06/18 16:28 [facility] [id number]) OP Gait Assessment Gait Deviations General Gait Pattern Antalgic Wide Based Gait Comments Gait Comments Increased ER bilateral LE's PT-OP-J Posture/Palpation/Skin Start: 04/06/18 15:16 Freq: Status: Active Protocol: Document 04/06/18 15:52 [facility] (Rec: 04/06/18 16:28 [facility] [id number]) Posture Evaluation Position Standing Head/C-Spine Posture Forward Head T-Spine Posture Increased Kyphosis L-Spine Posture Flattened Palpation Assessment Location bilateral lumbar spine Palpation Findings Soft Tissue Tightness Muscle Guarding PT-OP-K Range of Motion Start: 04/06/18 15:16 Freq: Status: Active Protocol: Document 04/06/18 15:52 [facility] (Rec: 04/06/18 16:28 [facility] [id number]) Lumbar Spine Range of Motion Lumbar Spine Active Testing Position Standing Flexion 70 Extension 0 Rotation Left 20 Rotation Right 20 Lateral Flexion Left 10 Lateral Flexion Right 20 ROM Limitations Soft Tissue Tightness Pain Comments flexion occurs at hips, not lumbar spine Hip Goniometric Range of Motion Hip Measured in Degrees rahul Hip ROM WFL Yes Hip ROM Limitations Comments patient hypermobile Knee Goniometric Range of Motion Knee Measured in Degrees rahul Knee ROM WFL Yes Ankle and Foot Goniometric Range of Motion Ankle and Foot Measured in Degrees rahul Ankle/Foot ROM WFL Yes PT-OP-L Special Tests Start: 04/06/18 15:16 Freq: Status: Active Protocol: Document 04/06/18 15:52 [facility] (Rec: 04/06/18 16:28 [facility] [id number]) Special Tests Lumbar Spine Special Tests Prone Press Up Test Results unable Straight Leg Raise Test Results positive rahul Neural Special Tests- Lower Body Sciatic Nerve Tension Test Results positive rahul PT-OP-M Strength Start: 04/06/18 15:16 Freq: Status: Active Protocol: Document 04/06/18 15:52 [facility] (Rec: 04/06/18 16:28 [facility] [id number]) Trunk Strength Trunk Manual Muscle Testing Core Stabilization fair Reason Not Measured Pain Hip Strength Hip Manual Muscle Testing Left Flexion (L2) 4- Good- Abduction 4- Good- External Rotation 4- Good- Internal Rotation 4 Good Comments back pain with all resisted motions Right Flexion (L2) 4 Good Abduction 4 Good External Rotation 4- Good- Internal Rotation 4- Good- Comments back pain with all resisted motions Knee Strength Knee Manual Muscle Testing Left Flexion (S2) 4- Good- Extension (L3) 4 Good Comments painful Right Flexion (S2) 4+ Good+ Extension (L3) 4+ Good+ Ankle/Foot Strength Ankle and Foot Manual Muscle Testing Left Dorsiflexion (L4) 4+ Good+ Plantarflexion (S1) 4+ Good+ Right Dorsiflexion (L4) 4+ Good+ Plantarflexion (S1) 4+ Good+ Toe Strength Toe Manual Muscle Testing Left Great Toe Flexion 4+ Good+ Extension 4+ Good+ Right Great Toe Flexion 4+ Good+ Extension 4+ Good+ PT-OP-Q Treatments Start: 04/06/18 15:16 Freq: Status: Active Protocol: Document 08/05/18 13:12 [facility] (Rec: 08/05/18 13:59 [facility] [id number]) Cardio Equipment Recumbent Stepper (Sci-Fit) Duration (Minutes) 10 Resistance 1.5 Seat Position 11 Treadmill Duration (Minutes) 5 Speed 2.0 Incline 0 Gym Equipment Shuttle Recovery Bilateral Squats Resistance 50 Shuttle Recovery Platform Stable Reps/Time 10x2 Therapeutic Exercises Supine Exercises bridge Reps/Minutes 4x Comments discontinued due to pain TrA with bent knee lowering Reps/Minutes 2x Comments discontinued due to pain TrA with march Reps/Minutes 10x gluteal set Reps/Minutes 10x TrA with hip ab/ER Resistance L2 TB Reps/Minutes 10x TrA with ball squeeze Reps/Minutes 10x TrA Reps/Minutes 10x Standing Exercises Row, shld ext Reps/Minutes 10x Comments emphasis on postural alignment and core stabilization PT-OP-S Aquatic Treatment Start: 04/06/18 15:16 Freq: Status: Active Protocol: Document 08/03/18 16:09 [facility] (Rec: 08/03/18 16:19 [facility] [id number]) Aquatics Treatment Pool Entry/Exit Pool Entry/Exit Method Stairs Assistance Independent Water Walking lung walk Walking Equipment 5# Level of Assistance Standby Assistance Verbal Cues Comments reported increased LBP quick reverses walk Water Level Chest Level Comments for core engagement Lower Extremity Exercises squats Body Position Standing Water Level Chest Level Equipment 5# Reps/Duration 10x2 Comments reported increased LBP step-ups Equipment 8 boxes Reps/Duration 10x Lower Extremity Stretches piriformis stretch Body Position Standing Water Level Chest Level Comments large noodle DKTC, SKTC Water Level [place] Reps/Duration 2x Comments wall HS Water Level [place] Reps/Duration 2 Comments wall, shallow with large noodle Upper Extremity Exercises hor ab/ad, flex/ext Details DLS emphasis, rahul and unil Body Position Standing Water Level Chest Level Equipment paddles closed Reps/Duration 10x ea [place] Activities [place] Activities Bicycle Cross Country Running Hip Abduction/Adduction Sit Kicks Other Activities bicycle with arms at sides holding barbells submerged. side pendulums with isometric hold with lower leg lowering and raising. Plank with BBs held underwater Comments 11 rounds intervals PT-OP-T Assessment and Plan Start: 04/06/18 15:16 Freq: Status: Active Protocol: Document 08/05/18 13:12 [facility] (Rec: 08/05/18 13:16 [facility] [id number]) Physical Therapy Assessment Goals activity tolerance Impairment activity tolerance [facility] Goal (LTG) Patient able to tolerate 45 min aquatic ex program without an increase in pain 06/22/18: goal progress, sessions end with manual techniques for muscle relaxation and pain management which patient is not able to do on her own. Will need to progress to aquatic ex only to see how patient chelsie. LTG Duration 2 months 4 Impairment Strength [facility] Goal (LTG) Improve strength bilateral LE' s and trunk to at least 4+/5 06/22/18: goal progress, though reports pain with all resisted motions in trunk and hips, difficulty stabilizing core during testing LTG Duration 2 months 3 Impairment ROM [facility] Goal (LTG) Improve lumbar ROM to WNL (06/01/18: had been making good progress, but muscle spasm limited all ROM today) 06/22/18: goal progress all motions except spinal extension poor tolerance due to pain. LTG Duration 2 months 2 Impairment LBP as high as 7/10 Short Term Goal (STG) Decrease LBP to no greater than 5/10 with usual activities (06/01/18: had been making good progress, but activity very limited today due to muscle spasm) 06/22/18: not seen since 06/01/18 due to PT schedule and patient having dental work. Patient pain worsened back to at least 7/10 STG Duration 1 month [facility] Goal (LTG) Decrease pain to no greater than 3/10 (06/22/18: as above) LTG Duration 2 months 1 Impairment Oswestry disability index score 40% Short Term Goal (STG) Decrease Oswestry disability index score to 30% (06/01/18: again making good progress overall until today) STG Duration 1 month [facility] Goal (LTG) Decrease Oswestry disability index score to 20% with patient able to return to work LTG Duration 2 months Assessment Summary Assessment Good tolerance for Sci-Fit, fair for treadmill. C/o increased pain with trial bent knee lowering supine with knees bent and with bridging so stopped. Refused moist heat due to not feeling well today, wanted to go home. Compliance to HEP and walking appears sporadic and limited. Physical Therapy Plan Frequency and Duration Frequency of Treatment 2x/Week Duration of Treatment 12 visits Plan of Care Start Date 06/22/18 Plan of Care End Date 08/22/18 Therapeutic Interventions Therapeutic Interventions Aquatic Therapy Patient/Caregiver Education Self-Care/Home Management Next Visit Focus/Plan Next Note Type Treatment Note Next Visit Plan Progression of land-based ther ex with emphasis on postural alignment and core stabilization in prep for return to work. Continue to encourage increased walking at home as well as increased compliance to HEP.
--- NOTE | 2018-08-09 15:12 | PT.OTN ---
Current Diagnoses Intervertebral disc disorders with radiculopathy, lumbar region (08/09/18) Other intervertebral disc degeneration, lumbosacral region (08/09/18) Sprain of ligaments of lumbar spine, subsequent encounter (08/09/18) Physical Therapy Treatment Note PT-OP-A Visit Information Start: 04/06/18 15:16 Freq: Status: Active Protocol: Document 08/09/18 15:12 DLM (Rec: 08/09/18 15:27 DLM [id number]) Out-Patient Physical Therapy Visit Information Visit Information Visit Type Treatment Note Visit Start Time 14:30 Visit Stop Time 15:20 Total Visit Minutes 50 Visit Number 20 Number of ETHNIC STUDIES PROFESSOR Visits 0 Evaluation Information Evaluation Date 04/06/18 PT-OP-B Current Condition Start: 04/06/18 15:16 Freq: Status: Active Protocol: Document 04/06/18 15:52 SAK (Rec: 04/06/18 16:28 SAK [id number]) Current Condition History of Current Condition Onset Date September 2017 Current Complaints low back pain with radicular symptoms History of Current Condition Patient reports gradual worsening of LBP starting in September 2017, no known cause. Reports during a work shift her pain gradually worsened, severe pain that night. Hasn' t been able to work since. 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 At this time patient reports employer not willing to do any accomodation of light duty, shorter shifts, etc. Prior to exacerbation of pain September 2017 patient reports she was working 4 days per week. Long history LBP, history of knee injury with resulting complex regional pain syndrome left knee. Starting accupuncture trial today through [facility]. Previously seen by this PT for aquatic PT. Patient unable to do aquatic exercise independently due to cost. Treatment Goals Patient/Caregiver Goals Decrease pain, improve activity tolerance including ability to return to work. Prior Functional Status Baseline Function- ADL's Independent Baseline Function- Mobility Independent Baseline Function- Gait indep no device Baseline Function- Work/School working 4 days per week Baseline Function- Recreation/Hobbies minimal Current Functional Impairments (Reported) Functional Limitations- ADL's painful Functional Limitations- Mobility/Gait painful Functional Limitations- Work/School unable due to pain Functional Limitations- Recreation/ painful Hobbies Personal Factors Other Personal Factors That May Effect Patient smokes 1/2 to 1 pack Therapy/Recovery per day PT-OP-C Subjective Start: 04/06/18 15:16 Freq: Status: Active Protocol: Document 08/09/18 15:12 DLM (Rec: 08/09/18 15:27 DLM [id number]) OP-PT Subjective Patient Comments Patient Comments She feels better when sitting or lying down, pain is worse when walking. She was sore after the new land exercises last visit. OP-PT Pain Assessment Location lumbar spine, radiation into rahul post thighs Intensity 7 Scale Used Numeric (1 - 10) PT-OP-G Mobility & Gait Start: 04/06/18 15:16 Freq: Status: Active Protocol: Document 04/06/18 15:52 SAK (Rec: 04/06/18 16:28 SAK [id number]) OP Gait Assessment Gait Deviations General Gait Pattern Antalgic Wide Based Gait Comments Gait Comments Increased ER bilateral LE's PT-OP-J Posture/Palpation/Skin Start: 04/06/18 15:16 Freq: Status: Active Protocol: Document 04/06/18 15:52 SAK (Rec: 04/06/18 16:28 SAK [id number]) Posture Evaluation Position Standing Head/C-Spine Posture Forward Head T-Spine Posture Increased Kyphosis L-Spine Posture Flattened Palpation Assessment Location bilateral lumbar spine Palpation Findings Soft Tissue Tightness Muscle Guarding PT-OP-K Range of Motion Start: 04/06/18 15:16 Freq: Status: Active Protocol: Document 04/06/18 15:52 SAK (Rec: 04/06/18 16:28 SAK [id number]) Lumbar Spine Range of Motion Lumbar Spine Active Testing Position Standing Flexion 70 Extension 0 Rotation Left 20 Rotation Right 20 Lateral Flexion Left 10 Lateral Flexion Right 20 ROM Limitations Soft Tissue Tightness Pain Comments flexion occurs at hips, not lumbar spine Hip Goniometric Range of Motion Hip Measured in Degrees rahul Hip ROM WFL Yes Hip ROM Limitations Comments patient hypermobile Knee Goniometric Range of Motion Knee Measured in Degrees rahul Knee ROM WFL Yes Ankle and Foot Goniometric Range of Motion Ankle and Foot Measured in Degrees rahul Ankle/Foot ROM WFL Yes PT-OP-L Special Tests Start: 04/06/18 15:16 Freq: Status: Active Protocol: Document 04/06/18 15:52 SAK (Rec: 04/06/18 16:28 SAK [id number]) Special Tests Lumbar Spine Special Tests Prone Press Up Test Results unable Straight Leg Raise Test Results positive rahul Neural Special Tests- Lower Body Sciatic Nerve Tension Test Results positive rahul PT-OP-M Strength Start: 04/06/18 15:16 Freq: Status: Active Protocol: Document 04/06/18 15:52 SAK (Rec: 04/06/18 16:28 SAK [id number]) Trunk Strength Trunk Manual Muscle Testing Core Stabilization fair Reason Not Measured Pain Hip Strength Hip Manual Muscle Testing Left Flexion (L2) 4- Good- Abduction 4- Good- External Rotation 4- Good- Internal Rotation 4 Good Comments back pain with all resisted motions Right Flexion (L2) 4 Good Abduction 4 Good External Rotation 4- Good- Internal Rotation 4- Good- Comments back pain with all resisted motions Knee Strength Knee Manual Muscle Testing Left Flexion (S2) 4- Good- Extension (L3) 4 Good Comments painful Right Flexion (S2) 4+ Good+ Extension (L3) 4+ Good+ Ankle/Foot Strength Ankle and Foot Manual Muscle Testing Left Dorsiflexion (L4) 4+ Good+ Plantarflexion (S1) 4+ Good+ Right Dorsiflexion (L4) 4+ Good+ Plantarflexion (S1) 4+ Good+ Toe Strength Toe Manual Muscle Testing Left Great Toe Flexion 4+ Good+ Extension 4+ Good+ Right Great Toe Flexion 4+ Good+ Extension 4+ Good+ PT-OP-Q Treatments Start: 04/06/18 15:16 Freq: Status: Active Protocol: Document 08/09/18 15:12 DLM (Rec: 08/09/18 15:27 DLM [id number]) Cardio Equipment Recumbent Stepper (Sci-Fit) Duration (Minutes) 10 Resistance 1.5 Seat Position 11 Treadmill Duration (Minutes) 5 Speed 2.0 Incline 0 Therapeutic Exercises Supine Exercises Core stabalization with UE EX Supine Exercise Name horizontal ABD, Bilateral ER and Shoulder elevation Side bilateral Resistance L2 Theraband Reps/Minutes x 10 reps each Comments substituted supine ex instead of standing due to pain issues in standing bridge Supine Exercise Name Bridges Reps/Minutes x 10 reps TrA with march Supine Exercise Name TrA with March Side bilateral Reps/Minutes x 10 reps gluteal set Supine Exercise Name Glut Sets Reps/Minutes x 10 reps TrA with hip ab/ER Supine Exercise Name TrA with hip AB/ER Side bilateral Resistance L2 Theraband Reps/Minutes x 10 reps TrA with ball squeeze Supine Exercise Name TrA with ball squeeze Side bilateral Reps/Minutes x 10 reps TrA Supine Exercise Name TrA Isometric Reps/Minutes x 10 reps Sidelying Exercises Clamshells Sidelying Exercise Name Clamshells Side bilateral Reps/Minutes x 10 reps PT-OP-R Modalities Start: 04/06/18 15:16 Freq: Status: Active Protocol: Document 08/09/18 15:12 DLM (Rec: 08/09/18 15:27 DLM [id number]) Hot Pack/Cold Pack Treatment Hot Pack Location low back Patient Position Prone Treatment Duration (minutes) 15 Patient Tolerance Good Comments pillows under abdomen PT-OP-T Assessment and Plan Start: 04/06/18 15:16 Freq: Status: Active Protocol: Document 08/09/18 15:12 DLM (Rec: 08/09/18 15:27 DLM [id number]) Physical Therapy Assessment Impairments Impairments Activity Tolerance Functional Activities Functional Mobility Gait Pain Posture ROM Soft Tissue Mobility Strength Goals activity tolerance Impairment activity tolerance Snf Goal (LTG) Patient able to tolerate 45 min aquatic ex program without an increase in pain 06/22/18: goal progress, sessions end with manual techniques for muscle relaxation and pain management which patient is not able to do on her own. Will need to progress to aquatic ex only to see how patient chelsie. LTG Duration 2 months 4 Impairment Strength Snf Goal (LTG) Improve strength bilateral LE' s and trunk to at least 4+/5 06/22/18: goal progress, though reports pain with all resisted motions in trunk and hips, difficulty stabilizing core during testing LTG Duration 2 months 3 Impairment ROM Snf Goal (LTG) Improve lumbar ROM to WNL (06/01/18: had been making good progress, but muscle spasm limited all ROM today) 06/22/18: goal progress all motions except spinal extension poor tolerance due to pain. LTG Duration 2 months 2 Impairment LBP as high as 7/10 Short Term Goal (STG) Decrease LBP to no greater than 5/10 with usual activities (06/01/18: had been making good progress, but activity very limited today due to muscle spasm) 06/22/18: not seen since 06/01/18 due to PT schedule and patient having dental work. Patient pain worsened back to at least 7/10 STG Duration 1 month Grounds Restoration Specialist Goal (LTG) Decrease pain to no greater than 3/10 (06/22/18: as above) LTG Duration 2 months 1 Impairment Oswestry disability index score 40% Short Term Goal (STG) Decrease Oswestry disability index score to 30% (06/01/18: again making good progress overall until today) STG Duration 1 month Snf Goal (LTG) Decrease Oswestry disability index score to 20% with patient able to return to work LTG Duration 2 months Progress Towards Goals Progress Towards Goals Slow Progress due to Activity Tolerance Assessment Summary Assessment She reports soreness with her exercises but able to tolerate them with modifications in position to manage her pain. Will attempt to return to doing exercises in standing as her ex tolerance improves. Will monitor her soreness with the changes in her exercise routine of land exercises instead of pool exercises. Physical Therapy Plan Frequency and Duration Frequency of Treatment 2x/Week Duration of Treatment 12 visits Plan of Care Start Date 06/22/18 Plan of Care End Date 08/22/18 Therapeutic Interventions Therapeutic Interventions Aquatic Therapy Patient/Caregiver Education Self-Care/Home Management Modalities Cold Pack/Ice Massage Electric Stimulation Hot Packs Next Visit Focus/Plan Next Note Type Treatment Note Next Visit Plan Continue progression of land based exercises with return to work focus
--- NOTE | 2018-08-12 14:30 | PT.OTN ---
Current Diagnoses Intervertebral disc disorders with radiculopathy, lumbar region (08/12/18) Other intervertebral disc degeneration, lumbosacral region (08/12/18) Sprain of ligaments of lumbar spine, subsequent encounter (08/12/18) Physical Therapy Treatment Note PT-OP-A Visit Information Start: 04/06/18 15:16 Freq: Status: Active Protocol: Document 08/12/18 14:30 DLM (Rec: 08/12/18 15:51 DLM [id number]) Out-Patient Physical Therapy Visit Information Visit Information Visit Type Treatment Note Visit Note one more visit scheduled, authorization expires 08/19 Visit Start Time 14:30 Visit Stop Time 15:16 Total Visit Minutes 46 Visit Number 21 Number of NUCLEAR RADIOLOGIST Visits 0 Evaluation Information Evaluation Date 04/06/18 PT-OP-B Current Condition Start: 04/06/18 15:16 Freq: Status: Active Protocol: Document 04/06/18 15:52 SAK (Rec: 04/06/18 16:28 SAK [id number]) Current Condition History of Current Condition Onset Date September 2017 Current Complaints low back pain with radicular symptoms History of Current Condition Patient reports gradual worsening of LBP starting in September 2017, no known cause. Reports during a work shift her pain gradually worsened, severe pain that night. Hasn' t been able to work since. 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 At this time patient reports employer not willing to do any accomodation of light duty, shorter shifts, etc. Prior to exacerbation of pain September 2017 patient reports she was working 4 days per week. Long history LBP, history of knee injury with resulting complex regional pain syndrome left knee. Starting accupuncture trial today through [facility]. Previously seen by this PT for aquatic PT. Patient unable to do aquatic exercise independently due to cost. Treatment Goals Patient/Caregiver Goals Decrease pain, improve activity tolerance including ability to return to work. Prior Functional Status Baseline Function- ADL's Independent Baseline Function- Mobility Independent Baseline Function- Gait indep no device Baseline Function- Work/School working 4 days per week Baseline Function- Recreation/Hobbies minimal Current Functional Impairments (Reported) Functional Limitations- ADL's painful Functional Limitations- Mobility/Gait painful Functional Limitations- Work/School unable due to pain Functional Limitations- Recreation/ painful Hobbies Personal Factors Other Personal Factors That May Effect Patient smokes 1/2 to 1 pack Therapy/Recovery per day PT-OP-C Subjective Start: 04/06/18 15:16 Freq: Status: Active Protocol: Document 08/12/18 14:30 DLM (Rec: 08/12/18 15:51 DLM [id number]) OP-PT Subjective Patient Comments Patient Comments Her back is feeling really tight. She used heat this morning to help. She is feeling nausead today also. Patient Reported Progress Same PT-OP-G Mobility & Gait Start: 04/06/18 15:16 Freq: Status: Active Protocol: Document 04/06/18 15:52 SAK (Rec: 04/06/18 16:28 SAK [id number]) OP Gait Assessment Gait Deviations General Gait Pattern Antalgic Wide Based Gait Comments Gait Comments Increased ER bilateral LE's PT-OP-J Posture/Palpation/Skin Start: 04/06/18 15:16 Freq: Status: Active Protocol: Document 04/06/18 15:52 SAK (Rec: 04/06/18 16:28 SAK [id number]) Posture Evaluation Position Standing Head/C-Spine Posture Forward Head T-Spine Posture Increased Kyphosis L-Spine Posture Flattened Palpation Assessment Location bilateral lumbar spine Palpation Findings Soft Tissue Tightness Muscle Guarding PT-OP-K Range of Motion Start: 04/06/18 15:16 Freq: Status: Active Protocol: Document 04/06/18 15:52 SAK (Rec: 04/06/18 16:28 SAK [id number]) Lumbar Spine Range of Motion Lumbar Spine Active Testing Position Standing Flexion 70 Extension 0 Rotation Left 20 Rotation Right 20 Lateral Flexion Left 10 Lateral Flexion Right 20 ROM Limitations Soft Tissue Tightness Pain Comments flexion occurs at hips, not lumbar spine Hip Goniometric Range of Motion Hip Measured in Degrees rahul Hip ROM WFL Yes Hip ROM Limitations Comments patient hypermobile Knee Goniometric Range of Motion Knee Measured in Degrees rahul Knee ROM WFL Yes Ankle and Foot Goniometric Range of Motion Ankle and Foot Measured in Degrees rahul Ankle/Foot ROM WFL Yes PT-OP-L Special Tests Start: 04/06/18 15:16 Freq: Status: Active Protocol: Document 04/06/18 15:52 SAK (Rec: 04/06/18 16:28 SAK [id number]) Special Tests Lumbar Spine Special Tests Prone Press Up Test Results unable Straight Leg Raise Test Results positive rahul Neural Special Tests- Lower Body Sciatic Nerve Tension Test Results positive rahul PT-OP-M Strength Start: 04/06/18 15:16 Freq: Status: Active Protocol: Document 04/06/18 15:52 SAK (Rec: 04/06/18 16:28 SAK [id number]) Trunk Strength Trunk Manual Muscle Testing Core Stabilization fair Reason Not Measured Pain Hip Strength Hip Manual Muscle Testing Left Flexion (L2) 4- Good- Abduction 4- Good- External Rotation 4- Good- Internal Rotation 4 Good Comments back pain with all resisted motions Right Flexion (L2) 4 Good Abduction 4 Good External Rotation 4- Good- Internal Rotation 4- Good- Comments back pain with all resisted motions Knee Strength Knee Manual Muscle Testing Left Flexion (S2) 4- Good- Extension (L3) 4 Good Comments painful Right Flexion (S2) 4+ Good+ Extension (L3) 4+ Good+ Ankle/Foot Strength Ankle and Foot Manual Muscle Testing Left Dorsiflexion (L4) 4+ Good+ Plantarflexion (S1) 4+ Good+ Right Dorsiflexion (L4) 4+ Good+ Plantarflexion (S1) 4+ Good+ Toe Strength Toe Manual Muscle Testing Left Great Toe Flexion 4+ Good+ Extension 4+ Good+ Right Great Toe Flexion 4+ Good+ Extension 4+ Good+ PT-OP-Q Treatments Start: 04/06/18 15:16 Freq: Status: Active Protocol: Document 08/12/18 14:30 DLM (Rec: 08/12/18 15:51 DLM [id number]) Cardio Equipment Recumbent Stepper (Sci-Fit) Duration (Minutes) 10 Resistance 1.5 Seat Position 11 Treadmill Duration (Minutes) 5 Speed 2.0 Incline 0 Gym Equipment Shuttle Recovery Unilateral Squats Resistance 50# Shuttle Recovery Platform Stable Reps/Time x 10 bilateral Bilateral Squats Resistance 50# Shuttle Recovery Platform Stable Reps/Time 10x2 Therapeutic Exercises Supine Exercises bridge Supine Exercise Name Bridges Reps/Minutes x 10 reps TrA with bent knee lowering Side bilateral Reps/Minutes x 10 reps TrA with march Supine Exercise Name TrA with March Side bilateral Reps/Minutes x 10 reps gluteal set Supine Exercise Name Glut Sets Reps/Minutes x 10 reps TrA with hip ab/ER Supine Exercise Name TrA with hip AB/ER Side bilateral Resistance L2 Theraband Reps/Minutes x 10 reps each Comments bilateral and single limb TrA with ball squeeze Supine Exercise Name TrA with ball squeeze Side bilateral Reps/Minutes x 10 reps TrA Supine Exercise Name TrA Isometric Reps/Minutes x 10 reps Sidelying Exercises Clamshells Sidelying Exercise Name Clamshells Side bilateral Resistance L2 theraband Reps/Minutes x 10 reps PT-OP-R Modalities Start: 04/06/18 15:16 Freq: Status: Active Protocol: Document 08/12/18 14:30 DLM (Rec: 08/12/18 15:51 DLM [id number]) Hot Pack/Cold Pack Treatment Hot Pack Comments pt declined, will use heat at home PT-OP-T Assessment and Plan Start: 04/06/18 15:16 Freq: Status: Active Protocol: Document 08/12/18 14:30 DLM (Rec: 08/12/18 15:51 DLM [id number]) Physical Therapy Assessment Goals activity tolerance Impairment activity tolerance Toxics Program Officer Goal (LTG) Patient able to tolerate 45 min aquatic ex program without an increase in pain 06/22/18: goal progress, sessions end with manual techniques for muscle relaxation and pain management which patient is not able to do on her own. Will need to progress to aquatic ex only to see how patient chelsie. LTG Duration 2 months 4 Impairment Strength Toxics Program Officer Goal (LTG) Improve strength bilateral LE' s and trunk to at least 4+/5 06/22/18: goal progress, though reports pain with all resisted motions in trunk and hips, difficulty stabilizing core during testing LTG Duration 2 months 3 Impairment ROM Fdc Goal (LTG) Improve lumbar ROM to WNL (06/01/18: had been making good progress, but muscle spasm limited all ROM today) 06/22/18: goal progress all motions except spinal extension poor tolerance due to pain. LTG Duration 2 months 2 Impairment LBP as high as 7/10 Short Term Goal (STG) Decrease LBP to no greater than 5/10 with usual activities (06/01/18: had been making good progress, but activity very limited today due to muscle spasm) 06/22/18: not seen since 06/01/18 due to PT schedule and patient having dental work. Patient pain worsened back to at least 7/10 STG Duration 1 month Fdc Goal (LTG) Decrease pain to no greater than 3/10 (06/22/18: as above) LTG Duration 2 months 1 Impairment Oswestry disability index score 40% Short Term Goal (STG) Decrease Oswestry disability index score to 30% (06/01/18: again making good progress overall until today) STG Duration 1 month Toxics Program Officer Goal (LTG) Decrease Oswestry disability index score to 20% with patient able to return to work LTG Duration 2 months Progress Towards Goals Progress Towards Goals Slow Progress due to Activity Tolerance Assessment Summary Assessment She reports continued back pain. She tolerated her exercises with pain. She uses double knee to chest stretch between her strengthening exercises to manage her pain. She is using heat at home to manage her pain. Pt is aware that her next visit is the last scheduled/authorizated at this time. Pt reports she has follow-up planned with her physician. Physical Therapy Plan Frequency and Duration Frequency of Treatment 2x/Week Duration of Treatment 12 visits Plan of Care Start Date 06/22/18 Plan of Care End Date 08/22/18 Therapeutic Interventions Therapeutic Interventions Aquatic Therapy Patient/Caregiver Education Self-Care/Home Management Modalities Cold Pack/Ice Massage Electric Stimulation Hot Packs Next Visit Focus/Plan Next Note Type Treatment Note Next Visit Plan last scheduled visit on 08/18
--- NOTE | 2018-08-18 11:20 | PT.OTN ---
Current Diagnoses Intervertebral disc disorders with radiculopathy, lumbar region (08/18/18) Other intervertebral disc degeneration, lumbosacral region (08/18/18) Sprain of ligaments of lumbar spine, subsequent encounter (08/18/18) Physical Therapy Treatment Note PT-OP-A Visit Information Start: 04/06/18 15:16 Freq: Status: Active Protocol: Document 08/18/18 11:20 DLM (Rec: 08/18/18 18:23 DLM [id number]) Out-Patient Physical Therapy Visit Information Visit Information Visit Type Treatment Note Visit Start Time 11:20 Visit Stop Time 12:05 Total Visit Minutes 45 Visit Number 22 Number of COOK COLD MEAT Visits 0 Evaluation Information Evaluation Date 04/06/18 PT-OP-B Current Condition Start: 04/06/18 15:16 Freq: Status: Active Protocol: Document 04/06/18 15:52 SAK (Rec: 04/06/18 16:28 SAK [id number]) Current Condition History of Current Condition Onset Date September 2017 Current Complaints low back pain with radicular symptoms History of Current Condition Patient reports gradual worsening of LBP starting in September 2017, no known cause. Reports during a work shift her pain gradually worsened, severe pain that night. Hasn' t been able to work since. 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 At this time patient reports employer not willing to do any accomodation of light duty, shorter shifts, etc. Prior to exacerbation of pain September 2017 patient reports she was working 4 days per week. Long history LBP, history of knee injury with resulting complex regional pain syndrome left knee. Starting accupuncture trial today through [facility]. Previously seen by this PT for aquatic PT. Patient unable to do aquatic exercise independently due to cost. Treatment Goals Patient/Caregiver Goals Decrease pain, improve activity tolerance including ability to return to work. Prior Functional Status Baseline Function- ADL's Independent Baseline Function- Mobility Independent Baseline Function- Gait indep no device Baseline Function- Work/School working 4 days per week Baseline Function- Recreation/Hobbies minimal Current Functional Impairments (Reported) Functional Limitations- ADL's independent Functional Limitations- Mobility/Gait can walk about an hour before getting tired/sore Functional Limitations- Work/School has not returned to work yet Functional Limitations- Recreation/ she does not go out much Hobbies Personal Factors Other Personal Factors That May Effect Patient smokes 1/2 to 1 pack Therapy/Recovery per day PT-OP-C Subjective Start: 04/06/18 15:16 Freq: Status: Active Protocol: Document 08/18/18 11:20 DLM (Rec: 08/18/18 18:23 DLM [id number]) OP-PT Subjective Patient Comments Patient Comments She feels she has made a lot of progress in therapy. 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 She is worried that her work might not approve it. Patient Reported Progress Improving Patient Questionnaires Oswestry Low Back Index Oswestry Score 40% Oswestry Impairment 40 to 59% Impaired (Score 40- 59) OP-PT Pain Assessment Location Lower Posterior Back Pain Location Details and right hip area Intensity 5 Scale Used Numeric (1 - 10) Description Aching Other Pain Aggravating Factors bending backwards and twisting Pain Alleviating Factors Heat Other Pain Alleviating Factors rest Comments Pain Comments Pain reported: lowest 3/10 worst 7/10 PT-OP-J Posture/Palpation/Skin Start: 04/06/18 15:16 Freq: Status: Active Protocol: Document 04/06/18 15:52 SAK (Rec: 04/06/18 16:28 SAK [id number]) Posture Evaluation Position Standing Head/C-Spine Posture Forward Head T-Spine Posture Increased Kyphosis L-Spine Posture Flattened 08/18/18 Pt demonstrates improved postural awareness Palpation Assessment Location bilateral lumbar spine Palpation Findings Soft Tissue Tightness Muscle Guarding PT-OP-K Range of Motion Start: 04/06/18 15:16 Freq: Status: Active Protocol: Document 08/18/18 11:20 DLM (Rec: 08/18/18 18:23 DL [id number]) Lumbar Spine Range of Motion Lumbar Spine Active Testing Position Standing Flexion 90 Lateral Flexion Left 100 Lateral Flexion Right 100 ROM Limitations Pain Comments she declined to perform extension and rotation due to fear of increased pain PT-OP-L Special Tests Start: 04/06/18 15:16 Freq: Status: Active Protocol: Document 04/06/18 15:52 SAK (Rec: 04/06/18 16:28 SAK [id number]) Special Tests Lumbar Spine Special Tests Prone Press Up Test Results unable Straight Leg Raise Test Results positive rahul Neural Special Tests- Lower Body Sciatic Nerve Tension Test Results positive rahul PT-OP-M Strength Start: 04/06/18 15:16 Freq: Status: Active Protocol: Document 08/18/18 11:20 DLM (Rec: 08/18/18 18:23 DLM [id number]) Trunk Strength Trunk Manual Muscle Testing Core Stabilization 3+/4- Hip Strength Hip Manual Muscle Testing Left Flexion (L2) 4+ Good+ Right Flexion (L2) 4+ Good+ Reason Not Measured Pain Comments hip flexion strength limited by pain Knee Strength Knee Manual Muscle Testing Left Flexion (S2) 5 Normal Extension (L3) 5 Normal Right Flexion (S2) 5 Normal Extension (L3) 5 Normal Ankle/Foot Strength Ankle and Foot Manual Muscle Testing Left Dorsiflexion (L4) 5 Normal Right Dorsiflexion (L4) 5 Normal Toe Strength Toe Manual Muscle Testing Left Great Toe Extension 5 Normal Right Great Toe Extension 5 Normal PT-OP-Q Treatments Start: 04/06/18 15:16 Freq: Status: Active Protocol: Document 08/18/18 11:20 DLM (Rec: 08/18/18 18:23 DLM [id number]) Cardio Equipment Recumbent Stepper (Sci-Fit) Duration (Minutes) 10 Resistance 1.5 Seat Position 11 Treadmill Duration (Minutes) 5 Speed 2.0 Incline 0 Therapeutic Exercises Supine Exercises bridge Supine Exercise Name Bridges Reps/Minutes x 10 reps TrA with bent knee lowering Side bilateral Reps/Minutes x 10 reps TrA with march Supine Exercise Name TrA with March Side bilateral Reps/Minutes x 10 reps gluteal set Supine Exercise Name Glut Sets Reps/Minutes x 10 reps TrA with hip ab/ER Supine Exercise Name TrA with hip AB/ER Side bilateral Resistance L2 Theraband Reps/Minutes x 10 reps each Comments bilateral and single limb TrA with ball squeeze Supine Exercise Name TrA with ball squeeze Side bilateral Reps/Minutes x 10 reps TrA Supine Exercise Name TrA Isometric Reps/Minutes x 10 reps Sidelying Exercises Clamshells Sidelying Exercise Name Clamshells Side bilateral Resistance L2 theraband Reps/Minutes x 10 reps PT-OP-R Modalities Start: 04/06/18 15:16 Freq: Status: Active Protocol: Document 08/12/18 14:30 DLM (Rec: 08/12/18 15:51 DLM [id number]) Hot Pack/Cold Pack Treatment Hot Pack Comments pt declined, will use heat at home PT-OP-S Aquatic Treatment Start: 04/06/18 15:16 Freq: Status: Active Protocol: Document 08/03/18 16:09 SAK (Rec: 08/03/18 16:19 SAK [id number]) Aquatics Treatment Pool Entry/Exit Pool Entry/Exit Method Stairs Assistance Independent Water Walking lung walk Walking Equipment 5# Level of Assistance Standby Assistance Verbal Cues Comments reported increased LBP quick reverses walk Water Level Chest Level Comments for core engagement Lower Extremity Exercises squats Body Position Standing Water Level Chest Level Equipment 5# Reps/Duration 10x2 Comments reported increased LBP step-ups Equipment 8 boxes Reps/Duration 10x Lower Extremity Stretches piriformis stretch Body Position Standing Water Level Chest Level Comments large noodle DKTC, SKTC Water Level [place] Reps/Duration 2x Comments wall HS Water Level [place] Reps/Duration 2 Comments wall, shallow with large noodle Upper Extremity Exercises hor ab/ad, flex/ext Details DLS emphasis, rahul and unil Body Position Standing Water Level Chest Level Equipment paddles closed Reps/Duration 10x ea [place] Activities [place] Activities Bicycle Cross Country Running Hip Abduction/Adduction Sit Kicks Other Activities bicycle with arms at sides holding barbells submerged. side pendulums with isometric hold with lower leg lowering and raising. Plank with BBs held underwater Comments 11 rounds intervals PT-OP-T Assessment and Plan Start: 04/06/18 15:16 Freq: Status: Active Protocol: Document 08/18/18 11:20 DLM (Rec: 08/18/18 18:23 DL [id number]) Physical Therapy Assessment Goals activity tolerance Impairment activity tolerance Skilled Nursing Goal (LTG) Goal Met- Patient able to tolerate 45 min aquatic ex program without an increase in pain 4 Impairment Strength Railway Equipment Operator Goal (LTG) Met in LE's but not in core, core improved- Improve strength bilateral LE's and trunk to at least 4+/5 3 Impairment ROM Railway Equipment Operator Goal (LTG) Improved but not met for extension and rotation due to pain.- Improve lumbar ROM to WNL 2 Impairment LBP as high as 7/10 Short Term Goal (STG) Not met- Decrease LBP to no greater than 5/10 with usual activities Skilled Nursing Goal (LTG) Not met- Decrease pain to no greater than 3/10 1 Impairment Oswestry disability index score 40% Short Term Goal (STG) Not Met- Decrease Oswestry disability index score to 30% Skilled Nursing Goal (LTG) Oswestry score not met but pt planning to return to work- Decrease Oswestry disability index score to 20% with patient able to return to work Progress Towards Goals Progress Towards Goals Slow Progress due to Activity Tolerance Assessment Summary Assessment She tolerated her exercises well this visit. She progressed in many of her goals but unable to fully meet most of them. Pt reports significant progress in therapy since eval. Recommend return to work gradually. 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 Physical Therapy Plan Frequency and Duration Plan of Care Start Date 06/22/18 Plan of Care End Date 08/22/18 Discharge Physical Therapy Discharge Reasons Plateau in Progress Discharge Comments plan of care expiring Next Visit Focus/Plan Next Visit Plan Discharged to [facility], pt plans to continue pool exercises on her own
--- NOTE | 2018-08-18 12:05 | PT.OPDS ---
Current Diagnoses Intervertebral disc disorders with radiculopathy, lumbar region (08/18/18) Other intervertebral disc degeneration, lumbosacral region (08/18/18) Sprain of ligaments of lumbar spine, subsequent encounter (08/18/18) Provider Visit Care Team Role Provider Type Apolinar Garvin MD Attending Provider Non-Staff Primary Care Provider Specialty: Medical Address: [facility] [address] , [place], [address] Email: Visit Number Visit Number 22 Discharge Summary PT-OP-B Current Condition Start: 04/06/18 15:16 Freq: Status: Active Protocol: Document 08/18/18 11:20 DLM (Rec: 08/18/18 18:30 DLM [id number]) Current Condition History of Current Condition Onset Date September 2017 Current Complaints low back pain with radicular symptoms History of Current Condition Patient reports gradual worsening of LBP starting in September 2017, no known cause. Reports during a work shift her pain gradually worsened, severe pain that night. Hasn' t been able to work since. 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 At this time patient reports employer not willing to do any accomodation of light duty, shorter shifts, etc. Prior to exacerbation of pain September 2017 patient reports she was working 4 days per week. Long history LBP, history of knee injury with resulting complex regional pain syndrome left knee. Starting accupuncture trial today through [employer]. Previously seen by this PT for aquatic PT. Patient unable to do aquatic exercise independently due to cost. Treatment Goals Patient/Caregiver Goals Decrease pain, improve activity tolerance including ability to return to work. Prior Functional Status Baseline Function- ADL's Independent Baseline Function- Mobility Independent Baseline Function- Gait indep no device Baseline Function- Work/School working 4 days per week Baseline Function- Recreation/Hobbies minimal Current Functional Impairments (Reported) Functional Limitations- ADL's Independent Functional Limitations- Mobility/Gait she can walk about an hour before getting tired and sore Functional Limitations- Work/School she has not returned to work yet Functional Limitations- Recreation/ she does not go out much Hobbies Personal Factors Other Personal Factors That May Effect Patient smokes 1/2 to 1 pack Therapy/Recovery per day PT-OP-C Subjective Start: 04/06/18 15:16 Freq: Status: Active Protocol: Document 08/18/18 11:20 DLM (Rec: 08/18/18 18:23 DLM [id number]) OP-PT Subjective Patient Comments Patient Comments She feels she has made a lot of progress in therapy. 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 She is worried that her work might not approve it. Patient Reported Progress Improving Patient Questionnaires Oswestry Low Back Index Oswestry Score 40% Oswestry Impairment 40 to 59% Impaired (Score 40- 59) OP-PT Pain Assessment Location Lower Posterior Back Pain Location Details and right hip area Intensity 5 Scale Used Numeric (1 - 10) Description Aching Other Pain Aggravating Factors bending backwards and twisting Pain Alleviating Factors Heat Other Pain Alleviating Factors rest Comments Pain Comments Pain reported: lowest 3/10 worst 7/10 PT-OP-G Mobility & Gait Start: 04/06/18 15:16 Freq: Status: Active Protocol: Document 04/06/18 15:52 SAK (Rec: 04/06/18 16:28 SAK [id number]) OP Gait Assessment Gait Deviations General Gait Pattern Antalgic Wide Based Gait Comments Gait Comments Increased ER bilateral LE's PT-OP-J Posture/Palpation/Skin Start: 04/06/18 15:16 Freq: Status: Active Protocol: Document 08/18/18 11:20 DLM (Rec: 08/18/18 18:32 DLM [id number]) Posture Evaluation Comments Posture Comments she demonstrates improved postural awareness PT-OP-K Range of Motion Start: 04/06/18 15:16 Freq: Status: Active Protocol: Document 08/18/18 11:20 DLM (Rec: 08/18/18 18:23 DLM [id number]) Lumbar Spine Range of Motion Lumbar Spine Active Testing Position Standing Flexion 90 Lateral Flexion Left 100 Lateral Flexion Right 100 ROM Limitations Pain Comments she declined to perform extension and rotation due to fear of increased pain PT-OP-M Strength Start: 04/06/18 15:16 Freq: Status: Active Protocol: Document 08/18/18 11:20 DLM (Rec: 08/18/18 18:23 DLM [id number]) Trunk Strength Trunk Manual Muscle Testing Core Stabilization 3+/4- Hip Strength Hip Manual Muscle Testing Left Flexion (L2) 4+ Good+ Right Flexion (L2) 4+ Good+ Reason Not Measured Pain Comments hip flexion strength limited by pain Knee Strength Knee Manual Muscle Testing Left Flexion (S2) 5 Normal Extension (L3) 5 Normal Right Flexion (S2) 5 Normal Extension (L3) 5 Normal Ankle/Foot Strength Ankle and Foot Manual Muscle Testing Left Dorsiflexion (L4) 5 Normal Right Dorsiflexion (L4) 5 Normal Toe Strength Toe Manual Muscle Testing Left Great Toe Extension 5 Normal Right Great Toe Extension 5 Normal PT-OP-T Assessment and Plan Start: 04/06/18 15:16 Freq: Status: Active Protocol: Document 08/18/18 11:20 DLM (Rec: 08/18/18 18:23 DLM [id number]) Physical Therapy Assessment Goals activity tolerance Impairment activity tolerance [facility] Goal (LTG) Goal Met- Patient able to tolerate 45 min aquatic ex program without an increase in pain 4 Impairment Strength [facility] Goal (LTG) Met in LE's but not in core, core improved- Improve strength bilateral LE's and trunk to at least 4+/5 3 Impairment ROM [facility] Goal (LTG) Improved but not met for extension and rotation due to pain.- Improve lumbar ROM to WNL 2 Impairment LBP as high as 7/10 Short Term Goal (STG) Not met- Decrease LBP to no greater than 5/10 with usual activities [facility]vic[employer] Nurse Goal (LTG) Not met- Decrease pain to no greater than 3/10 1 Impairment Oswestry disability index score 40% Short Term Goal (STG) Not Met- Decrease Oswestry disability index score to 30% [facility] Goal (LTG) Oswestry score not met but pt planning to return to work- Decrease Oswestry disability index score to 20% with patient able to return to work Progress Towards Goals Progress Towards Goals Slow Progress due to Activity Tolerance Assessment Summary Assessment She tolerated her exercises well this visit. She progressed in many of her goals but unable to fully meet most of them. Pt reports significant progress in therapy since eval. Recommend return to work gradually. 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 Physical Therapy Plan Frequency and Duration Plan of Care Start Date 06/22/18 Plan of Care End Date 08/22/18 Discharge Physical Therapy Discharge Reasons Plateau in Progress Discharge Comments plan of care expiring Next Visit Focus/Plan Next Visit Plan Discharged to [facility], pt plans to continue pool exercises on her own
== END 2018-08-24 14:16 | disposition home or self-care (01) ==
LOC: PHYS 11:15
PROVIDERS: PCP Preventive Medicine Occupational Medicine; Visit Provider Preventive Medicine Occupational Medicine
DX: S33.5XXD Sprain of ligaments of lumbar spine, subsequent encounter (principal); M51.16 Intervertebral disc disorders with radiculopathy, lumbar region
CPT/HCPCS: 97010; 97110; 97113; 97162; 97535

== ENCOUNTER → 2020-06-15 11:44 | Outpatient (CLI) | payer OTHER, MEDICAID, SELFPAY ==
--- NOTE | 2020-06-15 11:46 | DI.MRI.S_ITS ---
PROCEDURE: MR LUMBAR SPINE WO CON INDICATIONS: Other intervertebral disc degeneration, lumbosacra TECHNIQUE: Noncontrast sagittal T1 spin echo and T2 fast echo, sagittal STIR, axial T1 and T2 fast spin echo through the lumbar spine. In cases with scoliosis, additional coronal T2 fast spin echo may be performed. COMPARISON: None. FINDINGS: Image quality: Excellent. Alignment and Curvature: There is trace L3-L4 anterolisthesis secondary to facet hypertrophy. Bone Marrow: Marrow is of normal overall signal. No acute vertebral body compression fractures. Spinal Cord: Conus medullaris terminates at the L1 level. Visualized cord demonstrates normal signal and size. Paraspinous Soft Tissues: No paravertebral masses. T12-L1: Loss of disc signal. Mild, diffuse disc bulge. No central stenosis. No neural foraminal narrowing. No neural compression. L1-L2: Loss of disc signal and height. Mild, diffuse disc bulge. Mild narrowing of the central canal. Mild bilateral neural foraminal narrowing. No neural compression. L2-L3: Loss of disc signal. Mild, diffuse disc bulge. Mild bilateral facet hypertrophy. Mild narrowing of the central canal. Mild bilateral neural foraminal narrowing. No neural compression L3-L4: Loss of disc signal. Mild, diffuse disc bulge. Moderate bilateral facet hypertrophy. Mild to moderate narrowing of the central canal. Mild to moderate bilateral neural foraminal narrowing. No neural compression. Fissures noted in the right foraminal and anterior annulus. L4-L5: Loss of disc signal and height. Mild, diffuse disc bulge. [id number] bilateral facet hypertrophy. Mild narrowing of the central canal. [id number] right and mild left neural foraminal narrowing. No neural compression. Fissures noted in the anterior annulus. L5-S1: Loss of disc signal. Mild, diffuse disc bulge. Small central disc protrusion. Mild bilateral facet hypertrophy. No central stenosis. No neural foraminal narrowing. No neural compression. Fissure noted in the posterior annulus. IMPRESSION: 1. Multilevel degenerative disc disease. 2. Multilevel facet arthropathy. 3. No severe central canal narrowing. 4. No severe neural foraminal narrowing. 5. No neural compression 6. L3-L4, L4-L5 and L5-S1 disc annulus fissures. Dictated by: Silvia Vasques MD, PhD on 06/17/2020 at 10:16 Approved by: Silvia Vasques MD, PhD on 06/17/2020 at 10:38
== END ==
PROVIDERS: PCP Preventive Medicine Occupational Medicine; Referring Provider Preventive Medicine Occupational Medicine; Visit Provider Preventive Medicine Occupational Medicine
DX: M51.37 Other intervertebral disc degeneration, lumbosacral region (principal); M51.36 Other intervertebral disc degeneration, lumbar region; M47.817 Spondylosis without myelopathy or radiculopathy, lumbosacral region; M47.816 Spondylosis without myelopathy or radiculopathy, lumbar region
CPT/HCPCS: 72148